=== PATIENT | female | born 1990 | race Caucasian/White ===

== ENCOUNTER 2017-02-27 11:22 | Emergency (ER) | payer BC, MEDICAID ==
--- NOTE | 2017-02-27 12:33 | EDM.PDOC ---
ED HPI GENERAL MEDICAL PROBLEM - General Chief Complaint: Abdominal Pain Stated Complaint: ABDOMINAL PAIN Time Seen by Provider: 02/27/17 11:49 Source of Information: Reports: Patient, RN Notes Reviewed - History of Present Illness INITIAL COMMENTS - FREE TEXT/NARRATIVE: 26-year-old lady comes in with abdominal pain, frequent watery diarrhea. Started with nonspecific upper mid abdominal pain 2 days ago. Sometime in the past 24 hours or so she has developed frequent watery diarrhea. SHe has had many episodes in the past 12-24 hours. She's had some nausea. No vomiting. No fever or chills. Her abdominal discomfort continues to be primarily upper mid abdomen, very intermittent in nature. No chest pain or difficulty breathing. No shoulder . discomfort. No other unusual symptomatology. Upper Abdomen Pain Score (Numeric/FACES): 3 - Related Data Allergies Allergy/AdvReac Type Severity Reaction Status Date / Time No Known Allergies Allergy Verified 02/27/17 11:45 Home Meds: Home Meds Ascorbic Acid [Vitamin C] 500 mg PO DAILY 02/27/17 [History] Ciprofloxacin HCl [Cipro] 500 mg PO BID #6 tablet 02/27/17 [Rx] PNV95/Ferrous Fumarate/FA [ Tablet] 1 tab PO DAILY 02/27/17 [History] Past Medical History - Past Surgical History HEENT Surgical History: Reports: Oral Surgery Social & Family History - Tobacco Use Smoking Status *Q: Never Smoker - Caffeine Use Caffeine Use: Reports: Coffee - Recreational Drug Use Recreational Drug Use: No ED ROS GENERAL - Review of Systems Review Of Systems: See Below Constitutional: Denies: Fever, Chills, Diaphoresis HEENT: Reports: No Symptoms Respiratory: Denies: Shortness of Breath Cardiovascular: Denies: Chest Pain GI/Abdominal: Reports: Abdominal Pain, Diarrhea, Nausea. Denies: Vomiting Musculoskeletal: Reports: No Symptoms Skin: Reports: No Symptoms Neurological: Reports: No Symptoms ED EXAM, GI/ABD - Physical Exam Exam: See Below General Appearance: Alert, No Apparent Distress Throat/Mouth: Normal Inspection, Normal Oropharynx Head: Atraumatic Neck: Supple, Full Range of Motion Respiratory/Chest: No Respiratory Distress Cardiovascular: Regular Rate, Rhythm GI/Abdominal: Soft, Tenderness (Very mild upper mid abdominal tenderness). No: Guarding, Rebound Extremities: Normal Inspection, Normal Range of Motion Neurological: Alert, Oriented, No Motor/Sensory Deficits Skin Exam: Warm, Dry, Normal Color Course - Vital Signs Last Recorded V/S: Last Vital Signs Temp 98.1 F 02/27/17 11:41 Pulse 76 02/27/17 11:41 Resp 20 02/27/17 11:41 BP 122/83 02/27/17 11:41 Pulse Ox 98 02/27/17 11:41 Departure - Departure Time of Disposition: 12:31 Disposition: Home, Self-Care 01 Condition: Fair Clinical Impression: Abdominal pain Qualifiers: Abdominal location: upper abdomen, unspecified Qualified Code(s): R10.10 - Upper abdominal pain, unspecified - Discharge Information Prescriptions: Ciprofloxacin HCl [Cipro] 500 mg PO BID #6 tablet Instructions: Abdominal Pain, Adult, [id number] Referrals: Court Brar MD [Primary Care Provider] - Forms: ED Department Discharge Additional Instructions: Clear liquids until this evening, then careful bland diet as tolerated, Cipro antibiotic 500 mg twice daily for 3 days, start that this afternoon as soon as possible, probiotic available OTC twice daily for the next 5-7 days, follow-up clinic if not much better within 2-3 days as expected, return to ED if symptoms worsening in any way
== END 2017-02-27 12:50 | disposition home or self-care (01) ==
LOC: JD.ED 11:22
CPT/HCPCS: 99283; 99284

== ENCOUNTER 2018-01-19 16:04 | Inpatient (IN) | payer BC ==
[2018-01-19] MEDS ORDERED: Zolpidem 5 MG Tab PO PRN (16:53)
[2018-01-19] MEDS ORDERED: Ondansetron 4 MG/2 ML SDV IVPUSH PRN ×2 (16:53→17:59)
[2018-01-19] MEDS ORDERED: Sodium Chloride 0.9% 10 ML Syringe FLUSH PRN (16:53)
[2018-01-19] MEDS: Misoprostol 200 MCG Tab VAG SCH ×2 (17:00→20:50)
[2018-01-19] MEDS ORDERED: Lactated Ringers 1,000 ML IV SCH (17:00)
--- NOTE | 2018-01-19 17:31 | PCM.LDHP ---
L&D History of Present Illness - General Date of Service: 01/19/18 Admit Problem/Dx: Patient Status Order with Admit Dx/Problem 01/19/18 16:55 Patient Status [ADT] Routine Admission Diagnosis/Problem Admission Diagnosis/Problem demise, greater than 22 weeks, antepartum Source of Information: Patient History Limitations: Reports: No Limitations - History of Present Illness Introduction:: Patient is a 27 y/o at 25 2/7 wks who presents today for IOL for findings of demise. Unfortunately had a affected by oomphalocele. Was seeing [facility] for care this and coordinating delivery. Called into clinic today, however, with complaints of no FM for the last 2 days. Demise was documented on US. Here today for IOL. - Related Data Allergies/Adverse Reactions: Allergies Allergy/AdvReac Type Severity Reaction Status Date / Time No Known Allergies Allergy Verified 02/27/17 11:45 Home Medications: Home Meds Ascorbic Acid [Vitamin C] 500 mg PO DAILY 02/27/17 [History] Ciprofloxacin HCl [Cipro] 500 mg PO BID #6 tablet 02/27/17 [Rx] PNV95/Ferrous Fumarate/FA [ Tablet] 1 tab PO DAILY 02/27/17 [History] Past Medical History [employer] History: Reports: PID, , Spontaneous : 2 Para: 0 - Past Surgical History HEENT Surgical History: Reports: Oral Surgery Social & Family History - Tobacco Use Smoking Status *Q: Never Smoker - Caffeine Use Caffeine Use: Reports: Coffee - Alcohol Use Alcohol Use History: No - Recreational Drug Use Recreational Drug Use: No H&P Review of Systems - Review of Systems: Review Of Systems: See Below General: Reports: No Symptoms Pulmonary: Reports: No Symptoms Cardiovascular: Reports: No Symptoms Gastrointestinal: Reports: No Symptoms Genitourinary: Reports: No Symptoms Musculoskeletal: Reports: No Symptoms Psychiatric: Reports: No Symptoms Neurological: Reports: No Symptoms L&D Exam - Exam Exam: See Below - OB Specific Movement: Not Appreciated Heart Tones: Not [place] - Mcgovern Score Mcgovern Score Cervix Position: Midposition Mcgovern Score Consistency: Medium Mcgovern Score Effacement: 0-30% Mcgovern Score Dilation: Closed Mcgovern Score 's Station: -3 Mcgovern Score Total: 2 - Exam General: Alert, Oriented, Cooperative Lungs: Clear to Auscultation, Normal Respiratory Effort Cardiovascular: Regular Rate, Regular Rhythm GI/Abdominal Exam: Soft, Non-Tender Genitourinary: Normal external exam Extremities: Normal Inspection Skin: Warm, Dry, Intact - Patient Data Result Diagrams: 01/19/18 17:25 - Problem List (1) 25 weeks gestation of SNOMED Code(s): 73896989 ICD Code: Z3A.25 - 25 WEEKS GESTATION OF Status: Acute Current Visit: Yes (2) omphalocele SNOMED Code(s): 781208704 ICD Code: NBD6478 - Status: Acute Current Visit: Yes (3) demise, greater than 22 weeks, antepartum SNOMED Code(s): 692192121, 678978233 ICD Code: O36.4XX0 - MATERNAL CARE FOR INTRAUTERINE , NOT APPLICABLE OR UNSP Status: Acute Current Visit: Yes Qualifiers: Fetus number: single or unspecified fetus Qualified Code(s): O36.4XX0 - Maternal care for intrauterine , not applicable or unspecified Problem List Initiated/Reviewed/Updated: Yes Orders Last 24hrs: Active Orders 24 hr Category Date Time Status Patient Status [ADT] Routine ADT 01/19/18 16:55 Ordered Notify Provider [RC] PRN Care 01/19/18 16:53 Ordered Peripheral IV Care [RC] . DIRECTED Care 01/19/18 16:55 Ordered Up ad Yelena [RC] ASDIRECTED Care 01/19/18 16:54 Ordered Vaginal Exam [RC] ASDIRECTED Care 01/19/18 16:53 Ordered Vital Signs [RC] ASDIRECTED Care 01/19/18 16:53 Ordered Regular Diet [DIET] Diet 01/19/18 Breakfast Ordered CBC W/O DIFF,HEMOGRAM [HEME] Routine Lab 01/19/18 16:53 Ordered TYPE AND SCREEN [BBK] Routine Lab 01/19/18 16:53 Ordered Lactated Ringers [Ringers, Lactated] 1,000 ml Med 01/19/18 17:00 Ordered IV ASDIRECTED Misoprostol [Cytotec] Med 01/19/18 17:00 Ordered 400 mcg VAG Q4H Nalbuphine [Nubain] Med 01/19/18 16:53 Ordered 10 mg IVPUSH Q2H PRN Ondansetron [Zofran] Med 01/19/18 16:53 Ordered 4 mg IVPUSH Q4H PRN Sodium Chloride 0.9% [Saline Flush] Med 01/19/18 16:53 Ordered 10 ml FLUSH ASDIRECTED PRN Zolpidem [Ambien] Med 01/19/18 16:53 Ordered 5 mg PO BEDTIME PRN Peripheral IV Insertion Adult [OM.PC] Routine Oth 01/19/18 16:53 Ordered Resuscitation Status Routine Resus Stat 01/19/18 16:53 Ordered Medication Orders Lactated Ringer's (Ringers, Lactated) 1,000 mls @ 40 mls/hr IV ASDIRECTED [facility] Misoprostol (Cytotec) 400 mcg VAG Q4H [facility] Nalbuphine HCl (Nubain) 10 mg IVPUSH Q2H PRN PRN Reason: Pain (moderate 4-6) Ondansetron HCl (Zofran) 4 mg IVPUSH Q4H PRN PRN Reason: Nausea/Vomiting Sodium Chloride (Saline Flush) 10 ml FLUSH ASDIRECTED PRN PRN Reason: Keep Vein Open Zolpidem Tartrate (Ambien) 5 mg PO BEDTIME PRN PRN Reason: Insomnia Assessment/Plan Comment:: 27 y/o woman at 25 2/7 wks with demise, oomphalocele in . * CBC and T&S * Will move forward with IOL, 400 mcg vaginally q 4 hours with 600 mcg after delivery of baby to aid in delivery of placenta * Briefly reviewed options for mementos, pictures, etc * Pain management options discussed
[2018-01-19] MEDS ORDERED: fentaNYL 100 MCG/2 ML SDV EPIDUR PRN (17:59)
[2018-01-19] MEDS ORDERED: diphenhydrAMINE 50 MG/ML SDV IVPUSH PRN (17:59)
[2018-01-19] MEDS ORDERED: ePHEDrine 50 MG/ML SDV IVPUSH PRN (17:59)
[2018-01-19] MEDS ORDERED: Bupivacaine/fentaNYL/NS 100 ML Bag EPIDUR SCH (18:00)
--- NOTE | 2018-01-19 21:07 | PCM.PNLD ---
Labor Progress Note - VS & Meds Vital Signs: Last Vital Signs Temp 37.0 C 01/19/18 16:53 Pulse 98 01/19/18 16:21 Resp 18 01/19/18 16:53 BP 120/75 01/19/18 16:21 Pulse Ox Active Medications: Current Medications Diphenhydramine HCl (Benadryl) 25 mg IVPUSH Q6H PRN PRN Reason: Pruritis Ephedrine Sulfate (Ephedrine Sulfate) 5 mg IVPUSH ASDIRECTED PRN PRN Reason: Hypotension Fentanyl (Sublimaze) 100 mcg EPIDUR ONETIME PRN PRN Reason: Pain Fentanyl/Bupivacaine HCl (Fentanyl/Bupivacaine/Ns 2 Mcg-0.125% 100 Ml) 100 ml EPIDUR ASDIRECTED [facility] Lactated Ringer's (Ringers, Lactated) 1,000 mls @ 40 mls/hr IV ASDIRECTED [facility] Misoprostol (Cytotec) 400 mcg VAG Q4H [facility] Last Admin: 01/19/18 20:50 Dose: 400 mcg Nalbuphine HCl (Nubain) 10 mg IVPUSH Q2H PRN PRN Reason: Pain (moderate 4-6) Ondansetron HCl (Zofran) 4 mg IVPUSH Q4H PRN PRN Reason: Nausea/Vomiting Ondansetron HCl (Zofran) 4 mg IVPUSH ONETIME PRN PRN Reason: Nausea/Vomiting Sodium Chloride (Saline Flush) 10 ml FLUSH ASDIRECTED PRN PRN Reason: Keep Vein Open Zolpidem Tartrate (Ambien) 5 mg PO BEDTIME PRN PRN Reason: Insomnia - Uterine Contractions Uterine Monitoring Mode: External [place] Contraction Intensity: Irritability Uterine Resting Tone: Soft - Vaginal Exam Dilation (cm): 0.5 Effacement (Percent): 50 Station: -3 Cervical Position: Posterior - Labor Progress (Free Text) Labor Progress: Doing well with 1st dose of Cytotec. 2nd dose of 400 mcg placed. Continue plan as previously described.
[2018-01-19] MEDS: Nalbuphine 20 MG/ML 1 ML Syringe IVPUSH PRN (23:21)
[2018-01-20] MEDS ORDERED: Acetaminophen 325 MG Tab PO ONE (01:22)
[2018-01-20] MEDS: Misoprostol 200 MCG Tab VAG SCH ×4 (01:39→13:33)
--- NOTE | 2018-01-20 04:55 | PCM.PREANE ---
Preanesthetic Assessment - Anesthesia/Transfusion/Family Hx Anesthesia History: Prior Anesthesia Without Reaction Family History of Anesthesia Reaction: No Transfusion History: No Prior Transfusion(s) - Review of Systems General: No Symptoms Pulmonary: No Symptoms Cardiovascular: No Symptoms Gastrointestinal: No Symptoms Neurological: No Symptoms Other: Reports: None - Physical Assessment Pulse: 98 Respiratory Rate: 18 Blood Pressure: 120/75 Temperature: 104.5 C Vital Signs: Last Vital Signs Temp 104.5 C H 01/20/18 01:37 Pulse 98 01/19/18 16:21 Resp 18 01/19/18 16:53 BP 120/75 01/19/18 16:21 Pulse Ox Height: 1.63 m Weight: 78.426 kg ASA Class: 2 Mental Status: Alert & Oriented x3 Airway Class: Mallampati = 1 Dentition: Reports: Normal Dentition Thyro-Mental Finger Breadths: 3 Mouth Opening Finger Breadths: 3 ROM/Head Extension: Full Lungs: Clear to Auscultation, Normal Respiratory Effort Cardiovascular: Regular Rate, Regular Rhythm - Lab Values: Laboratory Last Values WBC 11.97 K/mm3 (3.98-10.04) H 01/19/18 17:25 RBC 3.92 M/mm3 (3.98-5.22) L 01/19/18 17:25 Hgb 11.8 gm/L (11.2-15.7) 01/19/18 17:25 Hct 35.6 % (34.1-44.9) 01/19/18 17:25 MCV 90.8 fl (79.4-94.8) 01/19/18 17:25 MCH 30.1 pg (25.6-32.2) 01/19/18 17:25 MCHC 33.1 g/dl (32.2-35.5) 01/19/18 17:25 RDW Std Deviation 44.4 fL (36.4-46.3) 01/19/18 17:25 Plt Count 216 K/mm3 (182-369) 01/19/18 17:25 MPV 10.1 fl (9.4-12.3) 01/19/18 17:25 Blood Type O POSITIVE 01/19/18 17:25 Gel Antibody Screen Negative 01/19/18 17:25 - Allergies Allergies/Adverse Reactions: Allergies Allergy/AdvReac Type Severity Reaction Status Date / Time latex Allergy Swollen Verified 01/19/18 19:41 Eyes - Acknowledgements Anesthesia Type Planned: Epidural Pt an Appropriate Candidate for the Planned Anesthesia: Yes Alternatives and Risks of Anesthesia Discussed w Pt/Guardian: Yes Pt/Guardian Understands and Agrees with Anesthesia Plan: Yes PreAnesthesia Questionnaire [employer] History: Reports: PID, , Spontaneous - Past Surgical History HEENT Surgical History: Reports: Oral Surgery, Tonsillectomy - SUBSTANCE USE Smoking Status *Q: Never Smoker Second Hand Smoke Exposure: No Recreational Drug Use History: No - HOME MEDS Home Medications: Home Meds Ascorbic Acid [Vitamin C] 500 mg PO DAILY 02/27/17 [History] PNV95/Ferrous Fumarate/FA [ Tablet] 1 tab PO DAILY 02/27/17 [History] - CURRENT (IN HOUSE) MEDS Current Meds: Current Medications Diphenhydramine HCl (Benadryl) 25 mg IVPUSH Q6H PRN PRN Reason: Pruritis Ephedrine Sulfate (Ephedrine Sulfate) 5 mg IVPUSH ASDIRECTED PRN PRN Reason: Hypotension Fentanyl (Sublimaze) 100 mcg EPIDUR ONETIME PRN PRN Reason: Pain Fentanyl/Bupivacaine HCl (Fentanyl/Bupivacaine/Ns 2 Mcg-0.125% 100 Ml) 100 ml EPIDUR ASDIRECTED [facility] Lactated Ringer's (Ringers, Lactated) 1,000 mls @ 40 mls/hr IV ASDIRECTED [facility] Misoprostol (Cytotec) 400 mcg VAG Q4H [facility] Last Admin: 01/20/18 01:39 Dose: 400 mcg Nalbuphine HCl (Nubain) 10 mg IVPUSH Q2H PRN PRN Reason: Pain (moderate 4-6) Last Admin: 01/19/18 23:21 Dose: 10 mg Ondansetron HCl (Zofran) 4 mg IVPUSH Q4H PRN PRN Reason: Nausea/Vomiting Ondansetron HCl (Zofran) 4 mg IVPUSH ONETIME PRN PRN Reason: Nausea/Vomiting Sodium Chloride (Saline Flush) 10 ml FLUSH ASDIRECTED PRN PRN Reason: Keep Vein Open Zolpidem Tartrate (Ambien) 5 mg PO BEDTIME PRN PRN Reason: Insomnia Discontinued Medications Acetaminophen (Tylenol) 975 mg PO NOW ONE Stop: 01/20/18 01:23 Last Admin: 01/20/18 01:37 Dose: 975 mg
[2018-01-20] MEDS: Nalbuphine 20 MG/ML 1 ML Syringe IVPUSH PRN ×3 (05:00→13:32)
--- NOTE | 2018-01-20 05:28 | PCM.PNLD ---
Labor Progress Note - VS & Meds Vital Signs: Last Vital Signs Temp 104.5 C H 01/20/18 04:54 Pulse 98 01/20/18 04:54 Resp 18 01/20/18 04:54 BP 120/75 01/20/18 04:54 Pulse Ox Active Medications: Current Medications Diphenhydramine HCl (Benadryl) 25 mg IVPUSH Q6H PRN PRN Reason: Pruritis Ephedrine Sulfate (Ephedrine Sulfate) 5 mg IVPUSH ASDIRECTED PRN PRN Reason: Hypotension Fentanyl (Sublimaze) 100 mcg EPIDUR ONETIME PRN PRN Reason: Pain Fentanyl/Bupivacaine HCl (Fentanyl/Bupivacaine/Ns 2 Mcg-0.125% 100 Ml) 100 ml EPIDUR ASDIRECTED [facility] Lactated Ringer's (Ringers, Lactated) 1,000 mls @ 40 mls/hr IV ASDIRECTED [facility] Misoprostol (Cytotec) 400 mcg VAG Q4H [facility] Last Admin: 01/20/18 01:39 Dose: 400 mcg Nalbuphine HCl (Nubain) 10 mg IVPUSH Q2H PRN PRN Reason: Pain (moderate 4-6) Last Admin: 01/20/18 05:00 Dose: 10 mg Ondansetron HCl (Zofran) 4 mg IVPUSH Q4H PRN PRN Reason: Nausea/Vomiting Ondansetron HCl (Zofran) 4 mg IVPUSH ONETIME PRN PRN Reason: Nausea/Vomiting Sodium Chloride (Saline Flush) 10 ml FLUSH ASDIRECTED PRN PRN Reason: Keep Vein Open Zolpidem Tartrate (Ambien) 5 mg PO BEDTIME PRN PRN Reason: Insomnia Discontinued Medications Acetaminophen (Tylenol) 975 mg PO NOW ONE Stop: 01/20/18 01:23 Last Admin: 01/20/18 01:37 Dose: 975 mg - Uterine Contractions Contraction Intensity: Moderate to Strong - Vaginal Exam Dilation (cm): 0.5 Effacement (Percent): 50 Station: -2 Cervical Position: Midposition - Labor Progress (Free Text) Labor Progress: Patient received 3rd dose of Cytotec around 0115 overnight. Since about 0430 much more uncomfortable. Exam stable. Plunkett bulb balloon placed to aid in dilation so that AROM can be achieved. Given current degree of discomfort will hold next dose of cytotec for now. Has been febrile overnight which is thought to be secondary to high dose cytotec and not indicative of underlying infection. Will continue to monitor closely
[2018-01-20] MEDS ORDERED: Acetaminophen 325 MG Tab PO PRN ×2 (07:40→15:08)
[2018-01-20] MEDS ORDERED: Lidocaine 1% 50 ML MDV ONE (12:39)
[2018-01-20] MEDS ORDERED: Methylergonovine 0.2 MG/1 ML Amp ONE (14:19)
[2018-01-20] MEDS ORDERED: Misoprostol 200 MCG Tab PO STA (14:30)
[2018-01-20] MEDS ORDERED: Methylergonovine 0.2 MG/1 ML Amp IM STA (14:31)
--- NOTE | 2018-01-20 14:38 | PCM.DEL ---
L & D Note - General Info Date of Service: 01/20/18 - Delivery Note Cervical Ripening Method: Balloon Device, Misoprostil Delivery Outcome: Stillbirth Infant Delivery Method: Spontaneous Vaginal Delivery-Single Delivery Mode: Spontaneous Presentation: Vertex Nuchal Cord: None Anesthesia Type: None Amniotic Fluid Description: Meconium Stained Episiotomy Type: None Laceration: None Placenta: Intact, Spontaneous Cord: 3 Vessels Estimated Blood Loss: 450 Delivery Comments (Free Text/Narrative):: Patient found to be complete and began pushing. With maternal pushing effort head delivered and very quickly so did remainder of body. Cord clamped and cut. Baby handed to mom/dad. Patient given 600 mcg of buccal cytotec to aid in delivery of placenta. This occurred quickly and without incident. Inspection of the perineum showed no lacerations. Shortly after delivery patient did have an increase in bleeding. Sweep of lower uterine segment did show a moderate sized clot. Dose of IM methergine also given. These two interventions did resolve heavy bleeding - General Info Date of Service: 01/20/18 - Patient Data Vitals - Most Recent: Last Vital Signs Temp 104.5 C H 01/20/18 04:54 Pulse 98 01/20/18 04:54 Resp 18 01/20/18 04:54 BP 120/75 01/20/18 04:54 Pulse Ox Weight - Most Recent: 78.426 kg I&O - Last 24 Hours: Intake & Output 01/19/18 01/20/18 01/20/18 22:59 06:59 14:59 Intake Total 300 Balance 300 Lab Results Last 24 Hours: Laboratory Results - last 24 hr 01/19/18 01/19/18 Range/Units 17:25 17:25 WBC 11.97 H (3.98-10.04) K/mm3 RBC 3.92 L (3.98-5.22) M/mm3 Hgb 11.8 (11.2-15.7) gm/L Hct 35.6 (34.1-44.9) % MCV 90.8 (79.4-94.8) fl MCH 30.1 (25.6-32.2) pg MCHC 33.1 (32.2-35.5) g/dl RDW Std Deviation 44.4 (36.4-46.3) fL Plt Count 216 (182-369) K/mm3 MPV 10.1 (9.4-12.3) fl Blood Type O POSITIVE Gel Antibody Screen Negative Med Orders - Current: Current Medications Acetaminophen (Tylenol) 975 mg PO Q6H PRN PRN Reason: Fever Diphenhydramine HCl (Benadryl) 25 mg IVPUSH Q6H PRN PRN Reason: Pruritis Ephedrine Sulfate (Ephedrine Sulfate) 5 mg IVPUSH ASDIRECTED PRN PRN Reason: Hypotension Fentanyl (Sublimaze) 100 mcg EPIDUR ONETIME PRN PRN Reason: Pain Fentanyl/Bupivacaine HCl (Fentanyl/Bupivacaine/Ns 2 Mcg-0.125% 100 Ml) 100 ml EPIDUR ASDIRECTED [facility] Lactated Ringer's (Ringers, Lactated) 1,000 mls @ 40 mls/hr IV ASDIRECTED [facility] Misoprostol (Cytotec) 400 mcg VAG Q4H [facility] Last Admin: 01/20/18 13:33 Dose: 600 mcg Nalbuphine HCl (Nubain) 10 mg IVPUSH Q2H PRN PRN Reason: Pain (moderate 4-6) Last Admin: 01/20/18 13:32 Dose: 5 mg Ondansetron HCl (Zofran) 4 mg IVPUSH Q4H PRN PRN Reason: Nausea/Vomiting Ondansetron HCl (Zofran) 4 mg IVPUSH ONETIME PRN PRN Reason: Nausea/Vomiting Sodium Chloride (Saline Flush) 10 ml FLUSH ASDIRECTED PRN PRN Reason: Keep Vein Open Zolpidem Tartrate (Ambien) 5 mg PO BEDTIME PRN PRN Reason: Insomnia Discontinued Medications Acetaminophen (Tylenol) 975 mg PO NOW ONE Stop: 01/20/18 01:23 Last Admin: 01/20/18 01:37 Dose: 975 mg Lidocaine HCl (Xylocaine 1%) Confirm Administered Dose 50 ml .ROUTE .STK-MED ONE Stop: 01/20/18 12:40 Methylergonovine Maleate (Methergine) Confirm Administered Dose 0.2 mg .ROUTE .STK-MED ONE Stop: 01/20/18 14:20 Methylergonovine Maleate (Methergine) 0.2 mg IM Q4H STA Stop: 01/20/18 14:32 Misoprostol (Cytotec) 600 mcg PO NOW STA Stop: 01/20/18 14:31 - Problem List & Annotations (1) 25 weeks gestation of SNOMED Code(s): 93736331 Code(s): Z3A.25 - 25 WEEKS GESTATION OF Status: Acute Current Visit: Yes (2) omphalocele SNOMED Code(s): 578652420 Code(s): PDE5190 - Status: Acute Current Visit: Yes (3) demise, greater than 22 weeks, antepartum SNOMED Code(s): 563475408, 336747224 Code(s): O36.4XX0 - MATERNAL CARE FOR INTRAUTERINE , NOT APPLICABLE OR UNSP Status: Acute Current Visit: Yes Qualifiers: Fetus number: single or unspecified fetus Qualified Code(s): O36.4XX0 - Maternal care for intrauterine , not applicable or unspecified - Problem List Review Problem List Initiated/Reviewed/Updated: Yes - My Orders Last 24 Hours: My Active Orders 01/19/18 16:53 Notify Provider [RC] PRN Vaginal Exam [RC] ASDIRECTED Vital Signs [RC] ASDIRECTED Nalbuphine [Nubain] 10 mg IVPUSH Q2H PRN Ondansetron [Zofran] 4 mg IVPUSH Q4H PRN Sodium Chloride 0.9% [Saline Flush] 10 ml FLUSH ASDIRECTED PRN Zolpidem [Ambien] 5 mg PO BEDTIME PRN Peripheral IV Insertion Adult [OM.PC] Routine Resuscitation Status Routine 01/19/18 16:54 Up ad Yelena [RC] ASDIRECTED 01/19/18 16:55 Patient Status [ADT] Routine Peripheral IV Care [RC] . DIRECTED 01/19/18 17:00 Lactated Ringers [Ringers, Lactated] 1,000 ml IV ASDIRECTED Misoprostol [Cytotec] 400 mcg VAG Q4H 01/20/18 07:40 Acetaminophen [Tylenol] 975 mg PO Q6H PRN - Assessment Assessment:: 27 y/o G2 now [id number] woman PPD#0 from at 25 2/7 wks after demise; oomphalocele noted in . - Plan Plan:: * Will monitor bleeding closely * Mementos / arrangement to be made through nursing team * Does desire chromosomal microarray (Previously declined through MFM, but now wants to complete) and so ordered off of cord and placenta * Patient can discharge home late this PM vs tomorrow depending upon her preference Debbie Ayala MD
[2018-01-20] MEDS ORDERED: Witch Hazel Medicated Pads 100/Jar TOP PRN (15:08)
[2018-01-20] MEDS ORDERED: Docusate Sodium 100 MG Cap PO PRN (15:08)
[2018-01-20] MEDS ORDERED: Benzocaine/Menthol 20%-0.5% Spray 56 GM Canister TOP PRN (15:08)
[2018-01-20] MEDS ORDERED: Lanolin 100% Cream 7 GM Tube TOP PRN (15:08)
[2018-01-20] MEDS ORDERED: Ibuprofen 600 MG Tab PO PRN (15:08)
--- NOTE | 2018-01-20 15:11 | PCM.DCSUM1 ---
<Debbie Ayala - Last Filed: 01/20/18 15:11> Discharge Summary - Discharge Data Discharge Date: 01/20/18 Discharge Disposition: Home, Self-Care 01 Condition: Good - Discharge Diagnosis/Problem(s) (1) 25 weeks gestation of SNOMED Code(s): 57510512 ICD Code: Z3A.25 - 25 WEEKS GESTATION OF Status: Acute Current Visit: Yes (2) omphalocele SNOMED Code(s): 788080039 ICD Code: [id number] - Status: Acute Current Visit: Yes (3) demise, greater than 22 weeks, antepartum SNOMED Code(s): 911273900, 410643819 ICD Code: O36.4XX0 - MATERNAL CARE FOR INTRAUTERINE , NOT APPLICABLE OR UNSP Status: Acute Current Visit: Yes Qualifiers: Fetus number: single or unspecified fetus Qualified Code(s): O36.4XX0 - Maternal care for intrauterine , not applicable or unspecified - Patient Instructions Diet: Regular Diet as Tolerated Activity: As Tolerated Activity, Other: Pelvic Rest for 6 weeks Driving: May Drive Today Showering/Bathing: May Shower Showering/Bathing, Other: May Bathe Notify Provider of: Fever, Increased Pain, Swelling and Redness, Drainage, Nausea and/or Vomiting - Discharge Plan Home Medications: Home Meds PNV95/Ferrous Fumarate/FA [ Tablet] 1 tab PO DAILY 02/27/17 [History] Ibuprofen [Motrin] 600 mg PO Q6H PRN tablet 01/20/18 [Rx] Referrals: Debbie Ayala MD [Primary Care Provider] - (2 weeks - check ) - Patient Data Vitals - Most Recent: Last Vital Signs Temp 104.5 C H 01/20/18 04:54 Pulse 98 01/20/18 04:54 Resp 18 01/20/18 04:54 BP 120/75 01/20/18 04:54 Pulse Ox Weight - Most Recent: 78.426 kg I&O - Last 24 hours: Intake & Output 01/20/18 01/20/18 01/20/18 06:59 14:59 22:59 Intake Total 300 Balance 300 Lab Results - Last 24 hrs: Laboratory Results - last 24 hr 05/31/18 05/31/18 Range/Units 17:25 17:25 WBC 11.97 H (3.98-10.04) K/mm3 RBC 3.92 L (3.98-5.22) M/mm3 Hgb 11.8 (11.2-15.7) gm/L Hct 35.6 (34.1-44.9) % MCV 90.8 (79.4-94.8) fl MCH 30.1 (25.6-32.2) pg MCHC 33.1 (32.2-35.5) g/dl RDW Std Deviation 44.4 (36.4-46.3) fL Plt Count 216 (182-369) K/mm3 MPV 10.1 (9.4-12.3) fl Blood Type O POSITIVE Gel Antibody Screen Negative Med Orders - Current: Current Medications Acetaminophen (Tylenol) 650 mg PO Q4H PRN PRN Reason: mild pain or fever Benzocaine/Menthol (Dermoplast Pain Relief [place]) 0 gm TOP ASDIRECTED PRN PRN Reason: Perineal Comfort Measure Docusate Sodium (Colace) 100 mg PO BID PRN PRN Reason: Constipation Emollient Ointment (Lansinoh Hpa) 0 gm TOP ASDIRECTED PRN PRN Reason: Sore Nipples Ibuprofen (Motrin) 600 mg PO Q6H PRN PRN Reason: Mild pain or fever Witch Basia (Tucks) 1 pad TOP ASDIRECTED PRN PRN Reason: Hemorrhoid pain Discontinued Medications Acetaminophen (Tylenol) 975 mg PO NOW ONE Stop: 01/20/18 01:23 Last Admin: 01/20/18 01:37 Dose: 975 mg Acetaminophen (Tylenol) 975 mg PO Q6H PRN PRN Reason: Fever Diphenhydramine HCl (Benadryl) 25 mg IVPUSH Q6H PRN PRN Reason: Pruritis Ephedrine Sulfate (Ephedrine Sulfate) 5 mg IVPUSH ASDIRECTED PRN PRN Reason: Hypotension Fentanyl (Sublimaze) 100 mcg EPIDUR ONETIME PRN PRN Reason: Pain Fentanyl/Bupivacaine HCl (Fentanyl/Bupivacaine/Ns 2 Mcg-0.125% 100 Ml) 100 ml EPIDUR ASDIRECTED [facility] Lactated Ringer's (Ringers, Lactated) 1,000 mls @ 40 mls/hr IV ASDIRECTED MARTELL Lidocaine HCl (Xylocaine 1%) Confirm Administered Dose 50 ml .ROUTE .STK-MED ONE Stop: 01/20/18 12:40 Methylergonovine Maleate (Methergine) Confirm Administered Dose 0.2 mg .ROUTE .STK-MED ONE Stop: 01/20/18 14:20 Methylergonovine Maleate (Methergine) 0.2 mg IM Q4H STA Stop: 01/20/18 14:32 Misoprostol (Cytotec) 400 mcg VAG Q4H MARTELL Last Admin: 01/20/18 13:33 Dose: 600 mcg Misoprostol (Cytotec) 600 mcg PO NOW STA Stop: 01/20/18 14:31 Nalbuphine HCl (Nubain) 10 mg IVPUSH Q2H PRN PRN Reason: Pain (moderate 4-6) Last Admin: 01/20/18 13:32 Dose: 5 mg Ondansetron HCl (Zofran) 4 mg IVPUSH Q4H PRN PRN Reason: Nausea/Vomiting Ondansetron HCl (Zofran) 4 mg IVPUSH ONETIME PRN PRN Reason: Nausea/Vomiting Sodium Chloride (Saline Flush) 10 ml FLUSH ASDIRECTED PRN PRN Reason: Keep Vein Open Zolpidem Tartrate (Ambien) 5 mg PO BEDTIME PRN PRN Reason: Insomnia <Samantha Martinez - Last Filed: 01/21/18 08:22> Discharge Summary - Hospital Course Brief History: Admitted by Dr. Ayala for induction secondary to demise. Delivery and uncomplicated course. - Patient Instructions Diet: Regular Diet as Tolerated Activity: As Tolerated Driving: May Drive Today Showering/Bathing: May Shower Notify Provider of: Fever, Increased Pain, Swelling and Redness, Drainage, Nausea and/or Vomiting - General Info Date of Service: 01/21/18 Functional Status: Reports: Pain Controlled - Review of Systems General: Reports: No Symptoms HEENT: Reports: No Symptoms Pulmonary: Reports: No Symptoms Cardiovascular: Reports: No Symptoms Gastrointestinal: Reports: No Symptoms Genitourinary: Reports: No Symptoms Musculoskeletal: Reports: No Symptoms Skin: Reports: No Symptoms Neurological: Reports: No Symptoms Psychiatric: Reports: No Symptoms - Patient Data Vitals - Most Recent: Last Vital Signs Temp 36.6 C 01/21/18 03:45 Pulse 70 01/21/18 03:45 Resp 15 01/21/18 03:45 BP 105/71 01/21/18 03:45 Pulse Ox 97 01/21/18 03:45 I&O - Last 24 hours: Intake & Output 01/20/18 01/21/18 01/21/18 22:59 06:59 14:59 Intake Total 120 Balance 120 Med Orders - Current: Current Medications Acetaminophen (Tylenol) 650 mg PO Q4H PRN PRN Reason: mild pain or fever Benzocaine/Menthol (Dermoplast Pain Relief [place]) 0 gm TOP ASDIRECTED PRN PRN Reason: Perineal Comfort Measure Docusate Sodium (Colace) 100 mg PO BID PRN PRN Reason: Constipation Emollient Ointment (Lansinoh Hpa) 0 gm TOP ASDIRECTED PRN PRN Reason: Sore Nipples Ibuprofen (Motrin) 600 mg PO Q6H PRN PRN Reason: Mild pain or fever Last Admin: 01/20/18 21:01 Dose: 600 mg Witch Basia (Tucks) 1 pad TOP ASDIRECTED PRN PRN Reason: Hemorrhoid pain Discontinued Medications Acetaminophen (Tylenol) 975 mg PO NOW ONE Stop: 01/20/18 01:23 Last Admin: 01/20/18 01:37 Dose: 975 mg Acetaminophen (Tylenol) 975 mg PO Q6H PRN PRN Reason: Fever Diphenhydramine HCl (Benadryl) 25 mg IVPUSH Q6H PRN PRN Reason: Pruritis Ephedrine Sulfate (Ephedrine Sulfate) 5 mg IVPUSH ASDIRECTED PRN PRN Reason: Hypotension Fentanyl (Sublimaze) 100 mcg EPIDUR ONETIME PRN PRN Reason: Pain Fentanyl/Bupivacaine HCl (Fentanyl/Bupivacaine/Ns 2 Mcg-0.125% 100 Ml) 100 ml EPIDUR ASDIRECTED [facility] Lactated Ringer's (Ringers, Lactated) 1,000 mls @ 40 mls/hr IV ASDIRECTED [facility] Lidocaine HCl (Xylocaine 1%) Confirm Administered Dose 50 ml .ROUTE .STK-MED ONE Stop: 01/20/18 12:40 Methylergonovine Maleate (Methergine) Confirm Administered Dose 0.2 mg .ROUTE .STK-MED ONE Stop: 01/20/18 14:20 Methylergonovine Maleate (Methergine) 0.2 mg IM Q4H STA Stop: 01/20/18 14:32 Last Admin: 01/21/18 08:13 Dose: 0.2 mg Misoprostol (Cytotec) 400 mcg VAG Q4H [facility] Last Admin: 01/20/18 13:33 Dose: 600 mcg Misoprostol (Cytotec) 600 mcg PO NOW STA Stop: 01/20/18 14:31 Last Admin: 01/20/18 14:25 Dose: 600 mcg Nalbuphine HCl (Nubain) 10 mg IVPUSH Q2H PRN PRN Reason: Pain (moderate 4-6) Last Admin: 01/20/18 13:32 Dose: 5 mg Ondansetron HCl (Zofran) 4 mg IVPUSH Q4H PRN PRN Reason: Nausea/Vomiting Ondansetron HCl (Zofran) 4 mg IVPUSH ONETIME PRN PRN Reason: Nausea/Vomiting Sodium Chloride (Saline Flush) 10 ml FLUSH ASDIRECTED PRN PRN Reason: Keep Vein Open Zolpidem Tartrate (Ambien) 5 mg PO BEDTIME PRN PRN Reason: Insomnia - Exam General: Reports: Alert, Oriented HEENT: Reports: Pupils Equal, Pupils Reactive, EOMI, Mucous Membr. Moist/[place] Neck: Reports: Supple Lungs: Reports: Clear to Auscultation, Normal Respiratory Effort Cardiovascular: Reports: Regular Rate, Regular Rhythm GI/Abdominal Exam: Normal Bowel Sounds, Soft, Non-Tender, No Organomegaly, No Distention, No Abnormal Bruit, No Mass, Pelvis Stable Back Exam: Reports: Normal Inspection, Full Range of Motion Extremities: Normal Inspection, Normal Range of Motion, Non-Tender Skin: Reports: Warm, Dry, Intact Neurological: Reports: No New Focal Deficit Psy/Mental Status: Reports: Alert, Normal Affect, Normal Mood
[2018-01-21 14:42] VITALS: BP 110/66
== END 2018-01-21 08:20 | disposition home or self-care (01) | DRG 560 ==
LOC: JD.OB 16:04 → OBSVTOIN 01-20 14:38 → JD.OB 01-20 19:11
PROVIDERS: ADMIT Obstetrics & Gynecology; ATTEND Obstetrics & Gynecology
PROC: 10E0XZZ Delivery of Products of Conception, External Approach (ICD-10-PCS; principal; 2018-01-20)
PROC: 3E0P7VZ Introduction of Hormone into Female Reproductive, Via Natural or Artificial Opening (ICD-10-PCS; 2018-01-20)
PROC: 3E033VJ Introduction of Other Hormone into Peripheral Vein, Percutaneous Approach (ICD-10-PCS; 2018-01-20)
PROC: 10907ZC Drainage of Amniotic Fluid, Therapeutic from Products of Conception, Via Natural or Artificial Opening (ICD-10-PCS; 2018-01-20)
PROC: 0UC97ZZ Extirpation of Matter from Uterus, Via Natural or Artificial Opening (ICD-10-PCS; 2018-01-20)
DX: O36.4XX0 Maternal care for intrauterine death, not applicable or unspecified (principal); O66.3 Obstructed labor due to other abnormalities of fetus; O77.0 Labor and delivery complicated by meconium in amniotic fluid; O72.1 Other immediate postpartum hemorrhage; O75.2 Pyrexia during labor, not elsewhere classified; Z3A.25 25 weeks gestation of pregnancy; Z37.1 Single stillbirth
CPT/HCPCS: 36415; 59409; 85027; 86850; 86900; 86901; A9270-GY; J2210; J2300

== ENCOUNTER 2018-02-09 20:11 | Emergency (ER) | payer BC ==
[2018-02-09] MEDS ORDERED: Sodium Chloride 0.9% 1,000 ML IV SCH (20:15)
--- NOTE | 2018-02-09 20:19 | EDM.PDOC ---
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 Patient is 3 weeks . She unfortunately lost a 23 week gestation due to miscarriage 3 weeks ago. 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 First ended in miscarriages well. She reports today she's been bleeding quite heavily off and on starting about 1300 hrs. today. She states it feels almost like something broke inside and continued to bleed. She reports she had a fairly heavy vaginal flow for 4-5 days and it seemed to quit. Tonight she is soaked a pad per hour for 2 consecutive hours with associated passage of quarters-sized clots per vagina. Initiated diffuse lower abdominal cramping pain and low back pressure discomfort. Feeling lightheaded and dizzy. Patient is orthostatic lying blood pressure is 80/46 with a pulse rate of 73. Standing BP is 95/53 with a heart rate of 99. Onset: Today Onset Date: 02/09/18 Onset Time: 13:00 Duration: Hour(s): Location: Reports: Abdomen, Back (Lower abdominal cramping pain intermittent.) Quality: Reports: Ache ( Associated diffuse low back ache associated with menstrual cramps.), Other Severity: Moderate (Menstrual cramping) Improves with: Reports: None Worsens with: Reports: None Context: Reports: Other (Sudden heavy vaginal flow with clots and cramping 3 weeks post miscarriage at 23 weeks gestation.). Denies: Activity, Exercise, Lifting, Sick Contact, Trauma Associated Symptoms: Reports: Other. 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 Second ended 3 weeks ago January 20 at 23 weeks gestation due to congenital abnormalities of the fetus.) Para: 0 - Past Surgical History HEENT Surgical History: Reports: Oral Surgery, Tonsillectomy Social & Family History - Family History Family Medical History: Noncontributory - Caffeine Use Caffeine Use: Reports: Coffee - Living Situation & Occupation Living situation: Reports: Occupation: Employed ED ROS GENERAL - Review of Systems Review Of Systems: See Below Constitutional: Reports: Malaise, Weakness, Fatigue. Denies: Fever, Chills HEENT: Reports: No Symptoms. Denies: Vertigo Respiratory: Reports: No Symptoms Cardiovascular: Reports: Lightheadedness (With standing) Endocrine: Reports: Fatigue GI/Abdominal: Reports: Abdominal Pain (Lower abdominal cramping pain -- menstrual cramps.) : Reports: Irregular Menses (Heavy vaginal flow to the point of soaking a pad per hour for 2 consecutive hours tonight. Associated large clots.) Musculoskeletal: Reports: Back Pain Skin: Reports: No Symptoms (Low back pain associated with menstrual cramping) Neurological: Reports: No Symptoms Psychiatric: Reports: No Symptoms Hematologic/Lymphatic: Reports: No Symptoms Immunologic: Reports: No Symptoms ED EXAM, RENAL/ - Physical Exam Exam: See Below Exam Limited By: No Limitations General Appearance: Alert, WD/WN, Mild Distress Eye Exam: Bilateral Eye: Normal Inspection (Normal colored blood for margins.) Throat/Mouth: Normal Inspection, Normal Lips, Normal Teeth, Normal Oropharynx, Perioral Cyanosis Head: Atraumatic Neck: Normal Inspection, Supple, Non-Tender, Full Range of Motion. No: Lymphadenopathy (L), Lymphadenopathy (R) Respiratory/Chest: No Respiratory Distress, Lungs Clear, Normal Breath Sounds, No Accessory Muscle Use Cardiovascular: Normal Peripheral Pulses, Regular Rate, Rhythm, No Edema, No Gallop, No Murmur GI/Abdominal: Normal Bowel Sounds, Soft, No Organomegaly, Tender (Mild to moderate tenderness suprapubically.). No: Guarding, Rigid, Rebound (Female) Exam: Enlarged Uterus (4 weeks gestation.), Vaginal Bleeding ( Fairly heavy vaginal bleeding and vagina is filled with clots. Cervix is dilated and except the fingertip.), Other (Father's covered with fresh blood and dried blood.). No: Normal External Exam Neurological: Alert, Oriented, CN II-XII Intact, Normal Cognition, Normal Gait Psychiatric: Normal Affect, Normal Mood Skin Exam: Warm, Dry, Intact, Normal Color, No Rash Course - Vital Signs Last Recorded V/S: Last Vital Signs Temp 36.6 C 02/09/18 20:21 Pulse 79 02/09/18 20:21 Resp 18 02/09/18 20:21 BP 106/65 02/09/18 20:21 Pulse Ox 100 02/09/18 20:21 Orthostatic Blood Pressure [ 95/53 Standing] Orthostatic Blood Pressure [ 95/57 Sitting] Orthostatic Blood Pressure [ 80/46 Supine] - Orders/Labs/Meds Orders: Active Orders 24 hr Category Date Time Status Orthostatic Vital Signs [RC] ASDIRECTED Care 02/09/18 20:16 Active Transvaginal Non OB [US] Stat Exams 02/09/18 21:30 Taken Labs: Laboratory Tests 02/09/18 02/09/18 02/09/18 Range/Units 20:45 20:45 20:45 WBC 9.41 (3.98-10.04) K/mm3 RBC 4.03 (3.98-5.22) M/mm3 Hgb 12.0 (11.2-15.7) gm/L Hct 36.9 (34.1-44.9) % MCV 91.6 (79.4-94.8) fl MCH 29.8 (25.6-32.2) pg MCHC 32.5 (32.2-35.5) g/dl RDW Std Deviation 41.4 (36.4-46.3) fL Plt Count 260 (182-369) K/mm3 MPV 10.5 (9.4-12.3) fl Neutrophils % (Manual) 68 H (40-60) % Band Neutrophils % 0 (0-10) % Lymphocytes % (Manual) 27 (20-40) % Atypical Lymphs % 0 % Monocytes % (Manual) 3 (2-10) % Eosinophils % (Manual) 2 (0.7-5.8) % Basophils % (Manual) 0 L (0.1-1.2) Platelet Estimate Adequate RBC Morph Comment Normal Sodium 140 (136-145) mEq/L Potassium 3.6 (3.5-5.1) mEq/L Chloride 105 (98-107) mEq/L Carbon Dioxide 26 (21-32) mEq/L Anion Gap 12.6 (5-15) BUN 10 (7-18) mg/dL Creatinine 0.9 (0.55-1.02) mg/dL Est Cr Clr Drug Dosing 81.08 mL/min Estimated GFR (MDRD) > 60 (>60) mL/min BUN/Creatinine Ratio 11.1 L (14-18) Glucose 93 (74-106) mg/dL Calcium 8.8 (8.5-10.1) mg/dL Total Bilirubin 0.3 (0.2-1.0) mg/dL AST 21 (15-37) U/L ALT 24 (14-59) U/L Alkaline Phosphatase 105 (46-116) U/L Total Protein 6.7 (6.4-8.2) g/dl Albumin 3.4 (3.4-5.0) g/dl Globulin 3.3 gm/dL Albumin/Globulin Ratio 1.0 (1-2) HCG, Quant 47.0 mIU/mL Blood Type O POSITIVE Gel Antibody Screen Negative Meds: Medications Discontinued Medications Generic Name Dose Route Start Last Admin Trade Name Freq PRN Reason Stop Dose Admin Sodium Chloride 1,000 mls @ 500 mls/hr 02/09/18 20:15 02/09/18 20:25 Normal Saline IV 500 mls/hr ASDIRECTED MARTELL Administration Ondansetron HCl 4 mg 02/09/18 23:27 02/09/18 23:37 Zofran Odt PO 02/09/18 23:28 4 mg ONETIME ONE Administration Oxycodone/Acetaminophen 2 tab 02/09/18 23:26 02/09/18 23:37 Percocet 325-5 Mg PO 02/09/18 23:27 2 tab ONETIME ONE Administration - Radiology Interpretation Free Text/Narrative:: 27-year-old female presents to the ED with heavy bleeding per vagina 3 weeks . She had a spontaneous miscarriage at 23 weeks gestation due to congenital defects of the fetus. I am omphalocele plus other defects. Is 2 para 0. First ended in miscarriages well without need for D& C. Patient has heavy vaginal flow today's at since 1300 hrs. intermittently with gushes of blood and clot. Has soaked 2 pads tonight consecutively. Exam reveals vagina filled with blood clots. Cervix is dilated and patent except some fingertip. Uterus feels to be for 5 weeks in size. It is moderately tender. Plan routine labs to be done. Normal saline at 500 mils per hour. Last meal was around 1800 hrs. with some water afterwards. Transvaginal ultrasound to be done. - Re-Assessments/Exams Free Text/Narrative Re-Assessment/Exam: 02/09/18 22:25 Labs reveal a normal white count at 9.41. Differential reveals 60 % neutrophils and no bands. Hemoglobin is 12.0 with hematocrit of 36.9. Sodium is 140 with potassium of 3.6. Chloride 105 with a bicarbonate 26. And a gap is normal at 12.6. B1 is 10 with a creatinine of 0.9. Glucose is 93. Calcium is 8.8. AST is 21. ALT is 24 bilirubin is 0.3. Alkaline phosphatase is normal 105. Quantitative HCG is low at 47.0. Check her pad reveals she passed a fairly large clot per vagina after the ultrasound was completed. He states since that time bleeding seems to be minimal. On my inspection of the ultrasound appears to be a significant amount of debris in the endometrial cavity. Awaiting [facility] report. 02/09/18 23:27 shunt states she is bleeding very little since she had the ultrasound. The ultrasound report is finally available. The uterus measures 8.1 x 5.2 x 6.3 cm. The endometrium is heterogenous and there may be some retained clots within the endometrium. There is also slightly increased vascularity. There is no definite retained products of conception. In the cervix there is a hyperechoic region about 4 cm in greatest diameter that is suggestive of a clot on the cervix and lower uterine segment. No myometrial mass is identified. Right ovary and left ovary have normal blood flow. No free fluid in the pelvis. Patient is still cramping more in her right side of the left. Will give her Percocet 5//25 milligram tablet now with Zofran 4 mg by mouth as well. 1 tablet will be given for Percocet at home as well if needed. She will follow-up with Dr. Lowe tomorrow if flow increases overnight or she soaks more than 2 pads per hour. Of note her IV infiltrated left volar forearm with mild swelling and ecchymoses. This occurred at after about 600 mils of IV fluid . IV was removed. Plan she'll be discharged to home on Percocet 5/325 milligram tablet now with Zofran 4 mg sublingual. One Percocet will be sent home with her to be used in 4-6 hours if needed for abdominal cramping pain. Advised follow-up with Dr. Ayala tomorrow. Departure - Departure Time of Disposition: 23:29 Disposition: Home, Self-Care 01 Condition: Fair Clinical Impression: bleeding Qualifiers: hemorrhage type: delayed hemorrhage Qualified Code(s): O72.2 - Delayed and secondary hemorrhage - Discharge Information Instructions: Hemorrhage Referrals: Debbie Ayala MD [Primary Care Provider] - Forms: ED Department Discharge Additional Instructions: Evaluation the emergency room tonight in regards to heavy vaginal bleeding that started at about 1300 hrs. today. Associated passage of clots. Miscarriage occurred approximately [address] Ayala was fairly confident that placenta was removed intact. Vital signs reveal that you are mildly orthostatic on short confluence. You therefore received intravenous fluids while in the ED but unfortunately the IV went interstitial at about 600 mils. He was thus removed. Expect soft tissue swelling to dissipate over the next 48 hours the left forearm. Lab work revealed hemoglobin to be stable at 12.0. Normal is 14. Patency test is most positive and the quantitative beta-hCG was 45 which is very low but normal is 0. Ultrasound performed reveals mild debris within the endometrial cavity suggestive of some blood clot. There is a larger clot down in the lower uterine segment and cervix that has to pass yet. Periods some increased cramping overnight with passage of clot but I feel the bleeding for the most part will come under control over the next 48 hours. Do not see a need for D&C at this time. However if the bleeding continues overnight and use soak a pad per hour again for 2 consecutive hours then follow-up with Dr. Ayala is indicated. You're given a Percocet tablet 5/3/25 milligrams and Zofran under the tongue in the ED before discharge. He may repeat the Percocet with little food or crackers in your stomach in 4-6 hours if needed. After this may take Motrin 600 mg every 6 hours which relieves some cramping and reduces blood loss. - My Orders Last 24 Hours: My Active Orders 02/09/18 20:16 Orthostatic Vital Signs [RC] ASDIRECTED 02/09/18 21:30 Transvaginal Non OB [US] Stat - Assessment/Plan Last 24 Hours: My Active Orders 02/09/18 20:16 Orthostatic Vital Signs [RC] ASDIRECTED 02/09/18 21:30 Transvaginal Non OB [US] Stat
[2018-02-09 20:23] VITALS: BP 106/65
[2018-02-09] MEDS ORDERED: Acetaminophen/oxyCODONE 325-5 MG Tab PO ONE (23:26)
[2018-02-09] MEDS ORDERED: Ondansetron 4 MG Tab.DIS PO ONE (23:27)
--- NOTE | 2018-02-10 10:22 | US ---
Pelvic ultrasound: Multiple real-time images were obtained transvaginally. Comparison: No previous study. Uterus is anteverted. Heterogeneous material identified within the endometrial cavity showing increased vascularity. Findings are most likely due to retained products of conception given the increased vascularity. Echogenic area is seen within the lower uterine segment measuring up to 4.0 cm most likely representing blood clot. Ovaries are not identified with certainty. No free fluid is seen. Measurements: Uterus: Length 8.1 cm, transverse width 6.3 cm, AP height 5.2 cm Impression: 1. Heterogeneous material within the endometrial cavity showing increased vascularity most likely representing retained products of conception. 4 cm blood clot felt to be present within the lower uterine segment. 2. No additional abnormality is identified. Diagnostic code #3 I agree with preliminary report from [facility], finalized at 02/10/18, 1209 AM Central Time
== END 2018-02-09 23:45 | disposition home or self-care (01) ==
LOC: JD.ED 20:11
DX: O72.2 Delayed and secondary postpartum hemorrhage (principal); Z79.899 Other long term (current) drug therapy; Z91.040 Latex allergy status
CPT/HCPCS: 36415; 76830; 80053; 84702; 85007; 85027; 86850; 86900; 86901; 96360; 99284; A9270; J7040; 99283

== ENCOUNTER 2018-02-13 09:35 | Inpatient (IN) | payer BC ==
[~2018-02-13 09:35] MED LIST: Lidocaine 1% 4 ML ONE; Midazolam 1 MG/ML 2 ML SDV ONE; Ondansetron 4 MG/2 ML SDV ONE; Propofol 200 MG/20 ML SDV ONE; Rocuronium 50 MG/5 ML Vial ONE; fentaNYL 100 MCG/2 ML SDV ONE
[2018-02-13] MEDS ORDERED: ceFAZolin 2 GM in Premix Bag 1 BAG IV ONE (09:43)
--- NOTE | 2018-02-13 09:46 | PCM.HP ---
H&P History of Present Illness - General Date of Service: 02/13/18 Admit Problem/Dx: Admission Diagnosis/Problem Admission Diagnosis/Problem hemorrhage Source of Information: Patient History Limitations: Reports: No Limitations - History of Present Illness Initial Comments - Free Text/Narative: Patient is a 27 y/o who presented today for concerns of on and off bleeding after her delivery on 01/20. Delivery was after IOL for a 25 week demise of her baby girl. Had an US done this AM which showed a possible area of POC in the cervix. When seen in clinic this was noted on exam and so removed in office. Afterwards patient had pronounced bleeding and syncopal episode necessitating transfer via ambulance to hospital in preparation for emergent D&C. Lower Pelvic Pain Score (Numeric/FACES): 1 - Related Data Allergies/Adverse Reactions: Allergies Allergy/AdvReac Type Severity Reaction Status Date / Time latex Allergy Swollen Verified 02/09/18 20:23 Eyes Home Medications: Home Meds PNV95/Ferrous Fumarate/FA [ Tablet] 1 tab PO DAILY 02/27/17 [History] Ibuprofen [Motrin] 600 mg PO Q6H PRN tablet 01/20/18 [Rx] Acetaminophen/oxyCODONE [Percocet 325-5 MG] 1 - 2 tab PO Q4H PRN #10 tablet [Rx] Past Medical History [employer] History: Reports: PID, Spontaneous : 2 Para: 0 - Past Surgical History HEENT Surgical History: Reports: Oral Surgery, Tonsillectomy Social & Family History - Family History Family Medical History: Noncontributory - Tobacco Use Smoking Status *Q: Never Smoker - Caffeine Use Caffeine Use: Reports: Coffee - Alcohol Use Alcohol Use History: No - Recreational Drug Use Recreational Drug Use: No - Living Situation & Occupation Living situation: Reports: Occupation: Employed H&P Review of Systems - Review of Systems: Review Of Systems: See Below General: Reports: Fatigue Pulmonary: Reports: No Symptoms Cardiovascular: Reports: No Symptoms Gastrointestinal: Reports: Abdominal Pain Genitourinary: Reports: Other (heavy bleeding) Musculoskeletal: Reports: No Symptoms Psychiatric: Reports: No Symptoms Neurological: Reports: No Symptoms Exam - Exam Exam: See Below - Exam General: Alert, Oriented Lungs: Clear to Auscultation, Normal Respiratory Effort Cardiovascular: Regular Rate, Regular Rhythm GI/Abdominal Exam: Soft, Tender (Female) Exam: Products of Conception, Vaginal Bleeding Extremities: Normal Inspection Skin: Warm, Dry, Intact - Patient Data Result Diagrams: 02/14/18 05:20 - Problem List (1) bleeding SNOMED Code(s): 10482662 ICD Code: O72.1 - OTHER IMMEDIATE HEMORRHAGE Status: Acute Qualifiers: hemorrhage type: delayed hemorrhage Qualified Code(s) : O72.2 - Delayed and secondary hemorrhage Problem List Initiated/Reviewed/Updated: Yes Orders Last 24hrs: Active Orders 24 hr Category Date Time Status Patient Status [ADT] Routine ADT 02/13/18 09:44 Ordered Verify Patient Consent Obtain [RC] PER UNIT ROUTINE Care 02/13/18 09:44 Ordered Nothing Per Oral Diet [DIET] Diet 02/13/18 Breakfast Ordered CBC WITH AUTO DIFF [HEME] Routine Lab 02/13/18 09:43 Ordered FIBRINOGEN [COAG] Routine Lab 02/13/18 09:43 Ordered INR,PT,PROTHROMBIN TIME [COAG] Routine Lab 02/13/18 09:43 Ordered PTT,PARTIAL THROMBOPLSTIN TIME [COAG] Routine Lab 02/13/18 09:43 Ordered TYPE AND SCREEN [BBK] Routine Lab 02/13/18 09:43 Ordered ceFAZolin [Ancef] 2 gm Med 02/13/18 09:43 Ordered Premix Bag 1 bag IV ONETIME Schedule Procedure [COMM] Stat Oth 02/13/18 09:43 Ordered Sequential Compression Device [OM.PC] Per Unit Routine Oth 02/13/18 09:44 Ordered Resuscitation Status Routine Resus Stat 02/13/18 09:43 Ordered Assessment/Plan Comment:: 27 y/o who is s/p on 01/20 after 25 wk IOL now with hemorrhage/retained POC. * CBC, T&S, PT, PTT, Fibrinogen * Plan for emergent D&C. Anesthesia and PACU aware * Consent reviewed and signed
[2018-02-13] MEDS ORDERED: Methylergonovine 0.2 MG/1 ML Amp ONE (10:13)
[2018-02-13] MEDS ORDERED: Lactated Ringers 1,000 ML ONE ×4 (10:16→10:37)
[2018-02-13] MEDS ORDERED: Neostigmine Methylsulfate 1 MG/ML 5 ML Syringe ONE (10:52)
[2018-02-13] MEDS ORDERED: fentaNYL 100 MCG/2 ML SDV IVPUSH PRN (11:14)
[2018-02-13] MEDS ORDERED: HYDROmorphone 0.5 MG/0.5 ML Syringe IVPUSH PRN (11:14)
--- NOTE | 2018-02-13 11:15 | PCM.POSTAN ---
POST ANESTHESIA ASSESSMENT - MENTAL STATUS Mental Status: Alert, Oriented - VITAL SIGNS Pulse Rate: 94 SaO2: 94 Resp Rate: 13 Blood Pressure: 106/71 Temperature: 36.6 C - RESPIRATORY Respiratory Status: Respiratory Rate WNL, Airway Patent, O2 Saturation Stable, Supplemental Oxygen - CARDIOVASCULAR CV Status: Pulse Rate WNL, Blood Pressure Stable - GASTROINTESTINAL GI Status: No Symptoms - PAIN Pain Score: 2 - POST OP HYDRATION Hydration Status: Adequate & Stable - OBSERVATIONS Free Text/Narrative:: no anesthesia complications noted
--- NOTE | 2018-02-13 11:17 | PCM.PREANE ---
Preanesthetic Assessment - Anesthesia/Transfusion/Family Hx Anesthesia History: Prior Anesthesia Without Reaction Family History of Anesthesia Reaction: No Transfusion History: No Prior Transfusion(s) - Review of Systems General: Weakness, Fatigue, Malaise Pulmonary: No Symptoms Cardiovascular: No Symptoms Gastrointestinal: No Symptoms Neurological: No Symptoms Other: Reports: None - Physical Assessment NPO Status Date: 02/12/18 NPO Status Time: 00:00 Pulse: 94 O2 Sat by Pulse Oximetry: 94 Respiratory Rate: 13 Blood Pressure: 106/71 Temperature: 36.6 C Vital Signs: Last Vital Signs Temp 36.6 C 02/13/18 11:15 Pulse 94 02/13/18 11:15 Resp 13 02/13/18 11:15 BP 106/71 02/13/18 11:15 Pulse Ox 94 L 02/13/18 11:15 ASA Class: 2E Mental Status: Alert & Oriented x3 Airway Class: Mallampati = 1 Dentition: Reports: Normal Dentition Thyro-Mental Finger Breadths: 3 Mouth Opening Finger Breadths: 3 ROM/Head Extension: Full Lungs: Clear to Auscultation, Normal Respiratory Effort Cardiovascular: Regular Rate, Regular Rhythm - Lab Values: Laboratory Last Values WBC 5.28 K/mm3 (3.98-10.04) 02/13/18 10:05 RBC 2.57 M/mm3 (3.98-5.22) L 02/13/18 10:05 Hgb 7.7 gm/L (11.2-15.7) L 02/13/18 10:05 Hct 23.8 % (34.1-44.9) L 02/13/18 10:05 MCV 92.6 fl (79.4-94.8) 02/13/18 10:05 MCH 30.0 pg (25.6-32.2) 02/13/18 10:05 MCHC 32.4 g/dl (32.2-35.5) 02/13/18 10:05 RDW Std Deviation 40.4 fL (36.4-46.3) 02/13/18 10:05 Plt Count 172 K/mm3 (182-369) L 02/13/18 10:05 MPV 10.4 fl (9.4-12.3) 02/13/18 10:05 Neut % (Auto) 64.4 % (34.0-71.1) 02/13/18 10:05 Lymph % (Auto) 27.1 % (19.3-51.7) 02/13/18 10:05 [place] % (Auto) 5.1 % (4.7-12.5) 02/13/18 10:05 Eos % (Auto) 2.8 (0.7-5.8) 02/13/18 10:05 Baso % (Auto) 0.6 % (0.1-1.2) 02/13/18 10:05 Neut # (Auto) 3.40 K/mm3 (1.56-6.13) 02/13/18 10:05 Lymph # (Auto) 1.43 K/mm3 (1.18-3.74) 02/13/18 10:05 [place] # (Auto) 0.27 K/mm3 (0.24-0.36) 02/13/18 10:05 Eos # (Auto) 0.15 K/mm3 (0.04-0.36) 02/13/18 10:05 Baso # (Auto) 0.03 K/mm3 (0.01-0.08) 02/13/18 10:05 Manual Slide Review Abnormal smear 02/13/18 10:05 PT 11.0 SECONDS (9.5-12.1) 02/13/18 10:05 INR 1.01 02/13/18 10:05 APTT 25 SECONDS (24-31) 02/13/18 10:05 Fibrinogen 217 mg/dL (187-446) 02/13/18 10:05 Blood Type O POSITIVE 02/13/18 10:05 Gel Antibody Screen Negative 02/13/18 10:05 Crossmatch See Detail 02/13/18 10:05 - Allergies Allergies/Adverse Reactions: Allergies Allergy/AdvReac Type Severity Reaction Status Date / Time latex Allergy Swollen Verified 02/09/18 20:23 Eyes - Anesthesia Plan Pre-Op Medication Ordered: None - Acknowledgements Anesthesia Type Planned: General Anesthesia Pt an Appropriate Candidate for the Planned Anesthesia: Yes Alternatives and Risks of Anesthesia Discussed w Pt/Guardian: Yes Pt/Guardian Understands and Agrees with Anesthesia Plan: Yes PreAnesthesia Questionnaire [employer] History: Reports: PID, , Spontaneous - Past Surgical History HEENT Surgical History: Reports: Oral Surgery, Tonsillectomy - HOME MEDS Home Medications: Home Meds PNV95/Ferrous Fumarate/FA [ Tablet] 1 tab PO DAILY 02/27/17 [History] Ibuprofen [Motrin] 600 mg PO Q6H PRN tablet 01/20/18 [Rx] - CURRENT (IN HOUSE) MEDS Current Meds: Current Medications Fentanyl (Sublimaze) 50 mcg IVPUSH Q5M PRN PRN Reason: Pain Hydromorphone HCl (Dilaudid) 0.5 mg IVPUSH ONETIME PRN PRN Reason: Pain Discontinued Medications Fentanyl (Sublimaze) Confirm Administered Dose 100 mcg .ROUTE .STK-MED ONE Stop: 02/13/18 09:15 Glycopyrrolate () Confirm Administered Dose 1 mg .ROUTE .STK-MED ONE Stop: 02/13/18 10:53 Lidocaine HCl (Xylocaine-Mpf 1%) Confirm Administered Dose 4 mls @ as directed .ROUTE .STK-MED ONE Stop: 02/13/18 09:15 Cefazolin Sodium/Dextrose 2 gm (/ Premix) 50 mls @ 100 mls/hr IV ONETIME ONE Stop: 02/13/18 10:12 Lactated Ringer's (Ringers, Lactated) Confirm Administered Dose 1,000 mls @ as directed .ROUTE .STK-MED ONE Stop: 02/13/18 10:17 Lactated Ringer's (Ringers, Lactated) Confirm Administered Dose 1,000 mls @ as directed .ROUTE .STK-MED ONE Stop: 02/13/18 10:17 Lactated Ringer's (Ringers, Lactated) Confirm Administered Dose 1,000 mls @ as directed .ROUTE .STK-MED ONE Stop: 02/13/18 10:26 Lactated Ringer's (Ringers, Lactated) Confirm Administered Dose 1,000 mls @ as directed .ROUTE .STK-MED ONE Stop: 02/13/18 10:38 Methylergonovine Maleate (Methergine) Confirm Administered Dose 0.2 mg .ROUTE .STK-MED ONE Stop: 02/13/18 10:14 Midazolam HCl (Versed 1 Mg/Ml) Confirm Administered Dose 2 mg .ROUTE .STK-MED ONE Stop: 02/13/18 09:15 Neostigmine Methylsulfate (Neostigmine) Confirm Administered Dose 5 mg .ROUTE .STK-MED ONE Stop: 02/13/18 10:53 Ondansetron HCl (Zofran) Confirm Administered Dose 4 mg .ROUTE .STK-MED ONE Stop: 02/13/18 09:15 Propofol (Diprivan 20 Ml) Confirm Administered Dose 200 mg .ROUTE .STK-MED ONE Stop: 02/13/18 09:15 Rocuronium [place] (Zemuron) Confirm Administered Dose 50 mg .ROUTE .STK-MED ONE Stop: 02/13/18 09:15
--- NOTE | 2018-02-13 11:20 | PCM.OPNOTE ---
- General Post-Op/Procedure Note Date of Surgery/Procedure: 02/13/18 Operative Procedure(s): Suction D&C Findings: Large amount of bleeding present on exam. Mobile, anteverted uterus. No appreciable adnexal enlargement. Pre Op Diagnosis: Retained products of conception - hemorrhage Post-Op Diagnosis: Same Anesthesia Technique: General ET Tube Primary Surgeon: Debbie Ayala Anesthesia Provider: Edwin Gustafson Pathology: Uterine contents sent to pathology Fluid Replacement, Intraop: 3,300 EBL in mLs: 800 Complications: None Condition: Good Free Text/Narrative:: The patient was brought to the OR where anesthesia was induced without difficulty. She was placed in the dorsal lithotomy position and prepped and drapped in the usual sterile fashion. A bi-valve speculum was placed in the vagina and the cervix was then visualized. An allis clamp was placed on the anterior lip of the cervix. Next the cervix was dilated to a #9 hegar dilator under ultrasound guidance. A size 9-mm cannula was then inserted into the uterus up to the level of the fundus. Next an electric vacuum aspiration was performed by slowly rotating the cannula and performing a gentle in and out motion. Aspiration of uterine contents was performed with abdominal ultrasound guidance. This procedure was repeated until no further return of tissue noted and ultrasound demonstrated a thin uterine stripe. Unfortunately even when the uterus was empty there was still quite pronounced bleeding noted on exam. Due to this finding decision made to insert a severino balloon into the uterine cavity and inflate with 30 cc of fluid to tamponade uterus. This was left in place for about 10 minutes. Attempt made to deflate balloon, but bleeding again increased with this action. Balloon inflated to a total of 25 cc with again resolution of bleeding. Decision made to leave in place and to deflate slowly on the floor. The Allis clamp was removed from the cervix and the site appeared hemostatic. A severino catheter was also inserted into the bladder. Patient was awoken and taken to the PACU. 1 unit of PRBC hung in PACU.
[2018-02-13] MEDS ORDERED: Haloperidol Lactate 5 MG/ML SDV IVPUSH ONE (11:25)
[2018-02-13] MEDS ORDERED: Ondansetron 4 MG/2 ML SDV ONE (12:38)
--- NOTE | 2018-02-13 12:40 | PCM.SN ---
- Free Text/Narrative Note: 1240 Patient just arrived to floor. Doing well with minimal bleeding. 5 cc taken out of uterine balloon. Now down to 20 cc remaining. Will remove additional fluid later this PM. Debbie Ayala MD
[2018-02-13] MEDS ORDERED: Ondansetron 4 MG/2 ML SDV IVPUSH PRN (12:41)
[2018-02-13] MEDS ORDERED: Lactated Ringers 1,000 ML IV SCH (12:41)
[2018-02-13] MEDS ORDERED: Acetaminophen/oxyCODONE 325-5 MG Tab PO PRN (12:41)
[2018-02-13] MEDS ORDERED: Morphine 4 MG/ML Syringe IVPUSH PRN (14:18)
[2018-02-13] MEDS: Methylergonovine 0.2 MG/1 ML Amp IM SCH ×3 (14:40→22:46)
[2018-02-13] MEDS ORDERED: ceFAZolin 1 GM in Premix Bag 1 BAG IV SCH (15:30)
[2018-02-13] MEDS ORDERED: Clindamycin Phosphate 900 MG in Sodium Chloride 0.9% 100 ML IV ONE (17:50)
[2018-02-13] MEDS ORDERED: Gentamicin 360 MG in Sodium Chloride 0.9% 100 ML IV ONE (17:50)
--- NOTE | 2018-02-13 17:59 | PCM.SN ---
- Free Text/Narrative Note: 9108 Patient doing well. Minimal bleeding and tolerating bulb well. 10 cc of saline taken out of bulb, only 10 cc remaining. No increase in bleeding after this step. Will try to remove completely later tonight. Did have an elevated temperature of 100.5. Will switch antibiotics from Ancef to Clindamycin to Gentamicin. Will continue in house along with scheduled methergine. Debbie Ayala MD
[2018-02-13] MEDS ORDERED: Sodium Chloride 0.9% 10 ML Syringe FLUSH PRN (19:49)
--- NOTE | 2018-02-13 19:51 | PCM.SN ---
- Free Text/Narrative Note: 194 Last 10 cc of uterine balloon deflated and removed. Bleeding seems minimal. Will give last dose of methergine at 2230. Continue antibiotics. SLIV. Repeat CBC in AM Debbie Ayala MD
[2018-02-14] MEDS: Clindamycin Phosphate 900 MG in Sodium Chloride 0.9% 100 ML IV SCH ×2 (02:21→10:00)
--- NOTE | 2018-02-14 07:03 | PCM.SURGPN ---
- General Info Date of Service: 02/14/18 POD#: 1 Functional Status: Reports: Pain Controlled, Tolerating Diet, Ambulating, Urinating - Review of Systems General: Reports: No Symptoms Pulmonary: Reports: No Symptoms Cardiovascular: Reports: No Symptoms Gastrointestinal: Reports: No Symptoms Genitourinary: Reports: No Symptoms Musculoskeletal: Reports: No Symptoms - Patient Data Vitals - Most Recent: Last Vital Signs Temp 37.2 C 02/14/18 03:31 Pulse 77 02/14/18 03:31 Resp 15 02/14/18 03:31 BP 91/49 L 02/14/18 03:31 Pulse Ox 97 02/14/18 03:31 Weight - Most Recent: 73.028 kg I&O - Last 24 Hours: Intake & Output 02/13/18 02/14/18 02/14/18 22:59 06:59 14:59 Intake Total 2300 Output Total 1925 250 Balance 375 -250 Lab Results Last 24 Hrs: Laboratory Results - last 24 hr 02/13/18 02/13/18 02/13/18 Range/Units 10:05 10:05 10:05 WBC 5.28 (3.98-10.04) K/mm3 RBC 2.57 L (3.98-5.22) M/mm3 Hgb 7.7 L (11.2-15.7) gm/L Hct 23.8 L (34.1-44.9) % MCV 92.6 (79.4-94.8) fl MCH 30.0 (25.6-32.2) pg MCHC 32.4 (32.2-35.5) g/dl RDW Std Deviation 40.4 (36.4-46.3) fL Plt Count 172 L (182-369) K/mm3 MPV 10.4 (9.4-12.3) fl Neut % (Auto) 64.4 (34.0-71.1) % Lymph % (Auto) 27.1 (19.3-51.7) % [place] % (Auto) 5.1 (4.7-12.5) % Eos % (Auto) 2.8 (0.7-5.8) Baso % (Auto) 0.6 (0.1-1.2) % Neut # (Auto) 3.40 (1.56-6.13) K/mm3 Lymph # (Auto) 1.43 (1.18-3.74) K/mm3 [place] # (Auto) 0.27 (0.24-0.36) K/mm3 Eos # (Auto) 0.15 (0.04-0.36) K/mm3 Baso # (Auto) 0.03 (0.01-0.08) K/mm3 Manual Slide Review Abnormal smear PT 11.0 (9.5-12.1) SECONDS INR 1.01 APTT 25 (24-31) SECONDS Fibrinogen 217 (187-446) mg/dL Blood Type O POSITIVE Gel Antibody Screen Negative Crossmatch See Detail 02/13/18 02/14/18 Range/Units 16:13 05:20 WBC 17.91 H 9.21 (3.98-10.04) K/mm3 RBC 3.31 L 2.79 L (3.98-5.22) M/mm3 Hgb 10.1 L 8.5 L (11.2-15.7) gm/L Hct 30.1 L 25.8 L (34.1-44.9) % MCV 90.9 92.5 (79.4-94.8) fl MCH 30.5 30.5 (25.6-32.2) pg MCHC 33.6 32.9 (32.2-35.5) g/dl RDW Std Deviation 41.9 43.1 (36.4-46.3) fL Plt Count 205 187 (182-369) K/mm3 MPV 10.7 11.0 (9.4-12.3) fl Neut % (Auto) 92.7 H (34.0-71.1) % Lymph % (Auto) 5.6 L (19.3-51.7) % [place] % (Auto) 1.3 L (4.7-12.5) % Eos % (Auto) 0.1 L (0.7-5.8) Baso % (Auto) 0.1 (0.1-1.2) % Neut # (Auto) 16.61 H (1.56-6.13) K/mm3 Lymph # (Auto) 1.01 L (1.18-3.74) K/mm3 [place] # (Auto) 0.23 L (0.24-0.36) K/mm3 Eos # (Auto) 0.01 L (0.04-0.36) K/mm3 Baso # (Auto) 0.02 (0.01-0.08) K/mm3 Manual Slide Review Normal smear PT (9.5-12.1) SECONDS INR APTT (24-31) SECONDS Fibrinogen (187-446) mg/dL Blood Type Gel Antibody Screen Crossmatch Med Orders - Current: Current Medications Clindamycin Phosphate 900 mg/ (Sodium Chloride) 106 mls @ 100 mls/hr IV Q8H MARTELL Stop: 02/14/18 11:04 Last Admin: 02/14/18 02:21 Dose: 100 mls/hr Morphine Sulfate (Morphine) 4 mg IVPUSH Q2H PRN PRN Reason: pain/cramping Last Admin: 02/13/18 14:41 Dose: 4 mg Ondansetron HCl (Zofran) 4 mg IVPUSH Q4H PRN PRN Reason: Nausea/Vomiting Last Admin: 02/13/18 12:40 Dose: 4 mg Oxycodone/Acetaminophen (Percocet 325-5 Mg) 2 tab PO Q4H PRN PRN Reason: Pain (moderate 4-6) Sodium Chloride (Saline Flush) 10 ml FLUSH ASDIRECTED PRN PRN Reason: Keep Vein Open Discontinued Medications Fentanyl (Sublimaze) Confirm Administered Dose 100 mcg .ROUTE .STK-MED ONE Stop: 02/13/18 09:15 Fentanyl (Sublimaze) 50 mcg IVPUSH Q5M PRN PRN Reason: Pain Last Admin: 02/13/18 11:22 Dose: 50 mcg Glycopyrrolate () Confirm Administered Dose 1 mg .ROUTE .STK-MED ONE Stop: 02/13/18 10:53 Haloperidol Lactate (Haldol) 1 mg IVPUSH ONETIME ONE Stop: 02/13/18 11:26 Last Admin: 02/13/18 11:36 Dose: 1 mg Hydromorphone HCl (Dilaudid) 0.5 mg IVPUSH ONETIME PRN PRN Reason: Pain Stop: 02/13/18 11:15 Lidocaine HCl (Xylocaine-Mpf 1%) Confirm Administered Dose 4 mls @ as directed .ROUTE .STK-MED ONE Stop: 02/13/18 09:15 Cefazolin Sodium/Dextrose 2 gm (/ Premix) 50 mls @ 100 mls/hr IV ONETIME ONE Stop: 02/13/18 10:12 Last Admin: 02/13/18 13:41 Dose: Not Given Lactated Ringer's (Ringers, Lactated) Confirm Administered Dose 1,000 mls @ as directed .ROUTE .STK-MED ONE Stop: 02/13/18 10:17 Lactated Ringer's (Ringers, Lactated) Confirm Administered Dose 1,000 mls @ as directed .ROUTE .STK-MED ONE Stop: 02/13/18 10:17 Lactated Ringer's (Ringers, Lactated) Confirm Administered Dose 1,000 mls @ as directed .ROUTE .STK-MED ONE Stop: 02/13/18 10:26 Lactated Ringer's (Ringers, Lactated) Confirm Administered Dose 1,000 mls @ as directed .ROUTE .[facility]-MED ONE Stop: 02/13/18 10:38 Cefazolin Sodium/Dextrose 1 gm (/ Premix) 50 mls @ 100 mls/hr IV Q6H [facility] Last Admin: 02/13/18 15:37 Dose: 100 mls/hr Lactated Ringer's (Ringers, Lactated) 1,000 mls @ 50 mls/hr IV ASDIRECTED [facility] Last Admin: 02/13/18 13:02 Dose: 50 mls/hr Clindamycin Phosphate 900 mg/ (Sodium Chloride) 106 mls @ 100 mls/hr IV ONETIME ONE Stop: 02/13/18 18:53 Last Admin: 02/13/18 18:14 Dose: 100 mls/hr Gentamicin Sulfate 360 mg/ (Sodium Chloride) 109 mls @ 199.796 mls/hr IV ONETIME ONE Stop: 02/13/18 18:22 Last Admin: 02/13/18 19:18 Dose: 199.796 mls/hr Methylergonovine Maleate (Methergine) Confirm Administered Dose 0.2 mg .ROUTE .STK-MED ONE Stop: 02/13/18 10:14 Last Admin: 02/13/18 10:17 Dose: 0.2 mg Methylergonovine Maleate (Methergine) 0.2 mg IM Q4H [facility] Stop: 02/13/18 23:00 Last Admin: 02/13/18 22:46 Dose: 0.2 mg Midazolam HCl (Versed 1 Mg/Ml) Confirm Administered Dose 2 mg .ROUTE .STK-MED ONE Stop: 02/13/18 09:15 Neostigmine Methylsulfate (Neostigmine) Confirm Administered Dose 5 mg .ROUTE .STK-MED ONE Stop: 02/13/18 10:53 Ondansetron HCl (Zofran) Confirm Administered Dose 4 mg .ROUTE .STK-MED ONE Stop: 02/13/18 09:15 Ondansetron HCl (Zofran) Confirm Administered Dose 4 mg .ROUTE .STK-MED ONE Stop: 02/13/18 12:39 Last Admin: 02/13/18 13:03 Dose: Not Given Propofol (Diprivan 20 Ml) Confirm Administered Dose 200 mg .ROUTE .STK-MED ONE Stop: 02/13/18 09:15 Rocuronium [place] (Zemuron) Confirm Administered Dose 50 mg .ROUTE .STK-MED ONE Stop: 02/13/18 09:15 - Exam General: Alert, Oriented, Cooperative Lungs: Clear to Auscultation, Normal Respiratory Effort Cardiovascular: Regular Rate, Regular Rhythm GI/Abdominal Exam: Soft, Non-Tender Extremities: Normal Inspection Skin: Warm, Dry, Intact Physical Findings Comment:: Minimal bleeding on perineal pad - Problem List & Annotations (1) bleeding SNOMED Code(s): 25379448 Code(s): O72.1 - OTHER IMMEDIATE HEMORRHAGE Status: Acute Qualifiers: hemorrhage type: delayed hemorrhage Qualified Code(s) : O72.2 - Delayed and secondary hemorrhage (2) S/P D&C (status post dilation and curettage) SNOMED Code(s): 823073712, 564183812 Code(s): Z98.890 - OTHER SPECIFIED POSTPROCEDURAL STATES Status: Acute - Problem List Review Problem List Initiated/Reviewed/Updated: Yes - My Orders Last 24 Hours: Active Orders 24 hr Category Date Time Status Up With Assistance [RC] PER UNIT ROUTINE Care 02/13/18 12:41 Active Verify Patient Consent Obtain [RC] PER UNIT ROUTINE Care 02/13/18 09:44 Inactive Vital Signs [RC] Q4HR Care 02/13/18 12:41 Active Regular Diet [DIET] Diet 06/25/18 Dinner Active RED BLOOD CELLS LP [BBK] Routine Lab 02/13/18 10:05 Results TYPE AND SCREEN [BBK] Routine Lab 02/13/18 10:05 Results Acetaminophen/oxyCODONE [Percocet 325-5 MG] Med 02/13/18 12:41 Active 2 tab PO Q4H PRN Clindamycin Phosphate [Cleocin] 900 mg Med 02/14/18 02:00 Active Sodium Chloride 0.9% [Normal Saline] 100 ml IV Q8H Morphine Med 02/13/18 14:18 Active 4 mg IVPUSH Q2H PRN Ondansetron [Zofran] Med 02/13/18 12:41 Active 4 mg IVPUSH Q4H PRN Sodium Chloride 0.9% [Saline Flush] Med 02/13/18 19:49 Active 10 ml FLUSH ASDIRECTED PRN Convert IV to Saline Lock [OM.PC] Routine Oth 02/13/18 19:49 Ordered Schedule Procedure [COMM] Stat Oth 02/13/18 09:43 Ordered Sequential Compression Device [OM.PC] Per Unit Routine Oth 02/13/18 12:41 Ordered Transfuse RBC [Transfuse Red Blood Cells] [COMM] Stat Oth 02/13/18 10:17 Ordered Resuscitation Status Routine Resus Stat 02/13/18 09:43 Ordered Medication Orders Clindamycin Phosphate 900 mg/ (Sodium Chloride) 106 mls @ 100 mls/hr IV Q8H MARTELL Stop: 02/14/18 11:04 Last Admin: 02/14/18 02:21 Dose: 100 mls/hr Morphine Sulfate (Morphine) 4 mg IVPUSH Q2H PRN PRN Reason: pain/cramping Last Admin: 02/13/18 14:41 Dose: 4 mg Ondansetron HCl (Zofran) 4 mg IVPUSH Q4H PRN PRN Reason: Nausea/Vomiting Last Admin: 02/13/18 12:40 Dose: 4 mg Oxycodone/Acetaminophen (Percocet 325-5 Mg) 2 tab PO Q4H PRN PRN Reason: Pain (moderate 4-6) Sodium Chloride (Saline Flush) 10 ml FLUSH ASDIRECTED PRN PRN Reason: Keep Vein Open - Assessment Assessment (Free Text/Narrative):: POD#1 from emergent D&C for retained POC/delayed hemorrhage - Plan Plan (Free Text/Narrative):: * Has been afebrile since severino balloon out of uterus. S/p 1 dose of gentamicin. Will give last dose of Clindamycin at 1000. * Will plan on Discharge to home later today * Follow up in clinic in 1-2 weeks
--- NOTE | 2018-02-14 09:32 | PCM48HPAN ---
Post Anesthesia Note - EVALUATION WITHIN 48HRS OF ANESTHETIC Vital Signs in Normal Range: Yes Patient Participated in Evaluation: Yes Respiratory Function Stable: Yes Airway Patent: Yes Cardiovascular Function Stable: Yes Hydration Status Stable: Yes Pain Control Satisfactory: Yes Nausea and Vomiting Control Satisfactory: Yes Mental Status Recovered: Yes
[2018-02-14 13:41] VITALS: BP 99/39
--- NOTE | 2018-02-15 15:16 | PCM.DCSUM1 ---
Discharge Summary - Discharge Data Discharge Date: 02/14/18 Discharge Disposition: Home, Self-Care 01 Condition: Good - Discharge Diagnosis/Problem(s) (1) bleeding SNOMED Code(s): 55371826 ICD Code: O72.1 - OTHER IMMEDIATE HEMORRHAGE Status: Acute Qualifiers: hemorrhage type: delayed hemorrhage Qualified Code(s) : O72.2 - Delayed and secondary hemorrhage (2) S/P D&C (status post dilation and curettage) SNOMED Code(s): 247384683, 223400407 ICD Code: Z98.890 - OTHER SPECIFIED POSTPROCEDURAL STATES Status: Acute - Patient Summary/Data Operative Procedure(s) Performed: Suction D&C Complications: None Consults: None Recommended Follow-up Testing/Procedures: Follow up in 1-2 weeks for re-check Hospital Course: 27 y/o s/p on 01/20 after IOL for 25 wk demise who presented to office on 02/13 after several days of episodic heavy bleeding. US with concerns for retained POC which were seen on office exam. Removed in clinic with resultant marked hemorrhage. Brought emergency to hospital via ambulance transfer were D&C done. Patient with continued bleeding in OR and so severino balloon placed in the uterus to aid in tamponade. She was given 1 unit PRBC in OR. Then brought to the floor where balloon was deflated slowly over the course of the day. Antibiotics continued prophylactically, but did have one fever about 2 hours prior to catheter removal. At that time Gent/Clinda started for endometritis which were continued for 24 hours. She was afebrile and with minimal bleeding once balloon removed. She was discharged home on POD# 1 - Patient Instructions Diet: Regular Diet as Tolerated Activity: As Tolerated Activity, Other: Pelvic Rest for 2 weeks Driving: May Drive Today Showering/Bathing: May Shower Showering/Bathing, Other: May Bathe Notify Provider of: Fever, Increased Pain, Swelling and Redness, Drainage, Nausea and/or Vomiting - Discharge Plan Prescriptions/Med Rec: Acetaminophen/oxyCODONE [Percocet 325-5 MG] 1 - 2 tab PO Q4H PRN #10 tablet PRN Reason: Pain (Moderate 4-6) Home Medications: Home Meds PNV95/Ferrous Fumarate/FA [ Tablet] 1 tab PO DAILY 02/27/17 [History] Ibuprofen [Motrin] 600 mg PO Q6H PRN tablet 01/20/18 [Rx] Acetaminophen/oxyCODONE [Percocet 325-5 MG] 1 - 2 tab PO Q4H PRN #10 tablet [Rx] Patient Handouts: Abnormal Uterine Bleeding, [id number] Referrals: Debbie Ayala MD [Primary Care Provider] - (1-2 weeks for post op check ) - Discharge Summary/Plan Comment DC Time >30 min.: No - Patient Data Vitals - Most Recent: Last Vital Signs Temp 37.1 C 02/14/18 09:08 Pulse 63 02/14/18 09:08 Resp 14 02/14/18 09:08 BP 99/39 L 02/14/18 09:08 Pulse Ox 96 02/14/18 09:08 Weight - Most Recent: 73.028 kg I&O - Last 24 hours: Intake & Output 02/15/18 02/15/18 02/15/18 06:59 14:59 22:59 Intake Total 3300 Balance 3300 Med Orders - Current: Current Medications Discontinued Medications Fentanyl (Sublimaze) Confirm Administered Dose 100 mcg .ROUTE .STK-MED ONE Stop: 02/13/18 09:15 Fentanyl (Sublimaze) 50 mcg IVPUSH Q5M PRN PRN Reason: Pain Last Admin: 02/13/18 11:22 Dose: 50 mcg Glycopyrrolate () Confirm Administered Dose 1 mg .ROUTE .STK-MED ONE Stop: 02/13/18 10:53 Haloperidol Lactate (Haldol) 1 mg IVPUSH ONETIME ONE Stop: 02/13/18 11:26 Last Admin: 02/13/18 11:36 Dose: 1 mg Hydromorphone HCl (Dilaudid) 0.5 mg IVPUSH ONETIME PRN PRN Reason: Pain Stop: 02/13/18 11:15 Lidocaine HCl (Xylocaine-Mpf 1%) Confirm Administered Dose 4 mls @ as directed .ROUTE .STK-MED ONE Stop: 02/13/18 09:15 Cefazolin Sodium/Dextrose 2 gm (/ Premix) 50 mls @ 100 mls/hr IV ONETIME ONE Stop: 02/13/18 10:12 Last Admin: 02/13/18 13:41 Dose: Not Given Lactated Ringer's (Ringers, Lactated) Confirm Administered Dose 1,000 mls @ as directed .ROUTE .[facility] ONE Stop: 02/13/18 10:17 Lactated Ringer's (Ringers, Lactated) Confirm Administered Dose 1,000 mls @ as directed .ROUTE .[facility] ONE Stop: 02/13/18 10:17 Lactated Ringer's (Ringers, Lactated) Confirm Administered Dose 1,000 mls @ as directed .ROUTE .[facility] ONE Stop: 02/13/18 10:26 Lactated Ringer's (Ringers, Lactated) Confirm Administered Dose 1,000 mls @ as directed .ROUTE .[facility] ONE Stop: 02/13/18 10:38 Cefazolin Sodium/Dextrose 1 gm (/ Premix) 50 mls @ 100 mls/hr IV Q6H [facility] Last Admin: 02/13/18 15:37 Dose: 100 mls/hr Lactated Ringer's (Ringers, Lactated) 1,000 mls @ 50 mls/hr IV ASDIRECTED [facility] Last Admin: 02/13/18 13:02 Dose: 50 mls/hr Clindamycin Phosphate 900 mg/ (Sodium Chloride) 106 mls @ 100 mls/hr IV ONETIME ONE Stop: 02/13/18 18:53 Last Admin: 02/13/18 18:14 Dose: 100 mls/hr Gentamicin Sulfate 360 mg/ (Sodium Chloride) 109 mls @ 199.796 mls/hr IV ONETIME ONE Stop: 02/13/18 18:22 Last Admin: 02/13/18 19:18 Dose: 199.796 mls/hr Clindamycin Phosphate 900 mg/ (Sodium Chloride) 106 mls @ 100 mls/hr IV Q8H [facility] Stop: 02/14/18 11:04 Last Admin: 02/14/18 10:00 Dose: 100 mls/hr Methylergonovine Maleate (Methergine) Confirm Administered Dose 0.2 mg .ROUTE .[facility] ONE Stop: 02/13/18 10:14 Last Admin: 02/13/18 10:17 Dose: 0.2 mg Methylergonovine Maleate (Methergine) 0.2 mg IM Q4H [facility] Stop: 02/13/18 23:00 Last Admin: 02/13/18 22:46 Dose: 0.2 mg Midazolam HCl (Versed 1 Mg/Ml) Confirm Administered Dose 2 mg .ROUTE .STK-MED ONE Stop: 02/13/18 09:15 Morphine Sulfate (Morphine) 4 mg IVPUSH Q2H PRN PRN Reason: pain/cramping Last Admin: 02/13/18 14:41 Dose: 4 mg Neostigmine Methylsulfate (Neostigmine) Confirm Administered Dose 5 mg .ROUTE .STK-MED ONE Stop: 02/13/18 10:53 Ondansetron HCl (Zofran) Confirm Administered Dose 4 mg .ROUTE .STK-MED ONE Stop: 02/13/18 09:15 Ondansetron HCl (Zofran) Confirm Administered Dose 4 mg .ROUTE .STK-MED ONE Stop: 02/13/18 12:39 Last Admin: 02/13/18 13:03 Dose: Not Given Ondansetron HCl (Zofran) 4 mg IVPUSH Q4H PRN PRN Reason: Nausea/Vomiting Last Admin: 02/13/18 12:40 Dose: 4 mg Oxycodone/Acetaminophen (Percocet 325-5 Mg) 2 tab PO Q4H PRN PRN Reason: Pain (moderate 4-6) Propofol (Diprivan 20 Ml) Confirm Administered Dose 200 mg .ROUTE .STK-MED ONE Stop: 02/13/18 09:15 Rocuronium [place] (Zemuron) Confirm Administered Dose 50 mg .ROUTE .STK-MED ONE Stop: 02/13/18 09:15 Sodium Chloride (Saline Flush) 10 ml FLUSH ASDIRECTED PRN PRN Reason: Keep Vein Open
== END 2018-02-14 12:40 | disposition home or self-care (01) | DRG 544 ==
LOC: JD.SDS 09:35 → JD.OB 10:30 → JD.SDS 11:15 → JD.OB 11:16
PROVIDERS: ADMIT Obstetrics & Gynecology; ATTEND Obstetrics & Gynecology
PROC: 10D17ZZ Extraction of Products of Conception, Retained, Via Natural or Artificial Opening (ICD-10-PCS; principal; 2018-02-13)
PROC: 0W3R7ZZ Control Bleeding in Genitourinary Tract, Via Natural or Artificial Opening (ICD-10-PCS; 2018-02-13)
PROC: 30233N1 Transfusion of Nonautologous Red Blood Cells into Peripheral Vein, Percutaneous Approach (ICD-10-PCS; 2018-02-13)
DX: O72.2 Delayed and secondary postpartum hemorrhage (principal); D62 Acute posthemorrhagic anemia; O86.12 Endometritis following delivery; Z87.59 Personal history of other complications of pregnancy, childbirth and the puerperium
CPT/HCPCS: 00940; 36415; 36430; 85025; 85027; 85384; 85610; 85730; 86850; 86900; 86901; 86922; J0690; J1580; J1630; J2001; J2210; J2250; J2270; J2405; J2704; J2710; J3010; J7030; J7120; P9016

== ENCOUNTER 2019-02-17 03:00 | Inpatient (IN) | payer BC ==
[2019-02-17] MEDS ORDERED: Misoprostol 100 MCG Tab VAG PRN (16:59)
[2019-02-17] MEDS ORDERED: Nalbuphine 10 MG/1 ML Vial IVPUSH PRN (16:59)
[2019-02-17] MEDS ORDERED: Ampicillin 2 GM in Sodium Chloride 0.9% 100 ML IV ONE (16:59)
[2019-02-17] MEDS ORDERED: Sodium Chloride 0.9% 10 ML Syringe FLUSH PRN (16:59)
[2019-02-17] MEDS ORDERED: Ondansetron 4 MG/2 ML SDV IVPUSH PRN (16:59)
[2019-02-17] MEDS ORDERED: Oxytocin/Lactated Ringers 10 UNIT/1,000 ML BAG IV SCH ×2 (17:00)
--- NOTE | 2019-02-17 17:03 | PCM.LDHP ---
L&D History of Present Illness - General Date of Service: 02/17/19 Admit Problem/Dx: Patient Status Order with Admit Dx/Problem 02/17/19 17:00 Patient Status [ADT] Routine Admission Diagnosis/Problem Admission Diagnosis/Problem Normal in third trimester Source of Information: Patient History Limitations: Reports: No Limitations - History of Present Illness Introduction:: Patient is a 28 y/o at 40 3/7 wks who presents for IOL. Doing well today. Some intermittent contractions. Otherwise doing well. No other issues. 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 baby girl named Cole Chavez Hematologic History: Reports: Blood Transfusion(s) - Past Surgical History HEENT Surgical History: Reports: Oral Surgery, Tonsillectomy Female Surgical History: Reports: D&C Social & Family History - Family History Family Medical History: Noncontributory - Tobacco Use Smoking Status *Q: Never Smoker - Caffeine Use Caffeine Use: Reports: Coffee - Alcohol Use Alcohol Use History: No - Recreational Drug Use Recreational Drug Use: No - Living Situation & Occupation Living situation: Reports: Occupation: Employed H&P Review of Systems - Review of Systems: Review Of Systems: See Below General: Reports: No Symptoms Pulmonary: Reports: No Symptoms Cardiovascular: Reports: No Symptoms Gastrointestinal: Reports: No Symptoms Genitourinary: Reports: No Symptoms Musculoskeletal: Reports: No Symptoms Psychiatric: Reports: No Symptoms Neurological: Reports: No Symptoms L&D Exam - Exam Exam: See Below - OB Specific Contraction Intensity: Irritability Movement: Active Heart Tones: Present Heart Tones per Min: 135 Heart Rate (FHR) Variability: Moderate (6-25 bmp) Presentation: Vertex - Mcgovern Score Mcgovern Score Cervix Position: Midposition Mcgovern Score Consistency: Soft Mcgovern Score Effacement: 51-70% Mcgovern Score Dilation: 3-4 cm Mcgovern Score Infant's Station: -2 Mcgovern Score Total: 8 - Exam General: Alert, Oriented, Cooperative Lungs: Clear to Auscultation, Normal Respiratory Effort Cardiovascular: Regular Rate, Regular Rhythm GI/Abdominal Exam: Soft, Non-Tender Genitourinary: Normal external exam Extremities: Normal Inspection Skin: Warm, Dry, Intact - Problem List (1) 40 weeks gestation of SNOMED Code(s): 09138424 ICD Code: Z3A.40 - 40 WEEKS GESTATION OF Status: Acute Current Visit: Yes (2) GBS (group B Streptococcus carrier), +RV culture, currently SNOMED Code(s): 0179060317669, [id number], 1064018691611 ICD Code: O99.820 - STREPTOCOCCUS B CARRIER STATE COMPLICATING Status: Acute Current Visit: Yes Problem List Initiated/Reviewed/Updated: Yes Orders Last 24hrs: Active Orders 24 hr Category Date Time Status Patient Status [ADT] Routine ADT 02/17/19 17:00 Ordered Activity as Tolerated [RC] PFP Care 02/17/19 17:00 Ordered Communication Order [RC] ASDIRECTED Care 02/17/19 17:00 Ordered Communication Order [RC] ASDIRECTED Care 02/17/19 17:00 Ordered Communication Order [RC] ASDIRECTED Care 02/17/19 17:00 Ordered Heart Tones [RC] ASDIRECTED Care 02/17/19 17:00 Ordered Non Stress Test [RC] PER UNIT ROUTINE Care 02/17/19 17:00 Ordered Notify Provider [RC] ASDIRECTED Care 02/17/19 17:00 Ordered Notify Provider [RC] PRN Care 02/17/19 17:00 Ordered Peripheral IV Care [RC] . DIRECTED Care 02/17/19 17:02 Ordered Vital Signs [RC] PER UNIT ROUTINE Care 02/17/19 17:00 Ordered Regular Diet [DIET] Diet 02/17/19 Dinner Ordered CBC W/O DIFF,HEMOGRAM [HEME] Routine Lab 02/17/19 16:59 Ordered RAPID PLASMA REAGIN,RPR [CHEM] Routine Lab 02/17/19 17:00 Ordered TYPE AND SCREEN [BBK] Routine Lab 02/17/19 16:59 Ordered Ampicillin 1 gm Med 02/17/19 17:00 Ordered Sodium Chloride 0.9% [Normal Saline] 100 ml IV Q4H Ampicillin 2 gm Med 02/17/19 16:59 Ordered Sodium Chloride 0.9% [Normal Saline] 100 ml IV ONETIME Lactated Ringers [Ringers, Lactated] 1,000 ml Med 02/17/19 17:00 Ordered IV ASDIRECTED Nalbuphine [Nubain] Med 02/17/19 16:59 Ordered 10 mg IVPUSH Q2H PRN Ondansetron [Zofran] Med 02/17/19 16:59 Ordered 4 mg IVPUSH Q4H PRN Oxytocin/Lactated Ringers [Pitocin in LR 10 Units/1,000 Med 02/17/19 17:00 Ordered ML] 10 unit in 1,000 ml IV .CONTINUOUS Oxytocin/Lactated Ringers [Pitocin in LR 10 Units/1,000 Med 02/17/19 17:00 Ordered ML] 10 unit in 1,000 ml IV TITRATE Sodium Chloride 0.9% [Saline Flush] Med 02/17/19 16:59 Ordered 10 ml FLUSH ASDIRECTED PRN miSOPROStol [Cytotec] Med 02/17/19 16:59 Ordered 25 mcg VAG Q4H PRN Electronic Heart Tones Ext w TOCO [WOMSER] Oth 02/17/19 17:00 Ordered Routine Electronic Heart Tones Internal [WOMSER] Per Unit Ot 02/17/19 17:00 Ordered Routine Peripheral IV Insertion Adult [OM.PC] Routine Ot 02/17/19 17:00 Ordered Resuscitation Status Routine Resus Stat 02/17/19 16:59 Ordered Assessment/Plan Comment:: 28 y/o at 40 3/7 wks presents for IOL * Labs * GBS positive, will start ampicillin * Pitocin to be started. AROM when able * Pain management per patient preference * Anticipate
[2019-02-17] MEDS: Lactated Ringers 1,000 ML IV SCH ×3 (17:49→23:44)
[2019-02-17] MEDS: Ampicillin 1 GM in Sodium Chloride 0.9% 100 ML IV SCH (21:24)
--- NOTE | 2019-02-17 22:13 | PCM.PNLD ---
Labor Progress Note - VS & Meds Vital Signs: Last Vital Signs Temp 36.9 C 02/17/19 17:00 Pulse 87 02/17/19 17:00 Resp 16 02/17/19 17:00 BP 120/79 02/17/19 17:00 Pulse Ox 100 02/17/19 17:00 Active Medications: Current Medications Ampicillin Sodium 1 gm/ Sodium (Chloride) 100 mls @ 200 mls/hr IV Q4H [facility]TE[facility] Last Admin: 02/17/19 21:24 Dose: 200 mls/hr Lactated Ringer's (Ringers, Lactated) 1,000 mls @ 40 mls/hr IV ASDIRECTED [facility]TE[facility] Last Admin: 02/17/19 17:49 Dose: 40 mls/hr Oxytocin/Lactated Ringer's (Pitocin In Lr 10 Units/1,000 Ml) 10 unit in 1,000 mls @ 500 mls/hr IV .CONTINUOUS MARTELL Oxytocin/Lactated Ringer's (Pitocin In Lr 10 Units/1,000 Ml) 10 unit in 1,000 mls @ 12 mls/hr IV TITRATE MARTELL; Protocol Last Titration: 02/17/19 20:30 Dose: 12 munits/min, 72 mls/hr Misoprostol (Cytotec) 25 mcg VAG Q4H PRN PRN Reason: cervical ripening Nalbuphine HCl (Nubain) 10 mg IVPUSH Q2H PRN PRN Reason: Pain Ondansetron HCl (Zofran) 4 mg IVPUSH Q4H PRN PRN Reason: Nausea/Vomiting Sodium Chloride (Saline Flush) 10 ml FLUSH ASDIRECTED PRN PRN Reason: Keep Vein Open Discontinued Medications Ampicillin Sodium 2 gm/ Sodium (Chloride) 100 mls @ 200 mls/hr IV ONETIME ONE Stop: 02/17/19 17:28 Last Admin: 02/17/19 17:50 Dose: 200 mls/hr - Uterine Contractions Uterine Monitoring Mode: External [place] Contraction Intensity: Moderate Uterine Resting Tone: Soft - Monitoring Monitor Mode: External Ultrasound Heart Rate (FHR) Baseline: 140 Heart Rate (FHR) Variability: Moderate (6-25 bmp) Accelerations: Present, 15x15 Decelerations: None Strip Review: Category I - Vaginal Exam Dilation (cm): 4 Effacement (Percent): 80 Station: -2 Cervical Position: Midposition - Labor Progress (Free Text) Labor Progress: Doing well. Pitocin at 12. AROM performed with release of clear fluid.
[2019-02-17] MEDS ORDERED: fentaNYL 100 MCG/2 ML SDV EPIDUR ONE (22:51)
[2019-02-17] MEDS ORDERED: Bupivacaine/fentaNYL/NS 100 ML Bag EPIDUR SCH (23:00)
--- NOTE | 2019-02-17 23:56 | PCM.POSTAN ---
POST ANESTHESIA ASSESSMENT - MENTAL STATUS Mental Status: Alert - RESPIRATORY Respiratory Status: Respiratory Rate WNL, Airway Patent - CARDIOVASCULAR CV Status: Pulse Rate WNL, Blood Pressure Stable - GASTROINTESTINAL GI Status: No Symptoms - POST OP HYDRATION Hydration Status: Adequate & Stable
--- NOTE | 2019-02-17 23:56 | PCM.PREANE ---
Preanesthetic Assessment - Anesthesia/Transfusion/Family Hx Anesthesia History: Prior Anesthesia Without Reaction Family History of Anesthesia Reaction: No Transfusion History: No Prior Transfusion(s) Intubation History: Unknown - Review of Systems General: No Symptoms Pulmonary: No Symptoms Cardiovascular: No Symptoms Gastrointestinal: No Symptoms Neurological: No Symptoms Other: Reports: None - Physical Assessment O2 Sat by Pulse Oximetry: 100 Respiratory Rate: 16 Vital Signs: Last Vital Signs Temp 36.9 C 02/17/19 17:00 Pulse 87 02/17/19 17:00 Resp 16 02/17/19 17:00 BP 120/79 02/17/19 17:00 Pulse Ox 100 02/17/19 17:00 Height: 1.63 m Weight: 87.09 kg ASA Class: 1E Mental Status: Alert & Oriented x3 Airway Class: Mallampati = 1 Dentition: Reports: Normal Dentition ROM/Head Extension: Full Lungs: Clear to Auscultation, Normal Respiratory Effort Cardiovascular: Regular Rate, Regular Rhythm - Lab Values: Laboratory Last Values WBC 12.68 K/mm3 (3.98-10.04) H 02/17/19 17:15 RBC 4.42 M/mm3 (3.98-5.22) 02/17/19 17:15 Hgb 13.6 gm/L (11.2-15.7) D 02/17/19 17:15 Hct 40.5 % (34.1-44.9) 02/17/19 17:15 MCV 91.6 fl (79.4-94.8) 02/17/19 17:15 MCH 30.8 pg (25.6-32.2) 02/17/19 17:15 MCHC 33.6 g/dl (32.2-35.5) 02/17/19 17:15 RDW Std Deviation 46.1 fL (36.4-46.3) 02/17/19 17:15 Plt Count 203 K/mm3 (182-369) 02/17/19 17:15 MPV 11.2 fl (9.4-12.3) 02/17/19 17:15 Blood Type O POSITIVE 02/17/19 17:15 Gel Antibody Screen Negative 02/17/19 17:15 - Allergies Allergies/Adverse Reactions: Allergies Allergy/AdvReac Type Severity Reaction Status Date / Time latex Allergy Swollen Verified 10/31/18 11:06 Eyes - Anesthesia Plan Pre-Op Medication Ordered: None - Acknowledgements Anesthesia Type Planned: Epidural Pt an Appropriate Candidate for the Planned Anesthesia: Yes Alternatives and Risks of Anesthesia Discussed w Pt/Guardian: Yes Pt/Guardian Understands and Agrees with Anesthesia Plan: Yes 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 baby girl named Cole Chavez Hematologic History: Reports: Blood Transfusion(s) - Past Surgical History HEENT Surgical History: Reports: Oral Surgery, Tonsillectomy Female Surgical History: Reports: D&C - SUBSTANCE USE Smoking Status *Q: Never Smoker Second Hand Smoke Exposure: No Recreational Drug Use History: No - HOME MEDS Home Medications: Home Meds PNV95/Ferrous Fumarate/FA [ Tablet] 1 tab PO DAILY 02/27/17 [History] Vit B Cmplx NO3/Fa/C/Biot/Zinc [Nephplex Rx] 1 tab PO DAILY 02/17/19 [History] - CURRENT (IN HOUSE) MEDS Current Meds: Current Medications Fentanyl/Bupivacaine HCl (Fentanyl/Bupivacaine/Ns 2 Mcg-0.125% 100 Ml) 100 ml EPIDUR ASDIRECTED [facility]TELL Ampicillin Sodium 1 gm/ Sodium (Chloride) 100 mls @ 200 mls/hr IV Q4H [facility]LE[facility] Last Admin: 02/17/19 21:24 Dose: 200 mls/hr Lactated Ringer's (Ringers, Lactated) 1,000 mls @ 40 mls/hr IV ASDIRECTED [facility]TE[facility] Last Admin: 02/17/19 23:44 Dose: 40 mls/hr Oxytocin/Lactated Ringer's (Pitocin In Lr 10 Units/1,000 Ml) 10 unit in 1,000 mls @ 500 mls/hr IV .CONTINUOUS MARTELL Oxytocin/Lactated Ringer's (Pitocin In Lr 10 Units/1,000 Ml) 10 unit in 1,000 mls @ 12 mls/hr IV TITRATE MARTELL; Protocol Last Titration: 02/17/19 22:58 Dose: 8 munits/min, 48 mls/hr Misoprostol (Cytotec) 25 mcg VAG Q4H PRN PRN Reason: cervical ripening Nalbuphine HCl (Nubain) 10 mg IVPUSH Q2H PRN PRN Reason: Pain Ondansetron HCl (Zofran) 4 mg IVPUSH Q4H PRN PRN Reason: Nausea/Vomiting Sodium Chloride (Saline Flush) 10 ml FLUSH ASDIRECTED PRN PRN Reason: Keep Vein Open Discontinued Medications Fentanyl (Sublimaze) 100 mcg EPIDUR ONETIME ONE Stop: 02/17/19 22:52 Ampicillin Sodium 2 gm/ Sodium (Chloride) 100 mls @ 200 mls/hr IV ONETIME ONE Stop: 02/17/19 17:28 Last Admin: 02/17/19 17:50 Dose: 200 mls/hr
[2019-02-18] MEDS ORDERED: Bupivacaine 0.25% 10 ML SDV ONE
[2019-02-18] MEDS: Ampicillin 1 GM in Sodium Chloride 0.9% 100 ML IV SCH ×2 (01:01→06:41)
[2019-02-18] MEDS ORDERED: Misoprostol 200 MCG Tab ONE (03:13)
[2019-02-18] MEDS ORDERED: Carboprost Tromethamine 250 MCG/1 ML Amp ONE (03:21)
[2019-02-18] MEDS ORDERED: Carboprost Tromethamine 250 MCG/1 ML Amp IM ONE (03:52)
[2019-02-18] MEDS ORDERED: Methylergonovine 0.2 MG/1 ML Amp IM STA (03:52)
[2019-02-18] MEDS ORDERED: Misoprostol 200 MCG Tab PO STA (03:52)
--- NOTE | 2019-02-18 04:02 | PCM.DEL ---
L & D Note - General Info Date of Service: 02/18/19 - Delivery Note Labor: Induced by ARM, Induced by Oxytocin Delivery Outcome: Livebirth Infant Delivery Method: Spontaneous Vaginal Delivery-Single Infant Delivery Mode: Spontaneous Presentation: Right Occiput Anterior (ENEDELIA) Nuchal Cord: Present, Reduced Anesthesia Type: Epidural Amniotic Fluid Description: Clear Episiotomy Type: None Laceration: 2nd Degree, Perineal Suture type: Vicryl Suture size: 2-0 Placenta: Intact, Spontaneous Cord: 3 Vessels Estimated Blood Loss: 700 [place]: Bulb Syringe, Stimulated, Warmed, [place] Used, Warmer Used Delivery Comments (Free Text/Narrative):: Patient found to be complete and began pushing. With maternal pushing effort head delivered from an ENEDELIA presentation. Nuchal cord present and reduced. With gentle downward traction the shoulders and body delivered. Infant placed on maternal abdomen. Cord clamped and cut. Cord blood obtained. Placenta allowed time to separate and expelled intact. Immediately after this patient with PPH from at[place]. Given first Cytotec, then methergine, then hemabate, and finally tranexamic acid. Bladder emptied. The above interventions eventually did resolved hemorrhage. Total EBL of 700 cc. Inspection of the perineum showed a 2nd degree laceration which was repaired with a 2-0 vicryl in the typical fashion - General Info Date of Service: 02/18/19 - Patient Data Vitals - Most Recent: Last Vital Signs Temp 36.9 C 02/17/19 17:00 Pulse 87 02/17/19 17:00 Resp 16 02/17/19 23:56 BP 120/79 02/17/19 17:00 Pulse Ox 100 02/17/19 23:56 Weight - Most Recent: 87.09 kg I&O - Last 24 Hours: Intake & Output 02/17/19 02/17/19 02/18/19 14:59 22:59 06:59 Intake Total 2200 Balance 2200 Lab Results Last 24 Hours: Laboratory Results - last 24 hr 02/17/19 02/17/19 Range/Units 17:15 17:15 WBC 12.68 H (3.98-10.04) K/mm3 RBC 4.42 (3.98-5.22) M/mm3 Hgb 13.6 D (11.2-15.7) gm/L Hct 40.5 (34.1-44.9) % MCV 91.6 (79.4-94.8) fl MCH 30.8 (25.6-32.2) pg MCHC 33.6 (32.2-35.5) g/dl RDW Std Deviation 46.1 (36.4-46.3) fL Plt Count 203 (182-369) K/mm3 MPV 11.2 (9.4-12.3) fl Blood Type O POSITIVE Gel Antibody Screen Negative Med Orders - Current: Current Medications Carboprost Tromethamine (Hemabate Ds) 250 mcg IM ONETIME ONE Stop: 02/18/19 03:53 Fentanyl/Bupivacaine HCl (Fentanyl/Bupivacaine/Ns 2 Mcg-0.125% 100 Ml) 100 ml EPIDUR ASDIRECTED MARTELL Ampicillin Sodium 1 gm/ Sodium (Chloride) 100 mls @ 200 mls/hr IV Q4H MARTELL Last Admin: 02/18/19 01:01 Dose: 200 mls/hr Lactated Ringer's (Ringers, Lactated) 1,000 mls @ 40 mls/hr IV ASDIRECTED MARTELL Last Admin: 02/17/19 23:44 Dose: 40 mls/hr Oxytocin/Lactated Ringer's (Pitocin In Lr 10 Units/1,000 Ml) 10 unit in 1,000 mls @ 500 mls/hr IV .CONTINUOUS MARTELL Last Admin: 02/18/19 04:00 Dose: 500 mls/hr Oxytocin/Lactated Ringer's (Pitocin In Lr 10 Units/1,000 Ml) 10 unit in 1,000 mls @ 12 mls/hr IV TITRATE MARTELL; Protocol Last Titration: 02/17/19 22:58 Dose: 8 munits/min, 48 mls/hr Misoprostol (Cytotec) 25 mcg VAG Q4H PRN PRN Reason: cervical ripening Nalbuphine HCl (Nubain) 10 mg IVPUSH Q2H PRN PRN Reason: Pain Ondansetron HCl (Zofran) 4 mg IVPUSH Q4H PRN PRN Reason: Nausea/Vomiting Sodium Chloride (Saline Flush) 10 ml FLUSH ASDIRECTED PRN PRN Reason: Keep Vein Open Tranexamic Acid (Cyklokapron) 1,000 mg IVPUSH ONETIME ONE Stop: 02/18/19 03:53 Discontinued Medications Carboprost Tromethamine (Hemabate Ds) Confirm Administered Dose 250 mcg .ROUTE .STK-MED ONE Stop: 02/18/19 03:22 Fentanyl (Sublimaze) 100 mcg EPIDUR ONETIME ONE Stop: 02/17/19 22:52 Ampicillin Sodium 2 gm/ Sodium (Chloride) 100 mls @ 200 mls/hr IV ONETIME ONE Stop: 02/17/19 17:28 Last Admin: 02/17/19 17:50 Dose: 200 mls/hr Methylergonovine Maleate (Methergine) 0.2 mg IM Q4H STA Stop: 02/18/19 03:53 Misoprostol (Cytotec) Confirm Administered Dose 600 mcg .ROUTE .STK-MED ONE Stop: 02/18/19 03:14 Misoprostol (Cytotec) 600 mcg PO NOW STA Stop: 02/18/19 03:53 Tranexamic Acid (Cyklokapron) Confirm Administered Dose 1,000 mg .ROUTE .STK- MED ONE Stop: 02/18/19 03:17 - Problem List & Annotations (1) 40 weeks gestation of SNOMED Code(s): 15955527 Code(s): Z3A.40 - 40 WEEKS GESTATION OF Status: Acute Current Visit: Yes (2) GBS (group B Streptococcus carrier), +RV culture, currently SNOMED Code(s): 0052631909473, 159666006, 3906252502484 Code(s): O99.820 - STREPTOCOCCUS B CARRIER STATE COMPLICATING Status: Acute Current Visit: Yes (3) Vaginal delivery SNOMED Code(s): 057240750 Code(s): O80 - ENCOUNTER FOR FULL-TERM UNCOMPLICATED DELIVERY Status: Acute Current Visit: Yes (4) hemorrhage SNOMED Code(s): 97165442 Code(s): O72.1 - OTHER IMMEDIATE HEMORRHAGE Status: Acute Current Visit: Yes Qualifiers: hemorrhage type: other immediate Qualified Code(s): O72.1 - Other immediate hemorrhage - Problem List Review Problem List Initiated/Reviewed/Updated: Yes - My Orders Last 24 Hours: My Active Orders 02/17/19 16:59 Nalbuphine [Nubain] 10 mg IVPUSH Q2H PRN Ondansetron [Zofran] 4 mg IVPUSH Q4H PRN Sodium Chloride 0.9% [Saline Flush] 10 ml FLUSH ASDIRECTED PRN miSOPROStol [Cytotec] 25 mcg VAG Q4H PRN Resuscitation Status Routine 02/17/19 17:00 Patient Status [ADT] Routine Activity as Tolerated [RC] PFP Communication Order [RC] ASDIRECTED Communication Order [RC] ASDIRECTED Communication Order [RC] ASDIRECTED Notify Provider [RC] ASDIRECTED Notify Provider [RC] PRN Vital Signs [RC] PER UNIT ROUTINE RAPID PLASMA REAGIN,RPR [CHEM] Routine Lactated Ringers [Ringers, Lactated] 1,000 ml IV ASDIRECTED Oxytocin/Lactated Ringers [Pitocin in LR 10 Units/1,000 ML] 10 unit in 1,000 ml IV .CONTINUOUS Oxytocin/Lactated Ringers [Pitocin in LR 10 Units/1,000 ML] 10 unit in 1,000 ml IV TITRATE Electronic Heart Tones Ext w TOCO [WOMSER] Routine Electronic Heart Tones Internal [WOMSER] Per Unit Routine Peripheral IV Insertion Adult [OM.PC] Routine 02/17/19 21:00 Ampicillin 1 gm Sodium Chloride 0.9% [Normal Saline] 100 ml IV Q4H 02/17/19 Dinner Regular Diet [DIET] 02/18/19 03:52 Carboprost Tromethamine [Hemabate DS] 250 mcg IM ONETIME ONE Methylergonovine [Methergine] 0.2 mg IM Q4H STA Tranexamic Acid [Cyklokapron] 1,000 mg IVPUSH ONETIME ONE miSOPROStol [Cytotec] 600 mcg PO NOW STA 02/18/19 03:58 Patient Status Manage Transfer [TRANSFER] Routine - Assessment Assessment:: 28 y/o G3 now P1111 PPD#0 from at 40 4/7 wks - Plan Plan:: * Routine cares * Encourage breast feeding * Discharge home in 1-2 days
[2019-02-18] MEDS ORDERED: Witch Hazel Medicated Pads 40/Jar TOP PRN (05:01)
[2019-02-18] MEDS ORDERED: Lanolin 100% Cream 7 GM Tube TOP PRN (05:01)
[2019-02-18] MEDS ORDERED: Benzocaine/Menthol 20%-0.5% Spray 56 GM Canister TOP PRN (05:01)
[2019-02-18] MEDS ORDERED: Acetaminophen 325 MG Tab PO PRN (05:01)
--- NOTE | 2019-02-18 12:15 | PCM48HPAN ---
Post Anesthesia Note - EVALUATION WITHIN 48HRS OF ANESTHETIC Vital Signs in Normal Range: Yes Patient Participated in Evaluation: Yes Respiratory Function Stable: Yes Airway Patent: Yes Cardiovascular Function Stable: Yes Hydration Status Stable: Yes Pain Control Satisfactory: Yes Nausea and Vomiting Control Satisfactory: Yes Mental Status Recovered: Yes Resp Rate: 16
[2019-02-18] MEDS: Ibuprofen 600 MG Tab PO PRN ×2 (16:35→23:12)
--- NOTE | 2019-02-19 07:28 | PCM.PNPP ---
- General Info Date of Service: 02/19/19 Functional Status: Reports: Pain Controlled, Tolerating Diet, Ambulating, Urinating - Review of Systems General: Reports: No Symptoms Pulmonary: Reports: Shortness of Breath (last night briefly, now resolved) Cardiovascular: Reports: No Symptoms Gastrointestinal: Reports: No Symptoms Genitourinary: Reports: Other (Soreness at laceration site) Musculoskeletal: Reports: No Symptoms - Patient Data Vital Signs - Most Recent: Last Vital Signs Temp 37.1 C 02/18/19 21:27 Pulse 94 02/19/19 05:15 Resp 16 02/19/19 05:15 BP 107/57 L 02/19/19 05:15 Pulse Ox 96 02/19/19 05:15 Weight - Most Recent: 87.09 kg I&O - Last 24 Hours: Intake & Output 02/18/19 02/19/19 02/19/19 22:59 06:59 14:59 Intake Total 120 Balance 120 Lab Results - Last 24 Hours: Laboratory Results - last 24 hr 02/17/19 Range/Units 17:15 RPR Non-reactive (NONREACTIVE) Med Orders - Current: Current Medications Acetaminophen (Tylenol) 650 mg PO Q4H PRN PRN Reason: mild pain or fever Benzocaine/Menthol (Dermoplast Pain Relief [place]) 0 gm TOP ASDIRECTED PRN PRN Reason: Perineal Comfort Measure Docusate Sodium (Colace) 100 mg PO BID PRN PRN Reason: Constipation Emollient Ointment (Lansinoh Hpa) 0 gm TOP ASDIRECTED PRN PRN Reason: Sore Nipples Ibuprofen (Motrin) 600 mg PO Q6H PRN PRN Reason: Mild pain or fever Last Admin: 02/18/19 23:12 Dose: 600 mg Witch Basia (Tucks) 1 pad TOP ASDIRECTED PRN PRN Reason: Perineal Comfort Measure Discontinued Medications Bupivacaine HCl (Sensorcaine-Mpf 0.25%) 10 ml .ROUTE .STK-MED ONE Stop: 02/18/19 00:01 Carboprost Tromethamine (Hemabate Ds) Confirm Administered Dose 250 mcg .ROUTE .STK-MED ONE Stop: 02/18/19 03:22 Last Admin: 02/18/19 04:10 Dose: Not Given Carboprost Tromethamine (Hemabate Ds) 250 mcg IM ONETIME ONE Stop: 02/18/19 03:53 Last Admin: 02/18/19 03:25 Dose: 250 mcg Fentanyl (Sublimaze) 100 mcg EPIDUR ONETIME ONE Stop: 02/17/19 22:52 Last Admin: 02/18/19 16:11 Dose: Not Given Fentanyl/Bupivacaine HCl (Fentanyl/Bupivacaine/Ns 2 Mcg-0.125% 100 Ml) 100 ml EPIDUR ASDIRECTED MARTELL Ampicillin Sodium 2 gm/ Sodium (Chloride) 100 mls @ 200 mls/hr IV ONETIME ONE Stop: 02/17/19 17:28 Last Admin: 02/17/19 17:50 Dose: 200 mls/hr Ampicillin Sodium 1 gm/ Sodium (Chloride) 100 mls @ 200 mls/hr IV Q4H MARTELL Last Admin: 02/18/19 06:41 Dose: Not Given Lactated Ringer's (Ringers, Lactated) 1,000 mls @ 40 mls/hr IV ASDIRECTED MARTELL Last Admin: 02/17/19 23:44 Dose: 40 mls/hr Oxytocin/Lactated Ringer's (Pitocin In Lr 10 Units/1,000 Ml) 10 unit in 1,000 mls @ 500 mls/hr IV .CONTINUOUS MARTELL Last Admin: 02/18/19 04:00 Dose: 500 mls/hr Oxytocin/Lactated Ringer's (Pitocin In Lr 10 Units/1,000 Ml) 10 unit in 1,000 mls @ 12 mls/hr IV TITRATE MARTELL; Protocol Last Titration: 02/18/19 03:45 Dose: Infused Methylergonovine Maleate (Methergine) 0.2 mg IM Q4H STA Stop: 02/18/19 03:53 Last Admin: 02/18/19 03:13 Dose: 0.2 mg Methylergonovine Maleate (Methergine) 0.2 mg .ROUTE .STK-MED ONE Stop: 02/19/20 00:01 Misoprostol (Cytotec) 25 mcg VAG Q4H PRN PRN Reason: cervical ripening Misoprostol (Cytotec) Confirm Administered Dose 600 mcg .ROUTE .STK-MED ONE Stop: 02/18/19 03:14 Last Admin: 02/18/19 04:10 Dose: Not Given Misoprostol (Cytotec) 600 mcg PO NOW STA Stop: 02/18/19 03:53 Last Admin: 02/18/19 03:05 Dose: 600 mcg Nalbuphine HCl (Nubain) 10 mg IVPUSH Q2H PRN PRN Reason: Pain Ondansetron HCl (Zofran) 4 mg IVPUSH Q4H PRN PRN Reason: Nausea/Vomiting Sodium Chloride (Saline Flush) 10 ml FLUSH ASDIRECTED PRN PRN Reason: Keep Vein Open Tranexamic Acid (Cyklokapron) Confirm Administered Dose 1,000 mg .ROUTE .STK- MED ONE Stop: 02/18/19 03:17 Last Admin: 02/18/19 04:10 Dose: Not Given Tranexamic Acid (Cyklokapron) 1,000 mg IVPUSH ONETIME ONE Stop: 02/18/19 03:53 Last Admin: 02/18/19 03:35 Dose: 1,000 mg - Infant Interaction Infant Disposition, : [place] in Room with Family Infant Interaction: Holding Infant Feeding: Attempted ; Nursed Fair/Poor Support Person: , Mother, Sister - Recovery Exam Fundal Tone: Firm Fundal Level: 1 Fingerbreadths Below Umbilicus Fundal Placement: Midline Lochia Amount: Small Lochia Color: Rubra/Red Perineum Description: Other (see below) Other Perinuem Description: 2nd degree with repair Episiotomy/Laceration: Approximated Bladder Status: Voiding - Exam General: Alert, Oriented, Cooperative GI/Abdominal Exam: Soft, Non-Tender Extremities: Normal Inspection Skin: Warm, Dry, Intact - Problem List & Annotations (1) 40 weeks gestation of SNOMED Code(s): 60202122 Code(s): Z3A.40 - 40 WEEKS GESTATION OF Status: Acute Current Visit: Yes (2) GBS (group B Streptococcus carrier), +RV culture, currently SNOMED Code(s): 5208783322521, 751888930, 8442378518788 Code(s): O99.820 - STREPTOCOCCUS B CARRIER STATE COMPLICATING Status: Acute Current Visit: Yes (3) Vaginal delivery SNOMED Code(s): 638901489 Code(s): O80 - ENCOUNTER FOR FULL-TERM UNCOMPLICATED DELIVERY Status: Acute Current Visit: Yes (4) hemorrhage SNOMED Code(s): 65314573 Code(s): O72.1 - OTHER IMMEDIATE HEMORRHAGE Status: Acute Current Visit: Yes Qualifiers: hemorrhage type: other immediate Qualified Code(s): O72.1 - Other immediate hemorrhage - Problem List Review Problem List Initiated/Reviewed/Updated: Yes - My Orders Last 24 Hours: My Active Orders 02/18/19 Breakfast Regular Diet [DIET] 02/19/19 05:01 Heat Therapy [OM.PC] PRN - Assessment Assessment:: 28 y/o G3 now P1111 PPD#1 from at 40 4/7 wks - Plan Plan:: * Routine cares * Encourage breast feeding * Doing well after PPH. Will continue to monitor closely * Discharge home today vs tomorrow pending patient preference
[2019-02-19] MEDS: Ibuprofen 600 MG Tab PO PRN ×2 (08:51→19:01)
[2019-02-19] MEDS: Docusate Sodium 100 MG Cap PO PRN (14:12)
[2019-02-20] MEDS: Ibuprofen 600 MG Tab PO PRN ×2 (02:03→08:35)
--- NOTE | 2019-02-20 06:19 | PCM.DCSUM1 ---
Discharge Summary - Discharge Data Discharge Date: 02/20/19 Discharge Disposition: Home, Self-Care 01 Condition: Good - Discharge Diagnosis/Problem(s) (1) 40 weeks gestation of SNOMED Code(s): 32958946 ICD Code: Z3A.40 - 40 WEEKS GESTATION OF Status: Acute (2) GBS (group B Streptococcus carrier), +RV culture, currently SNOMED Code(s): 3567323889499, 018755676, 8886025832830 ICD Code: O99.820 - STREPTOCOCCUS B CARRIER STATE COMPLICATING Status: Acute (3) Vaginal delivery SNOMED Code(s): 216460761 ICD Code: O80 - ENCOUNTER FOR FULL-TERM UNCOMPLICATED DELIVERY Status: Acute (4) hemorrhage SNOMED Code(s): 60369953 ICD Code: O72.1 - OTHER IMMEDIATE HEMORRHAGE Status: Acute Qualifiers: hemorrhage type: other immediate Qualified Code(s): O72.1 - Other immediate hemorrhage - Patient Summary/Data Complications: None Consults: None Recommended Follow-up Testing/Procedures: Follow up in 3 weeks for check Hospital Course: Patient is a 28 y/o at 40 3/7 wks who presented for IOL. This was done with pitocin and AROM. She progressed well to complete dilation. Underwent a vaginal delivery complicated by a 700 cc PPH. See delivery note for full details. she did well and was discharged home on PPD#2 - Patient Instructions Diet: Regular Diet as Tolerated Activity: As Tolerated Activity, Other: Pelvic rest for 6 weeks Driving: May Drive Today Showering/Bathing: May Shower Showering/Bathing, Other: May bathe Notify Provider of: Fever, Increased Pain, Swelling and Redness, Drainage, Nausea and/or Vomiting - Discharge Plan *PRESCRIPTION DRUG MONITORING PROGRAM REVIEWED*: Not Applicable *COPY OF PRESCRIPTION DRUG MONITORING REPORT IN PATIENT DARLYN: Not Applicable Home Medications: Home Meds PNV95/Ferrous Fumarate/FA [ Tablet] 1 tab PO DAILY 02/27/17 [History] Vit B Cmplx NO3/Fa/C/Biot/Zinc [Nephplex Rx] 1 tab PO DAILY 02/17/19 [History] Docusate Sodium [Colace] 100 mg PO BID PRN cap 02/18/19 [Rx] Ibuprofen [Motrin] 600 mg PO Q6H PRN tablet 02/18/19 [Rx] Patient Handouts: Home Care Instructions for Mom, Care of a Perineal Tear Referrals: Debbie Ayala MD [Primary Care Provider] - (3 weeks for check ) - Discharge Summary/Plan Comment DC Time >30 min.: No - Patient Data Vitals - Most Recent: Last Vital Signs Temp 36.9 C 02/19/19 21:10 Pulse 85 02/20/19 02:01 Resp 15 02/20/19 02:01 BP 121/67 02/20/19 02:01 Pulse Ox 98 02/20/19 02:01 Weight - Most Recent: 87.09 kg I&O - Last 24 hours: Intake & Output 02/19/19 02/19/19 02/20/19 14:59 22:59 06:59 Intake Total 540 Balance 540 Med Orders - Current: Current Medications Acetaminophen (Tylenol) 650 mg PO Q4H PRN PRN Reason: mild pain or fever Benzocaine/Menthol (Dermoplast Pain Relief [place]) 0 gm TOP ASDIRECTED PRN PRN Reason: Perineal Comfort Measure Docusate Sodium (Colace) 100 mg PO BID PRN PRN Reason: Constipation Last Admin: 02/19/19 14:12 Dose: 100 mg Emollient Ointment (Lansinoh Hpa) 0 gm TOP ASDIRECTED PRN PRN Reason: Sore Nipples Ibuprofen (Motrin) 600 mg PO Q6H PRN PRN Reason: Mild pain or fever Last Admin: 02/20/19 02:03 Dose: 600 mg Witch Basia (Tucks) 1 pad TOP ASDIRECTED PRN PRN Reason: Perineal Comfort Measure Last Admin: 02/19/19 14:12 Dose: 1 tub Discontinued Medications Bupivacaine HCl (Sensorcaine-Mpf 0.25%) 10 ml .ROUTE .STK-MED ONE Stop: 02/18/19 00:01 Carboprost Tromethamine (Hemabate Ds) Confirm Administered Dose 250 mcg .ROUTE .STK-MED ONE Stop: 02/18/19 03:22 Last Admin: 02/18/19 04:10 Dose: Not Given Carboprost Tromethamine (Hemabate Ds) 250 mcg IM ONETIME ONE Stop: 02/18/19 03:53 Last Admin: 02/18/19 03:25 Dose: 250 mcg Fentanyl (Sublimaze) 100 mcg EPIDUR ONETIME ONE Stop: 02/17/19 22:52 Last Admin: 02/18/19 16:11 Dose: Not Given Fentanyl/Bupivacaine HCl (Fentanyl/Bupivacaine/Ns 2 Mcg-0.125% 100 Ml) 100 ml EPIDUR ASDIRECTED MARTELL Ampicillin Sodium 2 gm/ Sodium (Chloride) 100 mls @ 200 mls/hr IV ONETIME ONE Stop: 02/17/19 17:28 Last Admin: 02/17/19 17:50 Dose: 200 mls/hr Ampicillin Sodium 1 gm/ Sodium (Chloride) 100 mls @ 200 mls/hr IV Q4H MARTELL Last Admin: 02/18/19 06:41 Dose: Not Given Lactated Ringer's (Ringers, Lactated) 1,000 mls @ 40 mls/hr IV ASDIRECTED MARTELL Last Admin: 02/17/19 23:44 Dose: 40 mls/hr Oxytocin/Lactated Ringer's (Pitocin In Lr 10 Units/1,000 Ml) 10 unit in 1,000 mls @ 500 mls/hr IV .CONTINUOUS MARTELL Last Admin: 02/18/19 04:00 Dose: 500 mls/hr Oxytocin/Lactated Ringer's (Pitocin In Lr 10 Units/1,000 Ml) 10 unit in 1,000 mls @ 12 mls/hr IV TITRATE MARTELL; Protocol Last Titration: 02/18/19 03:45 Dose: Infused Methylergonovine Maleate (Methergine) 0.2 mg IM Q4H STA Stop: 02/18/19 03:53 Last Admin: 02/18/19 03:13 Dose: 0.2 mg Methylergonovine Maleate (Methergine) 0.2 mg .ROUTE .STK-MED ONE Stop: 02/19/20 00:01 Misoprostol (Cytotec) 25 mcg VAG Q4H PRN PRN Reason: cervical ripening Misoprostol (Cytotec) Confirm Administered Dose 600 mcg .ROUTE .STK-MED ONE Stop: 02/18/19 03:14 Last Admin: 02/18/19 04:10 Dose: Not Given Misoprostol (Cytotec) 600 mcg PO NOW STA Stop: 02/18/19 03:53 Last Admin: 02/18/19 03:05 Dose: 600 mcg Nalbuphine HCl (Nubain) 10 mg IVPUSH Q2H PRN PRN Reason: Pain Ondansetron HCl (Zofran) 4 mg IVPUSH Q4H PRN PRN Reason: Nausea/Vomiting Sodium Chloride (Saline Flush) 10 ml FLUSH ASDIRECTED PRN PRN Reason: Keep Vein Open Tranexamic Acid (Cyklokapron) Confirm Administered Dose 1,000 mg .ROUTE .STK- MED ONE Stop: 02/18/19 03:17 Last Admin: 02/18/19 04:10 Dose: Not Given Tranexamic Acid (Cyklokapron) 1,000 mg IVPUSH ONETIME ONE Stop: 02/18/19 03:53 Last Admin: 02/18/19 03:35 Dose: 1,000 mg
[2019-02-20] MEDS: Docusate Sodium 100 MG Cap PO PRN (08:35)
[2019-02-20 10:16] VITALS: BP 113/68
[2020-02-19] MEDS ORDERED: Methylergonovine 0.2 MG/1 ML Amp ONE
== END 2019-02-20 10:40 | disposition home or self-care (01) | DRG 560 ==
LOC: JD.OB 03:00 → OBSVTOIN 02-18 03:00 → JD.OB 02-18 03:01
PROVIDERS: ADMIT Obstetrics & Gynecology; ATTEND Obstetrics & Gynecology
PROC: 10E0XZZ Delivery of Products of Conception, External Approach (ICD-10-PCS; principal; 2019-02-18)
PROC: 10907ZC Drainage of Amniotic Fluid, Therapeutic from Products of Conception, Via Natural or Artificial Opening (ICD-10-PCS; 2019-02-18)
PROC: 3E033VJ Introduction of Other Hormone into Peripheral Vein, Percutaneous Approach (ICD-10-PCS; 2019-02-18)
PROC: 0KQM0ZZ Repair Perineum Muscle, Open Approach (ICD-10-PCS; 2019-02-18)
DX: O48.0 Post-term pregnancy (principal); O99.824 Streptococcus B carrier state complicating childbirth; O69.81X0 Labor and delivery complicated by cord around neck, without compression, not applicable or unspecified; O70.1 Second degree perineal laceration during delivery; O72.1 Other immediate postpartum hemorrhage; Z3A.40 40 weeks gestation of pregnancy; Z37.0 Single live birth
CPT/HCPCS: 01967; 36415; 51701; 51702; 59025; 59409; 85027; 86592; 86850; 86900; 86901; A9270-GY; J0290; J2210; J2590; J3490; J7030; J7120

== ENCOUNTER 2019-10-21 12:59 | Emergency (ER) | payer BC ==
[2019-10-21 13:43] VITALS: BP 107/66; PULSE 80
[2019-10-21] MEDS ORDERED: Sodium Chloride 0.9% 10 ML Syringe FLUSH PRN (14:08)
--- NOTE | 2019-10-21 14:10 | EDM.PDOC ---
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 Patient states that she is around 17 weeks , her last menstrual period was June 21, she is a A2. She had 1 miscarriage and 1 stillbirth at 23 weeks. The patient notes that this morning, she started bleeding, and this is a small amount of bright red blood, she states that there is enough of this to get onto the toilet paper when she wipes. She is not having any clots or passing any other like tissue material. Patient is also complaining of some lower abdominal pain, worse so on the right lower groin area. She is having also some slight lower back pain with this as well. Patient states that her is going well thus far, and is established with Dr. Ayala. Patient is not complaining of any dysuria, frequency or urgency but is not abnormal for her. She is not complaining of any other symptoms, she states she was in a good state of health prior to the vaginal bleeding and mild pain this morning. She did take Tylenol as well with the pain help. 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 baby girl named Cole Chavez Hematologic History: Reports: Blood Transfusion(s) - Past Surgical History HEENT Surgical History: Reports: Oral Surgery, Tonsillectomy Female Surgical History: Reports: D&C Social & Family History - Family History Family Medical History: Noncontributory - Tobacco Use Smoking Status *Q: Never Smoker - Caffeine Use Caffeine Use: Reports: Coffee, Soda, Tea - Recreational Drug Use Recreational Drug Use: No - Living Situation & Occupation Living situation: Reports: Occupation: Employed ED ROS GENERAL - Review of Systems Review Of Systems: See Below Constitutional: Denies: Fever, Chills Respiratory: Denies: Shortness of Breath Cardiovascular: Denies: Chest Pain GI/Abdominal: Reports: Abdominal Pain (lower abd/pelvic pain, worse in RLQ but tender throughout lower abdomen). Denies: Constipation, Diarrhea, Nausea, Vomiting : Reports: Discharge (small amount of light vaginal bleeding.), Pain (low pelvic cramping/discomfort). Denies: Dysuria, Frequency, Urgency ED EXAM - Physical Exam Exam: See Below Exam Limited By: No Limitations General Appearance: Alert, WD/WN, No Apparent Distress Eye Exam: Bilateral Eye: EOMI, Normal Inspection, PERRL Ears: Normal External Exam Nose: Normal Inspection Throat/Mouth: Normal Inspection, Normal Lips, Normal Teeth, Normal Gums, Normal Oropharynx, Normal Voice, No Airway Compromise Head: Atraumatic, Normocephalic Neck: Normal Inspection Respiratory/Chest: No Respiratory Distress, Lungs Clear, Normal Breath Sounds, No Accessory Muscle Use, Chest Non-Tender Cardiovascular: Normal Peripheral Pulses, Regular Rate, Rhythm, No Murmur GI/Abdominal Exam: Normal Bowel Sounds, Soft, No Distention, No Mass, Tender ( Lower abd/suprapubic tenderness) (Female) Exam: Normal Bimanual Exam, Normal External Exam, Normal Speculum Exam, Vaginal Discharge (scant amount of whitish discharge). No: Cervix Motion Tenderness, Tissue Present in Cervix/Vagina, Vaginal Bleeding Heart Tones: Present Heart Tones per Min: 160 Movement: Not Appreciated Back Exam: Normal Inspection, Full Range of Motion Extremities: Normal Inspection, Normal Capillary Refill Neurological: Alert, Oriented, Normal Cognition, No Motor/Sensory Deficits Psychiatric: Normal Affect, Normal Mood Skin Exam: Warm, Dry, Intact, Normal Color, No Rash Course - Vital Signs Last Recorded V/S: Last Vital Signs Temp 99.0 F 10/21/19 13:41 Pulse 80 10/21/19 13:41 Resp 20 10/21/19 13:41 BP 107/66 10/21/19 13:41 Pulse Ox 99 10/21/19 13:41 - Orders/Labs/Meds Orders: Active Orders 24 hr Category Date Time Status Peripheral IV Care [RC] . DIRECTED Care 10/21/19 14:09 Active Peripheral IV Insertion Adult [OM.PC] Stat Oth 10/21/19 14:08 Ordered Labs: Laboratory Tests 10/21/19 10/21/19 10/21/19 Range/Units 14:30 14:30 14:30 WBC 11.17 H (3.98-10.04) K/mm3 RBC 4.19 (3.98-5.22) M/mm3 Hgb 12.5 (11.2-15.7) gm/dl Hct 38.7 (34.1-44.9) % MCV 92.4 (79.4-94.8) fl MCH 29.8 (25.6-32.2) pg MCHC 32.3 (32.2-35.5) g/dl RDW Std Deviation 48.1 H (36.4-46.3) fL Plt Count 211 (182-369) K/mm3 MPV 10.7 (9.4-12.3) fl Neut % (Auto) 78.4 H (34.0-71.1) % Lymph % (Auto) 16.3 L (19.3-51.7) % [place] % (Auto) 3.5 L (4.7-12.5) % Eos % (Auto) 1.5 (0.7-5.8) Baso % (Auto) 0.2 (0.1-1.2) % Neut # (Auto) 8.76 H (1.56-6.13) K/mm3 Lymph # (Auto) 1.82 (1.18-3.74) K/mm3 [place] # (Auto) 0.39 H (0.24-0.36) K/mm3 Eos # (Auto) 0.17 (0.04-0.36) K/mm3 Baso # (Auto) 0.02 (0.01-0.08) K/mm3 Manual Slide Review Normal smear Sodium 139 (136-145) mEq/L Potassium 3.5 (3.5-5.1) mEq/L Chloride 106 (98-107) mEq/L Carbon Dioxide 20 L (21-32) mEq/L Anion Gap 16.5 H (5-15) BUN 6 L (7-18) mg/dL Creatinine 0.6 (0.55-1.02) mg/dL Est Cr Clr Drug Dosing 119.47 mL/min Estimated GFR (MDRD) > 60 (>60) mL/min BUN/Creatinine Ratio 10.0 L (14-18) Glucose 76 (74-106) mg/dL Calcium 8.9 (8.5-10.1) mg/dL Total Bilirubin 0.3 (0.2-1.0) mg/dL AST 15 (15-37) U/L ALT 18 (14-59) U/L Alkaline Phosphatase 59 (46-116) U/L Total Protein 6.7 (6.4-8.2) g/dl Albumin 3.2 L (3.4-5.0) g/dl Globulin 3.5 gm/dL Albumin/Globulin Ratio 0.9 L (1-2) Urine Color (Yellow) Urine Appearance (Clear) Urine pH (5.0-8.0) Ur Specific [place] (1.005-1.030) Urine Protein (Negative) Urine Glucose (UA) (Negative) Urine Ketones (Negative) Urine Occult Blood (Negative) Urine Nitrite (Negative) Urine Bilirubin (Negative) Urine Urobilinogen (0.2-1.0) Ur Leukocyte Esterase (Negative) Urine RBC (0-5) /hpf Urine WBC (0-5) /hpf Ur Squamous Epith Cells (0-5) /hpf Urine Bacteria (FEW) /hpf Urine Mucus (FEW) /hpf Blood Type O POSITIVE 10/21/19 Range/Units 15:06 WBC (3.98-10.04) K/mm3 RBC (3.98-5.22) M/mm3 Hgb (11.2-15.7) gm/dl Hct (34.1-44.9) % MCV (79.4-94.8) fl MCH (25.6-32.2) pg MCHC (32.2-35.5) g/dl RDW Std Deviation (36.4-46.3) fL Plt Count (182-369) K/mm3 MPV (9.4-12.3) fl Neut % (Auto) (34.0-71.1) % Lymph % (Auto) (19.3-51.7) % [place] % (Auto) (4.7-12.5) % Eos % (Auto) (0.7-5.8) Baso % (Auto) (0.1-1.2) % Neut # (Auto) (1.56-6.13) K/mm3 Lymph # (Auto) (1.18-3.74) K/mm3 [place] # (Auto) (0.24-0.36) K/mm3 Eos # (Auto) (0.04-0.36) K/mm3 Baso # (Auto) (0.01-0.08) K/mm3 Manual Slide Review Sodium (136-145) mEq/L Potassium (3.5-5.1) mEq/L Chloride (98-107) mEq/L Carbon Dioxide (21-32) mEq/L Anion Gap (5-15) BUN (7-18) mg/dL Creatinine (0.55-1.02) mg/dL Est Cr Clr Drug Dosing mL/min Estimated GFR (MDRD) (>60) mL/min BUN/Creatinine Ratio (14-18) Glucose (74-106) mg/dL Calcium (8.5-10.1) mg/dL Total Bilirubin (0.2-1.0) mg/dL AST (15-37) U/L ALT (14-59) U/L Alkaline Phosphatase (46-116) U/L Total Protein (6.4-8.2) g/dl Albumin (3.4-5.0) g/dl Globulin gm/dL Albumin/Globulin Ratio (1-2) Urine Color Yellow (Yellow) Urine Appearance Clear (Clear) Urine pH 6.0 (5.0-8.0) Ur Specific [place] 1.020 (1.005-1.030) Urine Protein Negative (Negative) Urine Glucose (UA) Negative (Negative) Urine Ketones 4+ H (Negative) Urine Occult Blood Negative (Negative) Urine Nitrite Negative (Negative) Urine Bilirubin Negative (Negative) Urine Urobilinogen 0.2 (0.2-1.0) Ur Leukocyte Esterase Negative (Negative) Urine RBC Not seen (0-5) /hpf Urine WBC 0-5 (0-5) /hpf Ur Squamous Epith Cells 0-5 (0-5) /hpf Urine Bacteria Not seen (FEW) /hpf Urine Mucus Not seen (FEW) /hpf Blood Type Meds: Medications Discontinued Medications Generic Name Dose Route Start Last Admin Trade Name Stormy PRN Reason Stop Dose Admin Sodium Chloride 1,000 mls @ 999 mls/hr 10/21/19 15:48 10/21/19 16:02 Normal Saline IV 10/21/19 16:48 999 mls/hr ONETIME ONE Administration Sodium Chloride 10 ml 10/21/19 14:08 10/21/19 16:02 Saline Flush FLUSH 10 ml ASDIRECTED PRN Administration Keep Vein Open - Re-Assessments/Exams Free Text/Narrative Re-Assessment/Exam: 10/21/19 14:51 Patient presents to the ED for the evaluation of vaginal bleeding and cramping during . Will check some labs, OB ultrasound, we did get heart tones at 160 bpm. 10/21/19 15:38 Patient's blood work has resulted, white blood cell count is mildly elevated 11.17, but she is and will chalk this up to that. Metabolic panel shows slight dehydration of anion gap elevated at 16.7. Urine has 4+ ketonuria , but no obvious infection. The patient's ultrasound demonstrates a fetus that measures around 18 weeks 1 day currently in breech, heart rate is 152 bpm. There were no other complicating processes seen by the ultrasound at this time that would explain the patient's vaginal bleeding. 10/21/19 16:38 I did go over findings of the ultrasound with Dr. Slade, our REGISTERED MAIL CLERK on-call, and he agrees her no other emergent considerations at today's visit she can take general precautions and follow-up with OB provider sometime this week for re- evaluation. Departure - Departure Time of Disposition: 16:38 Disposition: Home, Self-Care 01 Condition: Fair Clinical Impression: Vaginal bleeding in patient at less than 20 weeks gestation - Discharge Information *PRESCRIPTION DRUG MONITORING PROGRAM REVIEWED*: No *COPY OF PRESCRIPTION DRUG MONITORING REPORT IN PATIENT DARLYN: No Instructions: Vaginal Bleeding During , Second Trimester, [id number] Referrals: Dbebie Ayala MD [Primary Care Provider] - Forms: ED Department Discharge Additional Instructions: You were evaluated in the ER today regarding your abdominal pain/vaginal bleeding in . You did have some labs drawn, and these were within normal limits, your blood type is O+. Your ultrasound demonstrated a normal, breech presenting fetus with a heart rate of 157 bpm. Recommend that you do not lift anything heavier than a gallon of milk (5 lbs), do not engage in sexual activities, try to get as much pelvic rest as possible for the next few days. Please try not to exert yourself, rest and relax, and take it easy. If you are bleeding through more than 1-2 maxi pads every couple hours, this would be cause for concern to return to the ER for immediate management. Please follow up with your REGISTERED MAIL CLERK sometime this midweek, or at your next appointment if they do not deem a sooner appointment warranted. Please return to the ED at any time if your symptoms change or worsen. Sepsis Event Note - Evaluation Sepsis Screening Result: No Definite Risk - Focused Exam Vital Signs: Vital Signs Temp Pulse Resp BP Pulse Ox 10/21/19 13:41 99.0 F 80 20 107/66 99 Date Exam was Performed: 10/21/19 Time Exam was Performed: 22:19 - My Orders Last 24 Hours: My Active Orders 10/21/19 14:08 Peripheral IV Insertion Adult [OM.PC] Stat 10/21/19 14:09 Peripheral IV Care [RC] . DIRECTED - Assessment/Plan Last 24 Hours: My Active Orders 10/21/19 14:08 Peripheral IV Insertion Adult [OM.PC] Stat 10/21/19 14:09 Peripheral IV Care [RC] . DIRECTED
--- NOTE | 2019-10-21 15:25 | US ---
Limited obstetrical ultrasound: Multiple real-time images were obtained transabdominally. Comparison: No previous study for current . Dates: Current ultrasound: IRVIN 03/22/20, gestational age 18 weeks 1 day presentation: Breech Placenta: Anterior with no findings of placenta previa, no abruption Amniotic fluid: DENNIS 10.7 cm Measurements: BPD: 4.03 cm - 18 weeks 2 days Head circumference: 14.84 cm - 18 weeks 0 days Abdominal circumference: 12.68 cm - 18 weeks 2 days Femur length: 2.53 cm - 17 weeks 5 days Estimated weight: 218 g (0 lbs. 8 oz.), estimated weight is 62nd percentile Heart rate: 152 bpm Cervical length: 3.8 cm Impression: 1. Single intrauterine fetus is seen currently breech in presentation. Dates as noted above. 2. No complicating process is seen by ultrasound at this time. No etiology is identified for the patient's vaginal bleeding. Diagnostic code #1 This report was dictated in [place] Standard Time
[2019-10-21] MEDS ORDERED: Sodium Chloride 0.9% 1,000 ML IV ONE (15:48)
== END 2019-10-21 17:16 | disposition home or self-care (01) ==
LOC: JD.ED 12:59
DX: O20.9 Hemorrhage in early pregnancy, unspecified (principal); Z91.040 Latex allergy status; Z3A.18 18 weeks gestation of pregnancy
CPT/HCPCS: 36415; 76815; 80053; 81001; 85025; 86900; 86901; 96360; 99284; J7030; 99283

== ENCOUNTER 2020-03-23 13:52 | Inpatient (IN) | payer BC ==
[2020-03-23] MEDS ORDERED: Ondansetron 4 MG/2 ML SDV IVPUSH PRN (13:58)
[2020-03-23] MEDS ORDERED: Ampicillin 2 GM in Sodium Chloride 0.9% 100 ML IV ONE (13:58)
[2020-03-23] MEDS ORDERED: Sodium Chloride 0.9% 10 ML Syringe FLUSH PRN (13:58)
[2020-03-23] MEDS ORDERED: Nalbuphine 10 MG/ML Syringe IVPUSH PRN (13:58)
[2020-03-23] MEDS ORDERED: Oxytocin/Lactated Ringers 10 UNIT/1,000 ML BAG IV SCH ×2 (14:00→19:45)
--- NOTE | 2020-03-23 14:01 | PCM.LDHP ---
L&D History of Present Illness - General Date of Service: 03/23/20 Admit Problem/Dx: Patient Status Order with Admit Dx/Problem 03/23/20 13:58 Patient Status [ADT] Routine Admission Diagnosis/Problem Admission Diagnosis/Problem Normal in third trimester Source of Information: Patient History Limitations: Reports: No Limitations - History of Present Illness Introduction:: Patient is a 29 y/o at 39 5/7 wks who presents for SROM. Occurred about 1 hour ago. No significant contractions since. Doing well otherwise. 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 baby girl named Cole Chavez Hematologic History: Reports: Blood Transfusion(s) - Past Surgical History HEENT Surgical History: Reports: Oral Surgery, Tonsillectomy Female Surgical History: Reports: D&C Social & Family History - Family History Family Medical History: Noncontributory - Tobacco Use Smoking Status *Q: Never Smoker - Caffeine Use Caffeine Use: Reports: Coffee, Soda, Tea - Alcohol Use Alcohol Use History: No - Recreational Drug Use Recreational Drug Use: No - Living Situation & Occupation Living situation: Reports: Occupation: Employed H&P Review of Systems - Review of Systems: Review Of Systems: See Below General: Reports: No Symptoms Pulmonary: Reports: No Symptoms Cardiovascular: Reports: No Symptoms Gastrointestinal: Reports: No Symptoms Genitourinary: Reports: No Symptoms Musculoskeletal: Reports: No Symptoms Psychiatric: Reports: No Symptoms Neurological: Reports: No Symptoms L&D Exam - Exam Exam: See Below - OB Specific Contraction Intensity: Irritability Movement: Active Heart Tones: Present Heart Tones per Min: 140 Heart Rate (FHR) Variability: Moderate (6-25 bmp) Presentation: Vertex - Mcgovenr Score Mcgovern Score Cervix Position: Posterior Mcgovern Score Consistency: Soft Mcgovern Score Effacement: 51-70% Mcgovern Score Dilation: 1-2 cm Mcgovern Score 's Station: -2 Mcgovern Score Total: 6 - Exam General: Alert, Oriented, Cooperative Lungs: Clear to Auscultation, Normal Respiratory Effort Cardiovascular: Regular Rate, Regular Rhythm GI/Abdominal Exam: Soft, Non-Tender Genitourinary: Normal external exam Extremities: Normal Inspection Skin: Warm, Dry, Intact - Patient Data Result Diagrams: 03/23/20 14:15 - Problem List (1) 39 weeks gestation of SNOMED Code(s): 78309491 ICD Code: Z3A.39 - 39 WEEKS GESTATION OF Status: Acute Current Visit: Yes (2) Spontaneous rupture of amniotic membranes SNOMED Code(s): 457094827 ICD Code: [id number] - Status: Acute Current Visit: Yes (3) GBS (group B Streptococcus carrier), +RV culture, currently SNOMED Code(s): 1324170636893, [id number], 2507872499186 ICD Code: O99.820 - STREPTOCOCCUS B CARRIER STATE COMPLICATING Status: Acute Current Visit: No Problem List Initiated/Reviewed/Updated: Yes Orders Last 24hrs: Active Orders 24 hr Category Date Time Status Patient Status [ADT] Routine ADT 03/23/20 13:58 Ordered Activity as Tolerated [RC] PFP Care 03/23/20 13:58 Ordered Communication Order [RC] ASDIRECTED Care 03/23/20 13:58 Ordered Heart Tones [RC] ASDIRECTED Care 03/23/20 13:58 Ordered Non Stress Test [RC] PER UNIT ROUTINE Care 03/23/20 13:58 Ordered Notify Provider [RC] PFP Care 03/23/20 13:58 Ordered Notify Provider [RC] PRN Care 03/23/20 13:58 Ordered Peripheral IV Care [RC] . DIRECTED Care 03/23/20 13:58 Ordered Vital Signs [RC] PER UNIT ROUTINE Care 03/23/20 13:58 Ordered Regular Diet [DIET] Diet 03/23/20 Dinner Ordered CBC W/O DIFF,HEMOGRAM [HEME] Routine Lab 03/23/20 13:58 Ordered CORONAVIRUS COVID-19 ASHU [MOLEC] Routine Lab 03/23/20 13:58 Ordered RAPID PLASMA REAGIN,RPR [CHEM] Routine Lab 03/23/20 13:58 Ordered TYPE AND SCREEN [BBK] Routine Lab 03/23/20 13:58 Ordered Ampicillin 1 gm Med 03/23/20 14:00 Ordered Sodium Chloride 0.9% [Normal Saline] 100 ml IV Q4H Ampicillin 2 gm Med 03/23/20 13:58 Ordered Sodium Chloride 0.9% [Normal Saline] 100 ml IV ONETIME Lactated Ringers [Ringers, Lactated] 1,000 ml Med 03/23/20 14:00 Ordered IV ASDIRECTED Nalbuphine [Nubain] Med 03/23/20 13:58 Ordered 10 mg IVPUSH Q2H PRN Ondansetron [Zofran] Med 03/23/20 13:58 Ordered 4 mg IVPUSH Q4H PRN Oxytocin/Lactated Ringers [Pitocin in LR 10 Units/1,000 Med 03/23/20 14:00 Ordered ML] 10 unit in 1,000 ml IV .CONTINUOUS Sodium Chloride 0.9% [Saline Flush] Med 03/23/20 13:58 Ordered 10 ml FLUSH ASDIRECTED PRN Electronic Heart Tones Ext w TOCO [WOMSER] Oth 03/23/20 13:58 Ordered Routine Electronic Heart Tones Internal [WOMSER] Per Unit Oth 03/23/20 13:58 Ordered Routine Peripheral IV Insertion Adult [OM.PC] Routine Oth 03/23/20 13:58 Ordered Resuscitation Status Routine Resus Stat 03/23/20 13:58 Ordered Assessment/Plan Comment:: * Labs done * GBS positive, start ampicillin * Pitocin for augmentation if needed, will monitor for now * Pain management per patient preference * Anticipate
[2020-03-23] MEDS ORDERED: Ampicillin 2 GM AdvVial IV ONE (14:26)
[2020-03-23] MEDS: Lactated Ringers 1,000 ML IV SCH ×3 (14:32→23:25)
[2020-03-23] MEDS: Ampicillin 1 GM in Sodium Chloride 0.9% 100 ML IV SCH ×2 (18:20→22:25)
[2020-03-23] MEDS ORDERED: diphenhydrAMINE 50 MG/ML SDV IVPUSH PRN (18:25)
[2020-03-23] MEDS ORDERED: fentaNYL 100 MCG/2 ML SDV EPIDUR PRN (18:25)
[2020-03-23] MEDS ORDERED: Bupivacaine/fentaNYL/NS 100 ML Bag EPIDUR PRN (18:25)
[2020-03-23] MEDS ORDERED: ePHEDrine 50 MG/ML SDV IVPUSH PRN (18:25)
--- NOTE | 2020-03-23 18:32 | PCM.PREANE ---
Preanesthetic Assessment - Procedure Proposed Procedure: lester - Anesthesia/Transfusion/Family Hx Anesthesia History: Prior Anesthesia Without Reaction Family History of Anesthesia Reaction: No Transfusion History: Prior Transfusion Without Reaction Intubation History: Unknown - Review of Systems General: No Symptoms Pulmonary: No Symptoms Cardiovascular: No Symptoms Gastrointestinal: No Symptoms Neurological: No Symptoms Other: Reports: Depression, Anxiety - Physical Assessment Vital Signs: 107 98.2 15 128/87 Height: 5 ft 4 in Weight: 84.731 kg ASA Class: 2 Mental Status: Alert & Oriented x3 Airway Class: Mallampati = 1 Dentition: Reports: Normal Dentition Thyro-Mental Finger Breadths: 3 Mouth Opening Finger Breadths: 3 ROM/Head Extension: Full Lungs: Clear to Auscultation, Normal Respiratory Effort Cardiovascular: Regular Rate, Regular Rhythm - Lab Values: Laboratory Last Values WBC 10.26 K/mm3 (3.98-10.04) H 03/23/20 14:15 RBC 4.38 M/mm3 (3.98-5.22) 03/23/20 14:15 Hgb 11.7 gm/dl (11.2-15.7) 03/23/20 14:15 Hct 36.9 % (34.1-44.9) 03/23/20 14:15 MCV 84.2 fl (79.4-94.8) D 03/23/20 14:15 MCH 26.7 pg (25.6-32.2) 03/23/20 14:15 MCHC 31.7 g/dl (32.2-35.5) L 03/23/20 14:15 RDW Std Deviation 42.6 fL (36.4-46.3) 03/23/20 14:15 Plt Count 204 K/mm3 (182-369) 03/23/20 14:15 MPV 11.8 fl (9.4-12.3) 03/23/20 14:15 COVID-19 (ASHU) Negative (NEGATIVE) 03/23/20 14:15 Blood Type O POSITIVE 03/23/20 14:15 Gel Antibody Screen Negative 03/23/20 14:15 - Allergies Allergies/Adverse Reactions: Allergies Allergy/AdvReac Type Severity Reaction Status Date / Time latex Allergy Swollen Verified 03/23/20 14:25 Eyes - Blood Blood Available: No - Acknowledgements Anesthesia Type Planned: Epidural Pt an Appropriate Candidate for the Planned Anesthesia: Yes Alternatives and Risks of Anesthesia Discussed w Pt/Guardian: Yes Pt/Guardian Understands and Agrees with Anesthesia Plan: Yes PreAnesthesia Questionnaire Cardiovascular History: Reports: None Respiratory History: Reports: None Gastrointestinal History: Reports: GERD 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 baby girl named Cole Chavez Psychiatric History: Reports: Anxiety Hematologic History: Reports: Blood Transfusion(s) - Past Surgical History HEENT Surgical History: Reports: Oral Surgery Female Surgical History: Reports: D&C - SUBSTANCE USE Smoking Status *Q: Never Smoker Tobacco Use Within Last Twelve Months: No Second Hand Smoke Exposure: No Days Per Week of Alcohol Use: 0 Recreational Drug Use History: No - HOME MEDS Home Medications: Home Meds Pnv No.95/Ferrous Fum/Folic AC [ Tablet] 1 tab PO DAILY 02/27/17 [History] Doxylamine Succinate [Unisom Sleep Aid] 25 mg PO BEDTIME PRN 03/20/20 [History] Sertraline [Zoloft] 50 mg PO DAILY 03/20/20 [History] - CURRENT (IN HOUSE) MEDS Current Meds: Current Medications Ampicillin Sodium 1 gm/ Sodium (Chloride) 100 mls @ 200 mls/hr IV Q4H MARTELL Oxytocin/Lactated Ringer's (Pitocin In Lr 10 Units/1,000 Ml) 10 unit in 1,000 mls @ 500 mls/hr IV .CONTINUOUS MARTELL Lactated Ringer's (Ringers, Lactated) 1,000 mls @ 100 mls/hr IV ASDIRECTED MARTELL Last Admin: 03/23/20 14:32 Dose: 100 mls/hr Documented by: Nalbuphine HCl (Nubain) 10 mg IVPUSH Q2H PRN PRN Reason: Pain Ondansetron HCl (Zofran) 4 mg IVPUSH Q4H PRN PRN Reason: Nausea/Vomiting Sodium Chloride (Saline Flush) 10 ml FLUSH ASDIRECTED PRN PRN Reason: Keep Vein Open Discontinued Medications Ampicillin Sodium (Ampicillin) Confirm Administered Dose 2 gm IV .STK-MED ONE Stop: 03/23/20 14:27 Last Admin: 03/23/20 14:33 Dose: Not Given Documented by: Ampicillin Sodium 2 gm/ Sodium (Chloride) 100 mls @ 200 mls/hr IV ONETIME ONE Stop: 03/23/20 14:27 Last Admin: 03/23/20 14:31 Dose: 200 mls/hr Documented by:
[2020-03-24] MEDS ORDERED: Lidocaine 1.5% with EPINEPHrine 1:200,000 5 ML Amp ONE
[2020-03-24] MEDS ORDERED: Bupivacaine 0.25% 10 ML SDV ONE
[2020-03-24] MEDS ORDERED: Misoprostol 200 MCG Tab ONE (01:14)
[2020-03-24] MEDS ORDERED: Misoprostol 100 MCG Tab PO ONE (01:15)
[2020-03-24] MEDS ORDERED: Methylergonovine 0.2 MG/1 ML Amp ONE (01:17)
[2020-03-24] MEDS ORDERED: Carboprost Tromethamine 250 MCG/1 ML Amp ONE (01:28)
[2020-03-24] MEDS ORDERED: Carboprost Tromethamine 250 MCG/1 ML Amp IM ONE (01:41)
[2020-03-24] MEDS ORDERED: Methylergonovine 0.2 MG/1 ML Amp IM STA (01:41)
--- NOTE | 2020-03-24 01:44 | PCM.DEL ---
L & D Note - General Info Date of Service: 03/24/20 - Delivery Note Labor: Augmented by Oxytocin Delivery Outcome: Livebirth Delivery Method: Spontaneous Vaginal Delivery-Single Delivery Mode: Spontaneous Presentation: Right Occiput Anterior (ENEDELIA) Nuchal Cord: None Anesthesia Type: Epidural Amniotic Fluid Description: Clear Episiotomy Type: None Laceration: 1st Degree Suture type: Vicryl Suture size: 2-0 Placenta: Intact, Spontaneous Cord: 3 Vessels Estimated Blood Loss: 600 Resuscitation Needed: Yes : Bulb Syringe, Stimulated, Warmed, [place] Used, Warmer Used Delivery Comments (Free Text/Narrative):: Patient found to be complete and began pushing. With maternal pushing effort head delivered from an ENEDELIA presentation. No nuchal cord present. Gentle downward traction shoulders and body delivered. handed to maternal abdomen. Cord clamped and cut. Cord blood obtained. Placenta allowed time to separate and expelled intact. Poor tone noted after this. Patient given 600 buckle Cytotec, then 0.2 mg Methergine, then 250 mcg of Hemabate. This was paired with sweep of the lower uterine segment and also emptying of the bladder. Eventually better uterine tone noted. Small first degree noted which was repaired with a 2-0 in typical fashion - General Info Date of Service: 03/24/20 - Patient Data Vitals - Most Recent: Last Vital Signs Temp 36.8 C 03/23/20 13:58 Pulse 107 H 03/23/20 13:58 Resp 16 03/23/20 13:58 BP 128/87 03/23/20 13:58 Pulse Ox Weight - Most Recent: 84.731 kg I&O - Last 24 Hours: Intake & Output 03/23/20 03/23/20 03/24/20 14:59 22:59 06:59 Intake Total 100 Balance 100 Lab Results Last 24 Hours: Laboratory Results - last 24 hr 03/23/20 03/23/20 03/23/20 Range/Units 14:15 14:15 14:15 WBC 10.26 H (3.98-10.04) K/mm3 RBC 4.38 (3.98-5.22) M/mm3 Hgb 11.7 (11.2-15.7) gm/dl Hct 36.9 (34.1-44.9) % MCV 84.2 D (79.4-94.8) fl MCH 26.7 (25.6-32.2) pg MCHC 31.7 L (32.2-35.5) g/dl RDW Std Deviation 42.6 (36.4-46.3) fL Plt Count 204 (182-369) K/mm3 MPV 11.8 (9.4-12.3) fl COVID-19 ([facility]) Negative (NEGATIVE) Blood Type O POSITIVE Gel Antibody Screen Negative Med Orders - Current: Current Medications Carboprost Tromethamine (Hemabate Ds) 250 mcg IM ONETIME ONE Stop: 03/24/20 01:42 Diphenhydramine HCl (Benadryl) 25 mg IVPUSH Q6H PRN PRN Reason: pruritis Ephedrine Sulfate (Ephedrine Sulfate) 5 mg IVPUSH ASDIRECTED PRN PRN Reason: Hypotension Fentanyl (Sublimaze) 100 mcg EPIDUR Q3H PRN PRN Reason: Pain Fentanyl/Bupivacaine HCl (Fentanyl/Bupivacaine/Ns 2 Mcg-0.125% 100 Ml) 100 ml EPIDUR ASDIRECTED PRN PRN Reason: Pain Ampicillin Sodium 1 gm/ Sodium (Chloride) 100 mls @ 200 mls/hr IV Q4H MARTELL Last Admin: 03/23/20 22:25 Dose: 200 mls/hr Documented by: Oxytocin/Lactated Ringer's (Pitocin In Lr 10 Units/1,000 Ml) 10 unit in 1,000 mls @ 500 mls/hr IV .CONTINUOUS MARTELL Lactated Ringer's (Ringers, Lactated) 1,000 mls @ 100 mls/hr IV ASDIRECTED MARTELL Last Infusion: 03/23/20 22:41 Dose: 999 mls/hr Documented by: Oxytocin/Lactated Ringer's (Pitocin In Lr 10 Units/1,000 Ml) 10 unit in 1,000 mls @ 12 mls/hr IV TITRATE MARTELL; Protocol Last Titration: 03/23/20 22:55 Dose: 6 munits/min, 36 mls/hr Documented by: Methylergonovine Maleate (Methergine) 0.2 mg IM NOW STA Stop: 03/24/20 01:42 Nalbuphine HCl (Nubain) 10 mg IVPUSH Q2H PRN PRN Reason: Pain Ondansetron HCl (Zofran) 4 mg IVPUSH Q4H PRN PRN Reason: Nausea/Vomiting Sodium Chloride (Saline Flush) 10 ml FLUSH ASDIRECTED PRN PRN Reason: Keep Vein Open Discontinued Medications Ampicillin Sodium (Ampicillin) Confirm Administered Dose 2 gm IV .STK-MED ONE Stop: 03/23/20 14:27 Last Admin: 03/23/20 14:33 Dose: Not Given Documented by: Carboprost Tromethamine (Hemabate Ds) Confirm Administered Dose 250 mcg .ROUTE .STK-MED ONE Stop: 03/24/20 01:29 Ampicillin Sodium 2 gm/ Sodium (Chloride) 100 mls @ 200 mls/hr IV ONETIME ONE Stop: 03/23/20 14:27 Last Admin: 03/23/20 14:31 Dose: 200 mls/hr Documented by: Methylergonovine Maleate (Methergine) Confirm Administered Dose 0.2 mg .ROUTE .STK-MED ONE Stop: 03/24/20 01:18 Misoprostol (Cytotec) Confirm Administered Dose 600 mcg .ROUTE .STK-MED ONE Stop: 03/24/20 01:15 Tranexamic Acid (Cyklokapron) Confirm Administered Dose 1,000 mg .ROUTE .STK-MED ONE Stop: 03/24/20 01:33 - Problem List & Annotations (1) 39 weeks gestation of SNOMED Code(s): 51681214 Code(s): Z3A.39 - 39 WEEKS GESTATION OF Status: Acute Current Visit: Yes (2) Spontaneous rupture of amniotic membranes SNOMED Code(s): 321296885 Code(s): HAU4966 - Status: Acute Current Visit: Yes (3) GBS (group B Streptococcus carrier), +RV culture, currently SNOMED Code(s): 5878693823405, 076454490, 3985576532499 Code(s): O99.820 - STREPTOCOCCUS B CARRIER STATE COMPLICATING Status: Acute Current Visit: No (4) hemorrhage SNOMED Code(s): 72228827 Code(s): O72.1 - OTHER IMMEDIATE HEMORRHAGE Status: Acute Current Visit: No Qualifiers: hemorrhage type: other immediate Qualified Code(s): O72.1 - Other immediate hemorrhage (5) Vaginal delivery SNOMED Code(s): 279376273 Code(s): O80 - ENCOUNTER FOR FULL-TERM UNCOMPLICATED DELIVERY Status: Acute Current Visit: No - Problem List Review Problem List Initiated/Reviewed/Updated: Yes - My Orders Last 24 Hours: My Active Orders 03/23/20 13:58 Patient Status [ADT] Routine Activity as Tolerated [RC] PFP Communication Order [RC] ASDIRECTED Heart Tones [RC] ASDIRECTED Non Stress Test [RC] PER UNIT ROUTINE Notify Provider [RC] PFP Notify Provider [RC] PRN Peripheral IV Care [RC] . DIRECTED Vital Signs [RC] PER UNIT ROUTINE Nalbuphine [Nubain] 10 mg IVPUSH Q2H PRN Ondansetron [Zofran] 4 mg IVPUSH Q4H PRN Sodium Chloride 0.9% [Saline Flush] 10 ml FLUSH ASDIRECTED PRN Electronic Heart Tones Ext w TOCO [WOMSER] Routine Electronic Heart Tones Internal [WOMSER] Per Unit Routine Peripheral IV Insertion Adult [OM.PC] Routine Resuscitation Status Routine 03/23/20 14:00 Lactated Ringers [Ringers, Lactated] 1,000 ml IV ASDIRECTED Oxytocin/Lactated Ringers [Pitocin in LR 10 Units/1,000 ML] 10 unit in 1,000 ml IV .CONTINUOUS 03/23/20 14:15 RAPID PLASMA REAGIN,RPR [CHEM] Routine 03/23/20 Dinner Regular Diet [DIET] 03/23/20 18:00 Ampicillin 1 gm Sodium Chloride 0.9% [Normal Saline] 100 ml IV Q4H 03/23/20 19:45 Oxytocin/Lactated Ringers [Pitocin in LR 10 Units/1,000 ML] 10 unit in 1,000 ml IV TITRATE 03/24/20 01:41 Carboprost Tromethamine [Hemabate DS] 250 mcg IM ONETIME ONE Methylergonovine [Methergine] 0.2 mg IM NOW STA 03/24/20 01:42 Patient Status Manage Transfer [TRANSFER] Routine - Assessment Assessment:: PPD#0 - Plan Plan:: * Routine cares * Breast feeding * Discharge home in 1-2 days
[2020-03-24] MEDS ORDERED: Benzocaine/Menthol 20%-0.5% Spray 56 GM Canister TOP PRN (01:58)
[2020-03-24] MEDS ORDERED: Witch Hazel Medicated Pads 40/Jar TOP PRN (01:58)
[2020-03-24] MEDS ORDERED: Docusate Sodium 100 MG Cap PO PRN (01:58)
[2020-03-24] MEDS ORDERED: Ondansetron 4 MG/2 ML SDV ONE (02:07)
[2020-03-24] MEDS ORDERED: Oxytocin/Lactated Ringers 10 UNIT/1,000 ML BAG IV ONE (02:24)
[2020-03-24] MEDS: Acetaminophen 325 MG Tab PO PRN ×2 (02:55→19:27)
[2020-03-24] MEDS: Ibuprofen 600 MG Tab PO PRN ×2 (02:56→17:28)
--- NOTE | 2020-03-24 09:29 | PCM48HPAN ---
Post Anesthesia Note - EVALUATION WITHIN 48HRS OF ANESTHETIC Vital Signs in Normal Range: Yes Patient Participated in Evaluation: Yes Respiratory Function Stable: Yes Airway Patent: Yes Cardiovascular Function Stable: Yes Hydration Status Stable: Yes Pain Control Satisfactory: Yes Nausea and Vomiting Control Satisfactory: Yes Mental Status Recovered: Yes Vital Signs: Last Vital Signs Temp 36.8 C 03/23/20 13:58 Pulse 107 H 03/23/20 13:58 Resp 16 03/23/20 13:58 BP 128/87 03/23/20 13:58 Pulse Ox
--- NOTE | 2020-03-25 06:15 | PCM.PNPP ---
- General Info Date of Service: 03/25/20 Functional Status: Reports: Pain Controlled, Tolerating Diet, Ambulating, Urinating - Review of Systems General: Reports: No Symptoms Pulmonary: Reports: No Symptoms Cardiovascular: Reports: No Symptoms Gastrointestinal: Reports: No Symptoms Genitourinary: Reports: No Symptoms Musculoskeletal: Reports: No Symptoms Neurological: Reports: No Symptoms - Patient Data Vital Signs - Most Recent: Last Vital Signs Temp 36.7 C 03/25/20 03:00 Pulse 70 03/25/20 03:52 Resp 16 03/25/20 03:00 BP 108/58 L 03/25/20 03:52 Pulse Ox 97 03/25/20 03:52 Weight - Most Recent: 84.731 kg I&O - Last 24 Hours: Intake & Output 03/24/20 03/24/20 03/25/20 14:59 22:59 06:59 Intake Total 360 138 Balance 360 138 Lab Results - Last 24 Hours: Laboratory Results - last 24 hr 03/23/20 Range/Units 14:15 RPR Non-reactive (NONREACTIVE) Med Orders - Current: Current Medications Acetaminophen (Tylenol) 650 mg PO Q4H PRN PRN Reason: mild pain or fever Last Admin: 03/24/20 19:27 Dose: 650 mg Documented by: Benzocaine/Menthol (Dermoplast Pain Relief [place]) 0 gm TOP ASDIRECTED PRN PRN Reason: Perineal Comfort Measure Docusate Sodium (Colace) 100 mg PO BID PRN PRN Reason: Constipation Ibuprofen (Motrin) 600 mg PO Q6H PRN PRN Reason: Mild pain or fever Last Admin: 03/24/20 17:28 Dose: 600 mg Documented by: Julius Flor ([facility]) 1 pad TOP ASDIRECTED PRN PRN Reason: Perineal Comfort Measure Discontinued Medications Ampicillin Sodium (Ampicillin) Confirm Administered Dose 2 gm IV .STK-MED ONE Stop: 03/23/20 14:27 Last Admin: 03/23/20 14:33 Dose: Not Given Documented by: Bupivacaine HCl (Sensorcaine-Mpf 0.25%) 10 ml .ROUTE .STK-MED ONE Stop: 03/24/20 00:01 Carboprost Tromethamine (Hemabate Ds) Confirm Administered Dose 250 mcg .ROUTE .STK-MED ONE Stop: 03/24/20 01:29 Last Admin: 03/24/20 05:29 Dose: Not Given Documented by: Carboprost Tromethamine (Hemabate Ds) 250 mcg IM ONETIME ONE Stop: 03/24/20 01:42 Last Admin: 03/24/20 01:42 Dose: 250 mcg Documented by: Diphenhydramine HCl (Benadryl) 25 mg IVPUSH Q6H PRN PRN Reason: pruritis Ephedrine Sulfate (Ephedrine Sulfate) 5 mg IVPUSH ASDIRECTED PRN PRN Reason: Hypotension Fentanyl (Sublimaze) 100 mcg EPIDUR Q3H PRN PRN Reason: Pain Last Admin: 03/23/20 23:30 Dose: 100 mcg Documented by: Fentanyl/Bupivacaine HCl (Fentanyl/Bupivacaine/Ns 2 Mcg-0.125% 100 Ml) 100 ml EPIDUR ASDIRECTED PRN PRN Reason: Pain Last Admin: 03/24/20 00:15 Dose: 100 ml Documented by: Ampicillin Sodium 2 gm/ Sodium (Chloride) 100 mls @ 200 mls/hr IV ONETIME ONE Stop: 03/23/20 14:27 Last Admin: 03/23/20 14:31 Dose: 200 mls/hr Documented by: Ampicillin Sodium 1 gm/ Sodium (Chloride) 100 mls @ 200 mls/hr IV Q4H MARTELL Last Admin: 03/23/20 22:25 Dose: 200 mls/hr Documented by: Oxytocin/Lactated Ringer's (Pitocin In Lr 10 Units/1,000 Ml) 10 unit in 1,000 mls @ 500 mls/hr IV .CONTINUOUS MARTELL Last Admin: 03/24/20 02:00 Dose: 500 mls/hr Documented by: Lactated Ringer's (Ringers, Lactated) 1,000 mls @ 100 mls/hr IV ASDIRECTED MARTELL Last Infusion: 03/24/20 00:00 Dose: 100 mls/hr Documented by: Oxytocin/Lactated Ringer's (Pitocin In Lr 10 Units/1,000 Ml) 10 unit in 1,000 mls @ 12 mls/hr IV TITRATE MARTELL; Protocol Last Titration: 03/24/20 01:03 Dose: 166.5 munits/min, 999 mls/hr Documented by: Oxytocin/Lactated Ringer's (Pitocin In Lr 10 Units/1,000 Ml) Confirm Administered Dose 10 unit in 1,000 mls @ as directed IV .STK-MED ONE Stop: 03/24/20 02:25 Last Admin: 03/24/20 05:26 Dose: Not Given Documented by: Lidocaine/Epinephrine (Xylocaine-Mpf 1.5% W/Epinephrine 1:200,000) 5 ml .ROUTE .STK-MED ONE Stop: 03/24/20 00:01 Methylergonovine Maleate (Methergine) Confirm Administered Dose 0.2 mg .ROUTE .STK-MED ONE Stop: 03/24/20 01:18 Last Admin: 03/24/20 05:28 Dose: Not Given Documented by: Methylergonovine Maleate (Methergine) 0.2 mg IM NOW STA Stop: 03/24/20 01:42 Last Admin: 03/24/20 01:30 Dose: 0.2 mg Documented by: Misoprostol (Cytotec) Confirm Administered Dose 600 mcg .ROUTE .STK-MED ONE Stop: 03/24/20 01:15 Last Admin: 03/24/20 05:28 Dose: Not Given Documented by: Misoprostol (Cytotec) 600 mcg PO ONETIME ONE Stop: 03/24/20 01:16 Last Admin: 03/24/20 01:15 Dose: 600 mcg Documented by: Nalbuphine HCl (Nubain) 10 mg IVPUSH Q2H PRN PRN Reason: Pain Ondansetron HCl (Zofran) 4 mg IVPUSH Q4H PRN PRN Reason: Nausea/Vomiting Last Admin: 03/24/20 02:11 Dose: 4 mg Documented by: Ondansetron HCl (Zofran) Confirm Administered Dose 4 mg .ROUTE .STK-MED ONE Stop: 03/24/20 02:08 Last Admin: 03/24/20 05:26 Dose: Not Given Documented by: Sodium Chloride (Saline Flush) 10 ml FLUSH ASDIRECTED PRN PRN Reason: Keep Vein Open Tranexamic Acid (Cyklokapron) Confirm Administered Dose 1,000 mg .ROUTE .STK-MED ONE Stop: 03/24/20 01:33 Last Admin: 03/24/20 05:29 Dose: Not Given Documented by: - Interaction Disposition, : [place] in Room with Family Interaction: Holding Infant Feeding: Attempted ; Nursed Fair/Poor Support Person: - Recovery Exam Fundal Tone: Firm Fundal Level: 2 Fingerbreadths Below Umbilicus Fundal Placement: Midline Lochia Amount: Small Lochia Color: Rubra/Red Perineum Description: Intact, Minimal Bruising/Swelling Episiotomy/Laceration: Approximated Bladder Status: Voiding Urinary Elimination: Voided - Exam General: Alert, Oriented, Cooperative GI/Abdominal Exam: Soft, Non-Tender Extremities: Normal Inspection Skin: Warm, Dry, Intact - Problem List & Annotations (1) 39 weeks gestation of SNOMED Code(s): 66484261 Code(s): Z3A.39 - 39 WEEKS GESTATION OF Status: Acute Current Visit: Yes (2) Spontaneous rupture of amniotic membranes SNOMED Code(s): 261995443 Code(s): NEL8130 - Status: Acute Current Visit: Yes (3) GBS (group B Streptococcus carrier), +RV culture, currently SNOMED Code(s): 3188977584817, 130243762, 1991595291209 Code(s): O99.820 - STREPTOCOCCUS B CARRIER STATE COMPLICATING Status: Acute Current Visit: No (4) hemorrhage SNOMED Code(s): 46280719 Code(s): O72.1 - OTHER IMMEDIATE HEMORRHAGE Status: Acute Cur rent Visit: No Qualifiers: hemorrhage type: other immediate Qualified Code(s): O72.1 - Other immediate hemorrhage (5) Vaginal delivery SNOMED Code(s): 538050710 Code(s): O80 - ENCOUNTER FOR FULL-TERM UNCOMPLICATED DELIVERY Status: Acute Current Visit: No - Problem List Review Problem List Initiated/Reviewed/Updated: Yes - My Orders Last 24 Hours: My Active Orders 03/24/20 Breakfast Regular Diet [DIET] 03/25/20 01:58 Heat Therapy [OM.PC] PRN - Assessment Assessment:: PPD#1 - Plan Plan:: * Routine cares * Breast feeding * Discharge home today vs tomorrow
--- NOTE | 2020-03-25 07:05 | PCM.DCSUM1 ---
Discharge Summary - Discharge Data Discharge Date: 03/25/20 Discharge Disposition: Home, Self-Care 01 Condition: Good - Referral to Home Health Primary Care Physician: Debbie Ayala MD - Discharge Diagnosis/Problem(s) (1) 39 weeks gestation of SNOMED Code(s): 47406076 ICD Code: Z3A.39 - 39 WEEKS GESTATION OF Status: Acute Current Visit: Yes (2) Spontaneous rupture of amniotic membranes SNOMED Code(s): 408259445 ICD Code: [id number] - Status: Acute Current Visit: Yes (3) GBS (group B Streptococcus carrier), +RV culture, currently SNOMED Code(s): 0932500201443, 867581124, 6719146562672 ICD Code: O99.820 - STREPTOCOCCUS B CARRIER STATE COMPLICATING Status: Acute Current Visit: No (4) hemorrhage SNOMED Code(s): 72956101 ICD Code: O72.1 - OTHER IMMEDIATE HEMORRHAGE Status: Acute Current Visit: No Qualifiers: hemorrhage type: other immediate Qualified Code(s): O72.1 - Other immediate hemorrhage (5) Vaginal delivery SNOMED Code(s): 954533242 ICD Code: O80 - ENCOUNTER FOR FULL-TERM UNCOMPLICATED DELIVERY Status: Acute Current Visit: No - Patient Summary/Data Complications: None Consults: None Recommended Follow-up Testing/Procedures: Follow up in 3 weeks for check Hospital Course: 29 y/o at 39 5/7 wks who presented with SROM. She was augmented with pitocin. She progressed well to complete dilation and underwent . notable for hemorrhage of 600 mcg managed with Cytotec, Hemabate, and Methergine. she did well and was discharged home on PPD#1 - Patient Instructions Diet: Regular Diet as Tolerated Activity: As Tolerated Activity, Other: Pelvic rest for 6 weeks Driving: May Drive Today Showering/Bathing: May Shower Showering/Bathing, Other: May Bathe Notify Provider of: Fever, Increased Pain, Swelling and Redness, Drainage, Nausea and/or Vomiting - Discharge Plan *PRESCRIPTION DRUG MONITORING PROGRAM REVIEWED*: No *COPY OF PRESCRIPTION DRUG MONITORING REPORT IN PATIENT DARLYN: No Home Medications: Home Meds Pnv No.95/Ferrous Fum/Folic AC [ Tablet] 1 tab PO DAILY 02/27/17 [History] Sertraline [Zoloft] 50 mg PO DAILY 03/20/20 [History] Docusate Sodium [Colace] 100 mg PO BID PRN cap 03/25/20 [Rx] Ibuprofen [Motrin] 600 mg PO Q6H PRN tablet 03/25/20 [Rx] Referrals: Debbie Ayala MD [Primary Care Provider] - (3 weeks for check - can be telehealth ) - Discharge Summary/Plan Comment DC Time >30 min.: No - Patient Data Vitals - Most Recent: Last Vital Signs Temp 36.7 C 03/25/20 03:00 Pulse 70 03/25/20 03:52 Resp 16 03/25/20 03:00 BP 108/58 L 03/25/20 03:52 Pulse Ox 97 03/25/20 03:52 Weight - Most Recent: 84.731 kg I&O - Last 24 hours: Intake & Output 03/24/20 03/25/20 03/25/20 22:59 06:59 14:59 Intake Total 138 Balance 138 Lab Results - Last 24 hrs: Laboratory Results - last 24 hr 03/23/20 Range/Units 14:15 RPR Non-reactive (NONREACTIVE) Med Orders - Current: Current Medications Acetaminophen (Tylenol) 650 mg PO Q4H PRN PRN Reason: mild pain or fever Last Admin: 03/24/20 19:27 Dose: 650 mg Documented by: Benzocaine/Menthol (Dermoplast Pain Relief [place]) 0 gm TOP ASDIRECTED PRN PRN Reason: Perineal Comfort Measure Docusate Sodium (Colace) 100 mg PO BID PRN PRN Reason: Constipation Ibuprofen (Motrin) 600 mg PO Q6H PRN PRN Reason: Mild pain or fever Last Admin: 03/24/20 17:28 Dose: 600 mg Documented by: [facility] ([facility] 1 pad TOP ASDIRECTED PRN PRN Reason: Perineal Comfort Measure Discontinued Medications Ampicillin Sodium (Ampicillin) Confirm Administered Dose 2 gm IV .STK-MED ONE Stop: 03/23/20 14:27 Last Admin: 03/23/20 14:33 Dose: Not Given Documented by: Bupivacaine HCl (Sensorcaine-Mpf 0.25%) 10 ml .ROUTE .STK-MED ONE Stop: 03/24/20 00:01 Carboprost Tromethamine (Hemabate Ds) Confirm Administered Dose 250 mcg .ROUTE .STK-MED ONE Stop: 03/24/20 01:29 Last Admin: 03/24/20 05:29 Dose: Not Given Documented by: Carboprost Tromethamine (Hemabate Ds) 250 mcg IM ONETIME ONE Stop: 03/24/20 01:42 Last Admin: 03/24/20 01:42 Dose: 250 mcg Documented by: Diphenhydramine HCl (Benadryl) 25 mg IVPUSH Q6H PRN PRN Reason: pruritis Ephedrine Sulfate (Ephedrine Sulfate) 5 mg IVPUSH ASDIRECTED PRN PRN Reason: Hypotension Fentanyl (Sublimaze) 100 mcg EPIDUR Q3H PRN PRN Reason: Pain Last Admin: 03/23/20 23:30 Dose: 100 mcg Documented by: Fentanyl/Bupivacaine HCl (Fentanyl/Bupivacaine/Ns 2 Mcg-0.125% 100 Ml) 100 ml EPIDUR ASDIRECTED PRN PRN Reason: Pain Last Admin: 03/24/20 00:15 Dose: 100 ml Documented by: Ampicillin Sodium 2 gm/ Sodium (Chloride) 100 mls @ 200 mls/hr IV ONETIME ONE Stop: 03/23/20 14:27 Last Admin: 03/23/20 14:31 Dose: 200 mls/hr Documented by: Ampicillin Sodium 1 gm/ Sodium (Chloride) 100 mls @ 200 mls/hr IV Q4H MARTELL Last Admin: 03/23/20 22:25 Dose: 200 mls/hr Documented by: Oxytocin/Lactated Ringer's (Pitocin In Lr 10 Units/1,000 Ml) 10 unit in 1,000 mls @ 500 mls/hr IV .CONTINUOUS MARTELL Last Admin: 03/24/20 02:00 Dose: 500 mls/hr Documented by: Lactated Ringer's (Ringers, Lactated) 1,000 mls @ 100 mls/hr IV ASDIRECTED MARTELL Last Infusion: 03/24/20 00:00 Dose: 100 mls/hr Documented by: Oxytocin/Lactated Ringer's (Pitocin In Lr 10 Units/1,000 Ml) 10 unit in 1,000 mls @ 12 mls/hr IV TITRATE MARTELL; Protocol Last Titration: 03/24/20 01:03 Dose: 166.5 munits/min, 999 mls/hr Documented by: Oxytocin/Lactated Ringer's (Pitocin In Lr 10 Units/1,000 Ml) Confirm Administered Dose 10 unit in 1,000 mls @ as directed IV .STK-MED ONE Stop: 03/24/20 02:25 Last Admin: 03/24/20 05:26 Dose: Not Given Documented by: Lidocaine/Epinephrine (Xylocaine-Mpf 1.5% W/Epinephrine 1:200,000) 5 ml .ROUTE .STK-MED ONE Stop: 03/24/20 00:01 Methylergonovine Maleate (Methergine) Confirm Administered Dose 0.2 mg .ROUTE .STK-MED ONE Stop: 03/24/20 01:18 Last Admin: 03/24/20 05:28 Dose: Not Given Documented by: Methylergonovine Maleate (Methergine) 0.2 mg IM NOW STA Stop: 03/24/20 01:42 Last Admin: 03/24/20 01:30 Dose: 0.2 mg Documented by: Misoprostol (Cytotec) Confirm Administered Dose 600 mcg .ROUTE .STK-MED ONE Stop: 03/24/20 01:15 Last Admin: 03/24/20 05:28 Dose: Not Given Documented by: Misoprostol (Cytotec) 600 mcg PO ONETIME ONE Stop: 03/24/20 01:16 Last Admin: 03/24/20 01:15 Dose: 600 mcg Documented by: Nalbuphine HCl (Nubain) 10 mg IVPUSH Q2H PRN PRN Reason: Pain Ondansetron HCl (Zofran) 4 mg IVPUSH Q4H PRN PRN Reason: Nausea/Vomiting Last Admin: 03/24/20 02:11 Dose: 4 mg Documented by: Ondansetron HCl (Zofran) Confirm Administered Dose 4 mg .ROUTE .STK-MED ONE Stop: 03/24/20 02:08 Last Admin: 03/24/20 05:26 Dose: Not Given Documented by: Sodium Chloride (Saline Flush) 10 ml FLUSH ASDIRECTED PRN PRN Reason: Keep Vein Open Tranexamic Acid (Cyklokapron) Confirm Administered Dose 1,000 mg .ROUTE .STK-MED ONE Stop: 03/24/20 01:33 Last Admin: 03/24/20 05:29 Dose: Not Given Documented by:
[2020-03-25] MEDS: Acetaminophen 325 MG Tab PO PRN (10:19)
[2020-03-25] MEDS: Ibuprofen 600 MG Tab PO PRN (10:20)
[2020-03-25 11:03] VITALS: BP 100/67; PULSE 97
== END 2020-03-25 11:45 | disposition home or self-care (01) | DRG 560 ==
LOC: JD.OBCHECK 13:52 → JD.OB 13:53 → JD.OBCHECK 13:57 → JD.OB 13:58 → OBSVTOIN 03-24 01:02 → JD.OB 03-24 01:03
PROVIDERS: ADMIT Obstetrics & Gynecology; ATTEND Obstetrics & Gynecology
PROC: 10E0XZZ Delivery of Products of Conception, External Approach (ICD-10-PCS; principal; 2020-03-24)
PROC: 0HQ9XZZ Repair Perineum Skin, External Approach (ICD-10-PCS; 2020-03-24)
PROC: 3E0R3BZ Introduction of Anesthetic Agent into Spinal Canal, Percutaneous Approach (ICD-10-PCS; 2020-03-24)
PROC: 00HU33Z Insertion of Infusion Device into Spinal Canal, Percutaneous Approach (ICD-10-PCS; 2020-03-24)
DX: O99.824 Streptococcus B carrier state complicating childbirth (principal); Z3A.39 39 weeks gestation of pregnancy; Z37.0 Single live birth; O72.1 Other immediate postpartum hemorrhage; Z91.040 Latex allergy status; O99.62 Diseases of the digestive system complicating childbirth; K21.9 Gastro-esophageal reflux disease without esophagitis; O70.0 First degree perineal laceration during delivery; Z11.59 Encounter for screening for other viral diseases
CPT/HCPCS: 01967; 36415; 59025; 59409; 85027; 86592; 86850; 86900; 86901; A9270-GY; J0290; J2210; J2405; J2590; J3010; J3490; J7050; J7120; U0002

== ENCOUNTER 2021-08-17 17:16 | Emergency (ER) | payer BC ==
[2021-08-17 17:41] VITALS: BP 124/64; PULSE 86
[2021-08-17] MEDS ORDERED: Sodium Chloride 0.9% 1,000 ML IV ONE (18:44)
--- NOTE | 2021-08-17 18:44 | EDM.PDOC ---
ED HPI GENERAL MEDICAL PROBLEM - General Chief Complaint: Abdominal Pain Stated Complaint: LOWER STOMACH PAIN ([id number] ) Time Seen by Provider: 08/17/21 18:31 Source of Information: Reports: Patient History Limitations: Reports: No Limitations - History of Present Illness INITIAL COMMENTS - FREE TEXT/NARRATIVE: Presents with lower abdominal pain. Started yesterday did not have an appetite for lunch and then did not eat much for supper pain is more crampy fairly constant did not sleep very well last night secondary to the pain she has had some watery diarrhea but no blood no vomiting but nauseated. She currently is 18 weeks with her fifth she has 2 live children 1 age 1 the other is 2. No fevers chills or sweats mild headache no runny nose or sore throat no coughing cold symptoms chest pain or breathing problems. Did not really eat much not hungry today. No history of any intra-abdominal surgeries except for D&C with one of her old that was at 28 weeks. Patient has a hard time finding comfortable position nothing really makes it better or worse. No burning pain or blood in the urine no vaginal discharge or cramping no back pain or flank tenderness. 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 baby girl named Cole Chavez Psychiatric History: Reports: Anxiety Hematologic History: Reports: Blood Transfusion(s) - Past Surgical History HEENT Surgical History: Reports: Oral Surgery Female Surgical History: Reports: D&C Social & Family History - Family History Family Medical History: No Pertinent Family History - Caffeine Use Caffeine Use: Reports: Coffee, Soda, Tea - Living Situation & Occupation Living situation: Reports: Occupation: Employed ED ROS GENERAL - Review of Systems Review Of Systems: See Below Constitutional: Reports: Decreased Appetite. Denies: Fever, Chills, Diaphoresis HEENT: Denies: Rhinitis, Throat Pain Respiratory: Reports: No Symptoms. Denies: Shortness of Breath, Pleuritic Chest Pain, Cough Cardiovascular: Denies: Chest Pain, Lightheadedness, Syncope GI/Abdominal: Reports: Abdominal Pain, Diarrhea, Decreased Appetite, Nausea. Denies: Black Stool, Bloody Stool, Distension, Vomiting : Denies: Dysuria, Flank Pain, Frequency, Hematuria, Pain Musculoskeletal: Denies: Back Pain Skin: Reports: No Symptoms Neurological: Reports: No Symptoms Psychiatric: Reports: No Symptoms ED EXAM, GI/ABD - Physical Exam Exam: See Below Exam Limited By: No Limitations General Appearance: Alert, WD/WN, No Apparent Distress, Moderate Distress Nose: Normal Inspection, Normal Mucosa Throat/Mouth: Normal Inspection, Normal Lips, Normal Oropharynx Head: Atraumatic Neck: Supple Respiratory/Chest: No Respiratory Distress, Lungs Clear, Normal Breath Sounds Cardiovascular: Normal Peripheral Pulses, Regular Rate, Rhythm, No Edema GI/Abdominal Exam: Normal Bowel Sounds, Soft, Tender, Mass, Other (Has pain in the left upper quadrant right upper quadrant epigastric and right lower quadrant areas. No flank tenderness noted no rebound or rigidity no referred pain.). No: Guarding, Rebound, Abnormal Bowel Sounds Back Exam: Normal Inspection Neurological: Alert, Oriented Psychiatric: Normal Affect Skin Exam: Warm, Dry Course - Vital Signs Text/Narrative:: Abdominal pain in 18 weeks of rule out acute cholecystitis gastritis gastroenteritis does not seem like a bowel obstruction rule out acute appendicitis. Urinary tract infection still a possibility, no lower pelvic cramping no vaginal bleeding. Last Recorded V/S: Last Vital Signs Temp 100.1 F 08/17/21 17:39 Pulse 86 08/17/21 17:39 Resp 20 08/17/21 17:39 BP 124/64 08/17/21 17:39 Pulse Ox 100 08/17/21 17:39 - Orders/Labs/Meds Orders: Active Orders 24 hr Category Date Time Status Communication Order [RC] ASDIRECTED Care 08/17/21 18:24 Active Communication Order [RC] ASDIRECTED Care 08/17/21 18:24 Active Communication Order [RC] ASDIRECTED Care 08/17/21 18:24 Active Communication Order [RC] PER UNIT ROUTINE Care 08/17/21 18:24 Active Abdomen Comp [US] Stat Exams 08/17/21 18:45 Taken Labs: Laboratory Tests 08/17/21 08/17/21 08/17/21 Range/Units 18:57 18:57 19:40 WBC 9.24 (3.98-10.04) K/mm3 RBC 4.70 (3.98-5.22) M/mm3 Hgb 14.2 D (11.2-15.7) gm/dl Hct 42.7 (34.1-44.9) % MCV 90.9 D (79.4-94.8) fl MCH 30.2 (25.6-32.2) pg MCHC 33.3 (32.2-35.5) g/dl RDW Std Deviation 49.5 H (36.4-46.3) fL Plt Count 166 L (182-369) K/mm3 MPV 10.1 (9.4-12.3) fl Neut % (Auto) 85.3 H (34.0-71.1) % Lymph % (Auto) 9.5 L (19.3-51.7) % [place] % (Auto) 4.1 L (4.7-12.5) % Eos % (Auto) 0.9 (0.7-5.8) Baso % (Auto) 0.1 (0.1-1.2) % Neut # (Auto) 7.88 H (1.56-6.13) K/mm3 Lymph # (Auto) 0.88 L (1.18-3.74) K/mm3 [place] # (Auto) 0.38 H (0.24-0.36) K/mm3 Eos # (Auto) 0.08 (0.04-0.36) K/mm3 Baso # (Auto) 0.01 (0.01-0.08) K/mm3 Sodium 139 (136-145) mEq/L Potassium 3.3 L (3.5-5.1) mEq/L Chloride 104 (98-107) mEq/L Carbon Dioxide 22 (21-32) mEq/L Anion Gap 16.3 H (5-15) BUN 6 L (7-18) mg/dL Creatinine 0.6 (0.55-1.02) mg/dL Est Cr Clr Drug Dosing 117.31 mL/min Estimated GFR (MDRD) > 60 (>60) mL/min BUN/Creatinine Ratio 10.0 L (14-18) Glucose 74 (70-99) mg/dL Calcium 8.6 (8.5-10.1) mg/dL Magnesium 1.8 (1.8-2.4) mg/dL Total Bilirubin 0.7 (0.2-1.0) mg/dL AST 17 (15-37) U/L ALT 18 (14-59) U/L Alkaline Phosphatase 74 (46-116) U/L C-Reactive Protein 2.3 H* (<1.0) mg/dL Total Protein 7.0 (6.4-8.2) g/dl Albumin 3.1 L (3.4-5.0) g/dl Globulin 3.9 gm/dL Albumin/Globulin Ratio 0.8 L (1-2) Lipase 83 (73-393) U/L Urine Color Yellow (Yellow) Urine Appearance Clear (Clear) Urine pH 6.0 (5.0-8.0) Ur Specific [place] 1.015 (1.005-1.030) Urine Protein Negative (Negative) Urine Glucose (UA) Negative (Negative) Urine Ketones 3+ H (Negative) Urine Occult Blood Negative (Negative) Urine Nitrite Negative (Negative) Urine Bilirubin Negative (Negative) Urine Urobilinogen 0.2 (0.2-1.0) Ur Leukocyte Esterase Trace H (Negative) Urine RBC 0-5 (0-5) /hpf Urine WBC 5-10 H (0-5) /hpf Ur Squamous Epith Cells 5-10 H (0-5) /hpf Urine Bacteria Few (FEW) /hpf Urine Mucus Few (FEW) /hpf Meds: Medications Discontinued Medications Generic Name Dose Route Start Last Admin Trade Name Freq PRN Reason Stop Dose Admin Sodium Chloride 1,000 mls @ 999 mls/hr 08/17/21 18:44 08/17/21 19:20 Normal Saline IV 08/17/21 19:44 999 mls/hr ONETIME ONE Administration - Radiology Interpretation Free Text/Narrative:: Radiology report of the abdominal ultrasound shows liver within normal limits gallbladder moderately dilated but no evidence of gallstones or gallbladder wall thickening or pericholecystic fluid negative Garcia sign common bile duct and pancreas are normal kidneys right and left are both normal no hydronephrosis aorta is normal spleen within normal limits scanning of the right lower quadrant in the area of pain was performed the technologist noted multiple peristalsis gas/fluid bowel loops are seen which limits visualization allowing for this no definite sonographic abnormality is seen. - Re-Assessments/Exams Free Text/Narrative Re-Assessment/Exam: 08/17/21 20:14 Blood cell count 9200 hemoglobin 14.2 hematocrit 42.7 platelet count is 166,085% neutrophils sodium 139 potassium 3.3 chloride 104 CO2 is 22 BUN is 6 creatinine 0.6 blood sugar 74 reactive protein 2.3 total bilirubin 0.7 AST 17 ALT is 18 alkaline phosphatase is 74 lipase is 83 urinalysis is pending 08/17/21 21:22 Spent a lot of time at the bedside reviewing the patient's results. White blood cell count is normal, CRP is mildly elevated, the ultrasound is unremarkable however does not always rule out acute appendicitis and sometimes more advanced imaging including a CT scan or in particular with and MRI might be beneficial. Patient's pain is actually more in the epigastric region now and not in the right lower quadrant.I will have her recheck with her primary physician this morning Departure - Departure Time of Disposition: 21:30 Disposition: Home, Self-Care 01 Condition: Fair Clinical Impression: Abdominal pain affecting Abdominal pain Qualifiers: Abdominal location: upper abdomen, unspecified Qualified Code(s): R10.10 - Upper abdominal pain, unspecified - Discharge Information Instructions: Abdominal Pain During , [id number], Abdominal Pain, Adult, [id number] Referrals: Court Brar MD [Primary Care Provider] - Forms: ED Department Discharge Additional Instructions: Recommend recheck tomorrow. Often it is difficult to diagnose appendicitis with just an ultrasound and labs. I wanted to get rechecked in the morning to make sure you do not have any persistent abdominal pain to see if we need to do any other work-up or evaluation. Otherwise you may need an MRI of the abdomen while you are rule out acute appendicitis or general surgery consult as well as repeat labs. Return to the urgency department with increasing pain, vomiting unable keep down fluids, unable to pass gas or stool per rectum, vaginal bleeding, cramping, fevers or worsening symptoms Sepsis Event Note (ED) - Focused Exam Vital Signs: Vital Signs Temp Pulse Resp BP Pulse Ox 08/17/21 17:39 100.1 F 86 20 124/64 100 - My Orders Last 24 Hours: My Active Orders 08/17/21 18:24 Communication Order [RC] ASDIRECTED Communication Order [RC] ASDIRECTED Communication Order [RC] ASDIRECTED Communication Order [RC] PER UNIT ROUTINE 08/17/21 18:45 Abdomen Comp [US] Stat - Assessment/Plan Last 24 Hours: My Active Orders 08/17/21 18:24 Communication Order [RC] ASDIRECTED Communication Order [RC] ASDIRECTED Communication Order [RC] ASDIRECTED Communication Order [RC] PER UNIT ROUTINE 08/17/21 18:45 Abdomen Comp [US] Stat
--- NOTE | 2021-08-18 08:16 | US ---
Abdominal ultrasound: Multiple real-time images were obtained of the abdomen. Comparison: No prior abdominal imaging is available. Findings: Pancreas appears within normal limits. Liver shows no focal abnormality. Abdominal aorta shows no aneurysm. Gallbladder contains no shadowing gallstones. No gallbladder wall thickening or biliary duct dilatation is seen. Kidneys show no hydronephrosis or mass. Right kidney has a length of 11.2 cm and left kidney has a length of 11.6 cm. Spleen size is normal. Inferior vena cava is patent. Main portal vein shows normal hepatopedal flow. Peristalsing bowel is noted by scanning technologist within the right lower abdomen. Index is not visualized with certainty. Impression: 1. Appendix is not definitely visualized. Please correlate with patient's symptoms and white count. 2. Other portions of the abdominal ultrasound appear within normal limits. Diagnostic code #1 I agree with preliminary report from [facility], finalized on 08/17/21, 9:56 PM NETWORK [employer]CH[employer]
== END 2021-08-17 22:15 | disposition home or self-care (01) ==
LOC: JD.ED 17:16
DX: R10.11 Right upper quadrant pain (principal); R10.12 Left upper quadrant pain; Z91.040 Latex allergy status
CPT/HCPCS: 36415; 76700; 80053; 81001; 83690; 83735; 85025; 86140; 99284; J7030

== ENCOUNTER 2022-01-13 11:33 | Inpatient (IN) | payer BC ==
[2022-01-14] MEDS ORDERED: Bupivacaine 0.25% 10 ML SDV ONE
[2022-01-14] MEDS ORDERED: Nalbuphine HCl 10 MG/ 1ML Amp IVPUSH PRN (16:10)
[2022-01-14] MEDS ORDERED: Oxytocin/Lactated Ringers 10 UNIT/1,000 ML BAG IV SCH (16:15)
[2022-01-14] MEDS: Lactated Ringers 1,000 ML IV SCH ×3 (16:41→22:06)
[2022-01-14] MEDS ORDERED: Ampicillin 2 GM in Sodium Chloride 0.9% 100 ML IV ONE (16:45)
[2022-01-14] MEDS: Ampicillin 1 GM in Sodium Chloride 0.9% 100 ML IV SCH (20:29)
[2022-01-14] MEDS ORDERED: diphenhydrAMINE 50 MG/ML SDV IVPUSH PRN (21:21)
[2022-01-14] MEDS ORDERED: fentaNYL 100 MCG/2 ML SDV EPIDUR PRN (21:21)
[2022-01-14] MEDS ORDERED: ePHEDrine 50 MG/ML SDV IVPUSH PRN (21:21)
[2022-01-14] MEDS ORDERED: Bupivacaine/fentaNYL/NS 100 ML Bag EPIDUR PRN (21:21)
[2022-01-15] MEDS ORDERED: Ibuprofen 600 MG Tab PO PRN (01:01)
[2022-01-15] MEDS ORDERED: Docusate Sodium 100 MG Cap PO PRN (01:01)
[2022-01-15] MEDS ORDERED: Hydrocortisone Acetate 25 MG Supp RECTAL PRN (01:01)
[2022-01-15] MEDS ORDERED: Acetaminophen 325 MG Tab PO PRN (01:01)
[2022-01-15] MEDS ORDERED: Benzocaine/Menthol 20%-0.5% Spray 78 GM Cannister TOP PRN (01:01)
[2022-01-15] MEDS ORDERED: Witch Hazel Medicated Pads 40/Jar TOP PRN (01:01)
[2022-01-15] MEDS ORDERED: Magnesium Hydroxide 400 MG/5 ML Susp 30 ML Cup PO PRN (01:01)
[2022-01-15] MEDS ORDERED: Oxytocin/Lactated Ringers 10 UNIT/1,000 ML BAG IV SCH (01:01)
[2022-01-15] MEDS ORDERED: Prenatal Multivitamin with Calcium/Folic Acid/Iron Tab PO SCH (09:00)
[2022-01-15] MEDS: Ampicillin 1 GM in Sodium Chloride 0.9% 100 ML IV SCH (11:34)
[2022-01-16 08:41] VITALS: BP 113/62; PULSE 81
== END 2022-01-16 09:30 | disposition home or self-care (01) | DRG 560 ==
LOC: JD.OB 01-14 16:01 → OBSVTOIN 01-14 23:33 → JD.OB 01-14 23:34
PROVIDERS: ADMIT Obstetrics & Gynecology; ATTEND Obstetrics & Gynecology
PROC: 10E0XZZ Delivery of Products of Conception, External Approach (ICD-10-PCS; principal; 2022-01-14)
PROC: 3E033VJ Introduction of Other Hormone into Peripheral Vein, Percutaneous Approach (ICD-10-PCS; 2022-01-14)
PROC: 0KQM0ZZ Repair Perineum Muscle, Open Approach (ICD-10-PCS; 2022-01-14)
PROC: 3E0R3BZ Introduction of Anesthetic Agent into Spinal Canal, Percutaneous Approach (ICD-10-PCS; 2022-01-14)
PROC: 00HU33Z Insertion of Infusion Device into Spinal Canal, Percutaneous Approach (ICD-10-PCS; 2022-01-14)
PROC: 10907ZC Drainage of Amniotic Fluid, Therapeutic from Products of Conception, Via Natural or Artificial Opening (ICD-10-PCS; 2022-01-14)
DX: O48.0 Post-term pregnancy (principal); Z3A.40 40 weeks gestation of pregnancy; Z37.0 Single live birth; Z91.040 Latex allergy status; O99.824 Streptococcus B carrier state complicating childbirth; O70.1 Second degree perineal laceration during delivery; O99.344 Other mental disorders complicating childbirth; F41.9 Anxiety disorder, unspecified; F32.A Depression, unspecified
CPT/HCPCS: 36415; 51702; 59025; 59409; 85025; 86592; 86850; 86900; 86901; A9270-GY; J0290; J2300; J2590; J3010; J3490; J7120

== ENCOUNTER 2023-08-10 07:29 | Inpatient (IN) | payer BC ==
[2023-08-10] MEDS ORDERED: Nalbuphine HCl 10 MG/ 1ML Amp IVPUSH PRN (20:29)
[2023-08-10] MEDS ORDERED: Lidocaine 1% 50 ML MDV INJECT PRN (20:29)
[2023-08-10] MEDS ORDERED: Ondansetron 4 MG/2 ML SDV IVPUSH PRN (20:29)
[2023-08-10] MEDS ORDERED: Acetaminophen 325 MG Tab PO PRN (20:29)
[2023-08-10] MEDS ORDERED: Sodium Chloride 0.9% 10 ML Syringe FLUSH PRN (20:29)
[2023-08-10 20:45] LABS: BASOPHILS PERCENT AUTO 0.3 % (0.0-1.0); EOSINOPHILS ABSOLUTE AUTO 0.1 K/mm3 (0.0-0.4); EOSINOPHILS PERCENT AUTO 1.2 % (0.0-6.0); HEMATOCRIT 39.9 % (37.0-47.0); HEMOGLOBIN 13.7 gm/dl (12.0-16.0); IMMATURE GRAN ABSOLUTE AUTO 0.04 K/mm3 (0.00-0.05); IMMATURE GRAN PERCENT AUTO 0.4 % (0.0-0.4); LYMPHOCYTES PERCENT AUTO 18.7 % (24.0-44.0); MEAN CORPUSCULAR HEMOGLOBIN 31.3 pg (28.0-32.0); MEAN CORPUSCULAR HGB CONC 34.3 g/dl (32.0-36.0); MEAN CORPUSCULAR VOLUME 91.1 fl (83.0-99.0); MEAN PLATELET VOLUME 10.7 fl (9.4-12.3); MONOCYTES ABSOLUTE AUTO 0.5 K/mm3 (0.0-0.8); MONOCYTES PERCENT AUTO 4.8 % (0.0-8.0); NEUTROPHILS PERCENT AUTO 74.6 % (41.0-71.0); PLATELET COUNT,PLT 162 K/mm3 (150-400); RED BLOOD CELL COUNT 4.38 M/mm3 (4.10-5.30); WHITE BLOOD CELL COUNT,WBC 10.68 K/mm3 (3.9-11.3)
[2023-08-10] MEDS ORDERED: Oxytocin/Lactated Ringers 30 UNIT/500 ML BAG IV SCH ×2 (20:45)
[2023-08-10] MEDS ORDERED: Sodium Chloride 0.9% 10 ML Syringe FLUSH SCH (21:00)
[2023-08-11] MEDS: Lactated Ringers 1,000 ML IV SCH ×2 (01:03→05:26)
[2023-08-11] MEDS ORDERED: ePHEDrine 50 MG/ML SDV IVPUSH PRN (01:16)
[2023-08-11] MEDS ORDERED: fentaNYL 100 MCG/2 ML SDV EPIDUR PRN (01:16)
[2023-08-11] MEDS ORDERED: Bupivacaine/fentaNYL/NS 100 ML Bag EPIDUR PRN (01:16)
[2023-08-11] MEDS ORDERED: diphenhydrAMINE 50 MG/ML SDV IVPUSH PRN (01:16)
[2023-08-11] MEDS ORDERED: Lidocaine 1% 10 ML MDV ONE (06:00)
[2023-08-11] MEDS ORDERED: Witch Hazel Medicated Pads 40/Jar TOP PRN (12:39)
[2023-08-11] MEDS ORDERED: Ibuprofen 600 MG Tab PO PRN (12:39)
[2023-08-11] MEDS ORDERED: Acetaminophen 325 MG Tab PO PRN (12:39)
[2023-08-11] MEDS ORDERED: Benzocaine/Menthol 20%-0.5% Spray 78 GM Cannister TOP PRN (12:39)
[2023-08-11] MEDS ORDERED: Docusate Sodium 100 MG Cap PO PRN (12:39)
[2023-08-12 08:27] VITALS: BP 117/68; PULSE 80
== END 2023-08-12 13:00 | disposition home or self-care (01) | DRG 560 ==
LOC: JD.OB 07:29 → INTOOBSV 20:23 → OBSVTOIN 08-11 07:29 → JD.OB 08-11 07:30
PROVIDERS: ADMIT Obstetrics & Gynecology; ATTEND Obstetrics & Gynecology
PROC: 10E0XZZ Delivery of Products of Conception, External Approach (ICD-10-PCS; principal; 2023-08-11)
PROC: 10907ZC Drainage of Amniotic Fluid, Therapeutic from Products of Conception, Via Natural or Artificial Opening (ICD-10-PCS; 2023-08-11)
PROC: 3E033VJ Introduction of Other Hormone into Peripheral Vein, Percutaneous Approach (ICD-10-PCS; 2023-08-11)
PROC: 3E0R3BZ Introduction of Anesthetic Agent into Spinal Canal, Percutaneous Approach (ICD-10-PCS; 2023-08-11)
PROC: 00HU33Z Insertion of Infusion Device into Spinal Canal, Percutaneous Approach (ICD-10-PCS; 2023-08-11)
PROC: 0KQM0ZZ Repair Perineum Muscle, Open Approach (ICD-10-PCS; 2023-08-11)
DX: O48.0 Post-term pregnancy (principal); O70.1 Second degree perineal laceration during delivery; Z37.0 Single live birth; Z3A.40 40 weeks gestation of pregnancy
CPT/HCPCS: 36415; 51701; 59025; 85025; 86592; 86850; 86900; 86901; A9270-GY; J3010; J3490; J7120; J7999

== ENCOUNTER 2023-08-25 15:26 | Emergency (ER) | payer BC ==
[2023-08-25] MEDS ORDERED: Sodium Chloride 0.9% 10 ML Syringe FLUSH PRN (15:58)
[2023-08-25] MEDS ORDERED: Lactated Ringers 1,000 ML IV ONE (16:00)
[2023-08-25] MEDS ORDERED: Ondansetron 4 MG/2 ML SDV IVPUSH ONE (16:00)
[2023-08-25] MEDS ORDERED: Sodium Chloride 0.9% 10 ML Syringe FLUSH ONE (16:01)
[2023-08-25] MEDS ORDERED: Iopamidol 612 MG/ML 100 ML Bottle IVPUSH ONE (16:01)
[2023-08-25 16:25] LABS: APPEARANCE,URINE SLT CLOUDY (Clear); BILIRUBIN,URINE 1+ (Negative); COLOR,URINE DARK YELLOW (Yellow); GLUCOSE,URINE NEGATIVE (Negative); KETONES,URINE NEGATIVE (Negative); LEUKOCYTE ESTERASE,URINE NEGATIVE (Negative); NITRITE,URINE NEGATIVE (Negative); OCCULT BLOOD,URINE 2+ (Negative); PH,URINE 5.5 (5.0-8.0); PROTEIN,URINE TRACE (Negative); UROBILINOGEN,URINE 0.2 (0.2-1.0)
[2023-08-25 16:33] LABS: BASOPHILS PERCENT AUTO 0.3 % (0.0-1.0); EOSINOPHILS ABSOLUTE AUTO 0.1 K/mm3 (0.0-0.4); EOSINOPHILS PERCENT AUTO 0.4 % (0.0-6.0); HEMATOCRIT 52.7 % (37.0-47.0); HEMOGLOBIN 17.8 gm/dl (12.0-16.0); IMMATURE GRAN ABSOLUTE AUTO 0.04 K/mm3 (0.00-0.05); IMMATURE GRAN PERCENT AUTO 0.3 % (0.0-0.4); LYMPHOCYTES ABSOLUTE AUTO 0.5 K/mm3 (1.0-4.8); LYMPHOCYTES PERCENT AUTO 3.4 % (24.0-44.0); MEAN CORPUSCULAR HGB CONC 33.8 g/dl (32.0-36.0); MEAN CORPUSCULAR VOLUME 91.7 fl (83.0-99.0); MEAN PLATELET VOLUME 10.3 fl (9.4-12.3); MONOCYTES ABSOLUTE AUTO 0.2 K/mm3 (0.0-0.8); MONOCYTES PERCENT AUTO 1.4 % (0.0-8.0); NEUTROPHILS ABSOLUTE AUTO 13.8 K/mm3 (1.8-7.7); NEUTROPHILS PERCENT AUTO 94.2 % (41.0-71.0); PLATELET COUNT,PLT 223 K/mm3 (150-400); RED BLOOD CELL COUNT 5.75 M/mm3 (4.10-5.30); WHITE BLOOD CELL COUNT,WBC 14.62 K/mm3 (3.9-11.3)
[2023-08-25 16:50] LABS: BACTERIA,URINE FEW /hpf (FEW); MUCUS,URINE MANY /hpf (FEW); RBC,URINE 0-5 /hpf (0-5); SQUAMOUS EPITHELIAL CELLS,UR 0-5 /hpf (0-5); WBC,URINE 0-5 /hpf (0-5)
[2023-08-25 17:00] LABS: A/G RATIO 0.8 (1-2); ALBUMIN 3.6 g/dl (3.4-5.0); ANION GAP 16.3 (5-15); BILIRUBIN TOTAL 1.3 mg/dL (0.2-1.0); BUN/CREATININE RATIO 18.8 (14-18); C-REACTIVE PROTEIN 0.9 mg/dL (<1.0); CALCIUM 9.2 mg/dL (8.5-10.1); CREATININE 0.8 mg/dL (0.55-1.02); EST CRCL DRUG DOSING (CG) 86.37 mL/min; MAGNESIUM 1.7 mg/dL (1.8-2.4); PROTEIN TOTAL,TP 7.9 g/dl (6.4-8.2)
[2023-08-25 17:01] LABS: POTASSIUM,K 4.3 mEq/L (3.5-5.1)
[2023-08-25 17:12] LABS: CORONAVIRUS COVID-19 NAA POSITIVE (NEGATIVE); INFLUENZA A NAA NEGATIVE (NEGATIVE)
[2023-08-25 17:48] LABS: SLIDE REVIEW ABNORMAL SMEAR
[2023-08-25 18:13] VITALS: BP 109/70; PULSE 87
== END 2023-08-25 18:10 | disposition home or self-care (01) ==
LOC: JD.ED 15:26
DX: U07.1 COVID-19 (principal); Z91.040 Latex allergy status
CPT/HCPCS: 0240U; 36415; 74177; 80053; 81001; 83735; 85025; 86140; 87045; 87046; 87338; 87899; 96361; 96374; 99284; J2405; J3490; J7120; Q9967

== ENCOUNTER 2024-12-30 17:13 | Emergency (ER) | payer BC ==
[2024-12-30 20:23] VITALS: BP 114/75; PULSE 78
== END 2024-12-30 19:21 | disposition home or self-care (01) ==
LOC: JD.ED 17:13
DX: R60.0 Localized edema (principal); M79.662 Pain in left lower leg; Z91.040 Latex allergy status; Z79.899 Other long term (current) drug therapy
CPT/HCPCS: 93971-26-LT; 93971-LT; 99283